=== PATIENT | female | born 1965 | race Caucasian/White ===

== ENCOUNTER → 2016-05-13 | Day surgery (SDC) | payer OTHER ==
[2016-04-29 09:52] VITALS: Ht 177.8 cm; Wt 113.6 kg
[~2016-05-13] VITALS: Ht 177.8 cm; Wt 113.6 kg
[~2016-05-13] MED LIST: ALBU1AER9 PO; ASCA500 PO; ATROPINE SULFATE 0.1 MG/ML 5ML SYR IV PRN; AZEL0.15 NAE; BUPIVACAINE/EPINEPHRINE 0.5% MPF 1:200,000 30 ML VIAL ONE; CALCTAB7 PO; CHOL100027 PO; CLINDAMYCIN PHOS 150 MG/ML 2 ML VIAL IV SCH; CMD5 PO; CYAN500T PO; DEXAMETHASONE SOD INJ 4 MG/ML VIAL ONE; DOXE10CA PO; ELET40TA PO; ENOX30IN4 SQ; EpHEDrine SULFATE INJ 50 MG/ML AMP IV PRN; FENTANYL CITRATE INJ 50 MCG/1 ML 2 ML VIAL IV PRN; FENTANYL CITRATE INJ 50 MCG/1 ML 2 ML VIAL ONE; FERR28TA2 PO; FURO-85 PO; GLC/500 PO; LACTATED RINGER'S 1000ML 1,000 ML IV SCH; LIDOCAINE HCL 1% 20 ML VIAL ONE; LIDOCAINE HCL 2% 2 ML VIAL (20MG/ML) ONE; MELA1TAB22 PO; METOCLOPRAMIDE HCL INJ 5 MG/ML 2 ML VIAL IV PRN; MIDAZOLAM HCL 1 MG/ML 2ML VIAL ONE; MULT-506 PO; MoRPHine SULFATE 4 MG/ML 1 ML CARP\\VIAL IV PRN; ONDANSETRON INJ 2 MG/ML 2 ML VIAL IV PRN; ONDANSETRON INJ 2 MG/ML 2 ML VIAL ONE; OXYCODONE/ACETAMINOPHEN 5-325 TAB PO PRN; POTASSIUM PO; PREG100C PO; PREG200C PO; PROP10TA7 PO; PROPOFOL IV EMULSION 10 MG/ML 20 ML VIAL IV ONE; SNG10 PO; SODIUM CHLORIDE 0.9% 1000ML 1,000 ML IV SCH; WARF-246 PO
--- NOTE | 2016-05-13 09:49 | History & Physical Bridge - SC ---
H&P Re-Evaluation Bridge Note: I have examined the patient, reviewed the History & Physical and in the interval since the performance of the History & Physical I have noted the following changes of clinical significance: No changes noted
--- NOTE | 2016-05-13 11:36 | Discharge Instructions-SurgCtr ---
Discharge Instructions Date of Service May 13, 2016. Visit Reason for Visit: Right Femur Osteochondroma Discharge Discharge Diagnosis / Problem: excision right femur osteochondroma Discharge Goals Goal(s): Decrease discomfort, Improve function, Increase independence Medications Stopped Medications Name(s): Coumadin stopped and lovenox started. Ref meds. Glucophage stopped for 3 days Restart Stopped Medication(s): Restart your Coumadin this evening 05/03/12 (take 15mg) Will most likely need to resume Lovenox , or until your INR is therapeutic. Recheck your PT/INR on Friday05/17/16 Activity Recommendations Activity Limitations: as noted below Lifting Limitations: gradually increase as tolerated Exercise/Sports Limitations: gradually increase as tolerated May Resume Sexual Activity: when tolerated Shower/Bathe: keep incision dry Weightbearing Status: Right weightbearing (as tolerated) Anesthesia . Post Anesthesia Instructions: If you have had General Anesthesia or IV Sedation: * Do not drive today. * Resume driving when surgeon permits. * Do not make important decisions or sign legal documents today. * Call surgeon for: 1. Temperature elevations greater than 101 degrees F. 2. Uncontrollable pain. 3. Excessive bleeding. 4. Persistent nausea and vomiting. 5. Medication intolerance (nausea, vomiting or rash). * For nausea and vomiting use only clear liquids such as: tea, soda, bouillon until nausea subsides, then gradually increase diet as tolerated. * If you have any concerns or questions, call your surgeon's office. If physician is unavailable and it is an emergency, call 911 or go to the nearest emergency room. . Instructions / Follow-Up Instructions / Follow-Up DIET: * Resume previous diet. MEDICATIONS: * Please take your prescriptions as instructed at your pre-op appointment and/ or see medication discharge instructions listed above. * If concerns develop, call your physician's office at . SPECIAL CARE INSTRUCTIONS: * Ice/Elevate as instructed. * Keep dressing clean, dry, intact. * Your surgical extremity may be discolored due to prepping agents used on the skin. A bluish-green tint is a normal variant and should not cause alarm. Call your doctor at [phone] if: * Temperature above 101 degrees * Pain not relieved by pain medicine ordered * There is increased drainage or redness from any incision * You have any unanswered questions, problems or concerns. FOLLOW UP VISIT: * If not already scheduled, please call the office at to schedule a follow-up appointment. Diet Recommendations Home Diet: resume previous diet Procedures Procedures Performed: Excision right femur osteochondroma Pending Studies Studies pending at discharge: yes List of pending studies: Bone biopsy right femur-osteochondroma Medical Emergencies . Who to Call and When: Medical Emergencies: If at any time you feel your situation is an emergency, please call 911 immediately. . Non-Emergent Contact Non-Emergency issues call your: Primary Care Provider . . "Provider Documentation" section prepared by Samir Gould. [place] Drug Monitoring Program Search Results: no issues identified
--- NOTE | 2016-05-13 11:39 | [facility] Post Operative Brief Note ---
Immediate Operative Summary Operative Date May 13, 2016. Pre-Operative Diagnosis Right Femur Osteochondroma Post-Operative Diagnosis Same Procedure(s) Performed Excision right femur osteochondroma Surgeon Dr. Lau Bisque Finisher Surgeon(s) Gurjit Gage MD Estimated Blood Loss 3 ml Findings same Specimens A.) Right Femur Osteochondroma Drains none Anesthesia general Complication(s) None Disposition Recovery Room / PACU
--- NOTE | 2016-05-13 11:42 | [facility] Operative Report ---
Operative Report Operative Date May 13, 2016. Pre-Operative Diagnosis Right Femur Osteochondroma Post-Operative Diagnosis Same Procedure(s) Performed Excision right femur osteochondroma Surgeon Dr. Lau Automotive Brake Technician Surgeon(s) Gurjit Gage MD Estimated Blood Loss 3 ml Findings Small Osteochondroma right distal femur. Fluids (cc crystalloids) 900 Specimens A.) Right Femur Osteochondroma Drains n/a Anesthesia LMA Complication(s) None Disposition Recovery Room / PACU (Stable) Implants n/a Indications The patient is a 50 year old female with a painful mass along the right distal lateral femur, that has not responded to conservative treatment. The patient understands the risks of surgery, which include but are not limited to: bleeding , infection, re-operation, damage to nerves and arteries, and continued pain. The patient understands all of these instructions and explanations, all of their questions have been satisfactorily addressed. The patient has elected to proceed with surgery and the informed consent was signed. Description of Procedure The patient was taken to the Operating Room and placed in the supine position on the operating table. After a multidisciplinary time-out was performed identifying my initials on the right lower leg as the correct and operative limb , the patient agreed. Prior to the incision being made, 600 mg of intravenous clindamycin was given. The right leg was prepped and draped in the usual Orthopaedic sterile fashion. After the local anesthetic had taken affect, and localizing the osteochondroma with fluoroscopy, a small 5 cm incision was made laterally, centered over the mass. This was carried down to the IT band and the mass was easily palpated. The IT band was split, 2 easily identified the osteochondroma along the distal lateral femur. The osteochondroma was removed with a small curved osteotome and rongeur. This was sent as specimen. The wound was copiously irrigated. Bone wax was placed over top of the small base of the excised osteochondroma. Again the wound was copiously irrigated. The IT band was closed with 0 Vicryl in a running locked fashion. The subcutaneous layer was closed with 3-0 Vicryl. The skin was closed with 3-0 Prolene in a running subcuticular fashion. Steri-Strips were placed over top. The incision was covered with Xeroform, 4x4's, sterile cast padding and an EDYTA. The sponge and needle counts were correct. Postoperative instructions: The patient will be weightbearing as tolerated. She will continue bridging with Lovenox and restarted her Coumadin tonight per the Coumadin clinic. She will follow-up with physical therapy in 2-3 days. She will follow-up with Dr. Lau in 10-15 days for suture removal. I attest to the content of the Intraoperative Record and any orders documented therein. Any exceptions are noted below.
--- NOTE | 2016-05-13 12:17 | Anesthesia Progress Nt - [facility] ---
Anesthesia Post Op Note Date & Time May 13, 2016 at 12:17 Vital Signs Pain Intensity: 0 Vital Signs Past 12 Hours Date Time Temp Pulse Resp B/P Pulse Ox O2 Delivery O2 Flow Rate FiO2 05/13/16 12:02 36.4 75 16 114/75 99 Mask 6 05/13/16 09:28 36.8 62 18 135/90 100 Room Air Notes Mental Status: alert / awake / arousable, participated in evaluation Pt Amnestic to Procedure: Yes Nausea / Vomiting: adequately controlled Pain: adequately controlled Airway Patency, RR, SpO2: stable & adequate BP & HR: stable & adequate Hydration State: stable & adequate Anesthetic Complications: no major complications apparent
[2016-05-13 12:50] VITALS: BP 148/93; PULSE 76; TEMP 36.7; O2SAT 97
== END | disposition home or self-care (01) ==
LOC: X.SURG 08:46
PROVIDERS: ATTEND Orthopaedic Surgery Sports Medicine
DX: D16.9 Benign neoplasm of bone and articular cartilage, unspecified (principal); Z86.718 Personal history of other venous thrombosis and embolism; J45.909 Unspecified asthma, uncomplicated; F41.9 Anxiety disorder, unspecified; E11.9 Type 2 diabetes mellitus without complications; E66.9 Obesity, unspecified; Z68.35 Body mass index [BMI] 35.0-35.9, adult; Z98.890 Other specified postprocedural states; Z79.01 Long term (current) use of anticoagulants

== ENCOUNTER → 2016-10-17 | Outpatient (CLI) | payer OTHER ==
[~2016-10-17] MED LIST changes: -ATROPINE SULFATE 0.1 MG/ML 5ML SYR IV PRN; -BUPIVACAINE/EPINEPHRINE 0.5% MPF 1:200,000 30 ML VIAL ONE; -CLINDAMYCIN PHOS 150 MG/ML 2 ML VIAL IV SCH; -DEXAMETHASONE SOD INJ 4 MG/ML VIAL ONE; -EpHEDrine SULFATE INJ 50 MG/ML AMP IV PRN; -FENTANYL CITRATE INJ 50 MCG/1 ML 2 ML VIAL IV PRN; -FENTANYL CITRATE INJ 50 MCG/1 ML 2 ML VIAL ONE; -LACTATED RINGER'S 1000ML 1,000 ML IV SCH; -LIDOCAINE HCL 1% 20 ML VIAL ONE; -LIDOCAINE HCL 2% 2 ML VIAL (20MG/ML) ONE; -METOCLOPRAMIDE HCL INJ 5 MG/ML 2 ML VIAL IV PRN; -MIDAZOLAM HCL 1 MG/ML 2ML VIAL ONE; -MoRPHine SULFATE 4 MG/ML 1 ML CARP\\VIAL IV PRN; -ONDANSETRON INJ 2 MG/ML 2 ML VIAL IV PRN; -ONDANSETRON INJ 2 MG/ML 2 ML VIAL ONE; -OXYCODONE/ACETAMINOPHEN 5-325 TAB PO PRN; -PROPOFOL IV EMULSION 10 MG/ML 20 ML VIAL IV ONE; -SODIUM CHLORIDE 0.9% 1000ML 1,000 ML IV SCH
--- NOTE | 2016-10-17 14:06 | MAMMOGRAPHY REPORT ---
BILATERAL DIGITAL SCREENING MAMMOGRAM TOMOSYNTHESIS WITH CAD: 10/17/2016 CLINICAL HISTORY: Routine screening. TECHNIQUE: Breast tomosynthesis in addition to standard 2D mammography was performed. Current study was also evaluated with a Computer Aided Detection (CAD) system. COMPARISON: Comparison is made to exams dated: 10/16/2015 mammogram, 10/12/2014 mammogram, 10/11/2013 m ammogram, 10/09/2012 mammogram, 10/02/2011 mammogram, and 09/11/2010 mammogram - [facility]. BREAST COMPOSITION: There are scattered areas of fibroglandular density in both breasts. FINDINGS: No suspicious masses, calcifications, or areas of architectural distortion are noted in ei ther breast. There has been no significant interval change compared to prior exams. IMPRESSION: ACR BI-RADS CATEGORY 1: NEGATIVE There is no mammographic evidence of malignancy. A 1 year screening mammogram is recommended. The pa tient will receive written notification of the results. Approximately 10% of breast cancers are not detected with mammography. A negative mammographic report should not delay biopsy if a clinically suggestive mass is present. Michelle Crespo M.D. /:10/17/2016 12:46:51 Forklift Driver: Natalie CARR(Mg)(M), [facility] letter sent: Normal 1/2 BI-RADS Code: ACR BI-RADS Category 1: Negative
== END | disposition home or self-care (01) ==
LOC: C.MAMM 10:56
PROVIDERS: ATTEND Family Medicine
DX: Z12.31 Encounter for screening mammogram for malignant neoplasm of breast (principal)

== ENCOUNTER 2017-05-25 20:00 | Emergency (ER) | payer OTHER ==
[~2017-05-25] VITALS: Ht 177.8 cm; Wt 123.2 kg
[2017-05-25 20:05] VITALS: TEMP 36.6; Ht 177.8 cm; Wt 123.2 kg
[2017-05-25] MEDS ORDERED: WARF10TA4 PO (20:29)
[2017-05-25] MEDS ORDERED: POTA20TA16 PO (20:33)
[2017-05-25] MEDS ORDERED: MAGN1TAB16 PO (20:36)
[2017-05-25] MEDS ORDERED: RIBO1TAB PO (20:36)
[2017-05-25 20:48] VITALS: BP 143/90; PULSE 74; O2SAT 96
--- NOTE | 2017-05-25 21:02 | EMERGENCY ROOM VISIT NOTE ---
History First contact with patient: 20:10 Chief Complaint: EYE ASSESSMENT Stated Complaint: RIGHT ARM AND LEFT EYE IS PUFFY AND HARD TO SEE History of Present Illness The patient is a 52 year old female who presents to the Emergency Room with complaints of swelling around her eyes, right worse than left. Patient reports that she started to notice swelling on Friday, and the swelling has mildly worsened. She also reports mild itching. The patient denies any other recent upper respiratory symptoms such as runny nose, congestion, sore throat or cough. The patient reports that she drank a new wine on Friday, but does not feel that that caused her symptoms. She also ate some new Maltese food from a restaurant that she usually eats. She denies any other seasonal or contact allergies. The patient then remembered that she developed an itchy scalp and crusting of her scalp after having her hair cleaned and dyed the day before. She denies any pain, headache or fevers. She also denies any blurred vision. 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 Social History Smoking Status: Former Smoker Drug Use: none Marital Status: single Housing Status: lives alone Occupation Status: unemployed Current/Historical Medications Scheduled Ascorbic Acid (Vitamin C), 500 MG PO QAM Azelastine Hcl (Astepro), 2 [place] BID Calcium Carbonate-Vitamin D W/ (Caltrate 600 Plus), 1 TAB PO QAM Cholecalciferol (Vitamin D 1000 Unit), 2,000 INTER.UNIT PO QAM Cyanocobalamin (Vitamin B-12), 500 MCG PO QAM Doxepin (Sinequan), 10 MG PO HS Ferrous Sulfate (Iron), 1 TAB PO BID Furosemide (Lasix), 20 MG PO BID Magnesium (Chelated Magnesium), 1 TAB PO DAILY Melatonin-Pyridoxine (Melatonin), 1 TAB PO HS Metformin Hcl (Glucophage), 500 MG PO BID Montelukast (Singulair *), 10 MG PO HS Multivitamin (Multivitamin), 1 TAB PO QAM Potassium Ext Rel (Klor-Con), 20 MEQ PO DAILY Pregabalin (Lyrica), 200 MG PO BID Propranolol (Inderal), 10 MG PO QID Riboflavin (B-2), 400 MG PO DAILY Warfarin Sod (Jantoven), 10 MG PO DAILY Warfarin Sodium (Warfarin Sodium), 5 TAB PO WK Scheduled PRN Albuterol (Proair Hfa), 2 PUFFS PO Q4H PRN for SOB/Wheezing Eletriptan (Relpax), 40 MG PO UD PRN for Migraine Physical Exam Vital Signs Date Time Temp Pulse Resp B/P (MAP) Pulse Ox O2 Delivery O2 Flow Rate FiO2 05/25/17 20:48 74 18 143/90 96 05/25/17 20:05 36.6 74 18 143/90 96 Room Air Right Eye Acuity: 20/70 Left Eye Acuity: 20/40 Physical Exam CONSTITUTIONAL: Healthy and well nourished. Alert and oriented X 3 with positive affect. Patient does not appear in any acute distress. HEENT: Examination shows periorbital edema, right worse than left. The tissue is normal color and fluctuant. It is not warm to palpation. EOMs intact. Pupils equal round and reactive. Further examination shows erythema and scaling of the scalp, consistent with chemical dermatitis. She has no other erythema on the face. Ears and nares are clear. OROPHARYNX: No tonsillar hypertrophy, evidence of angioedema or exudates. NECK: Full active range of motion without discomfort. No JVD or carotid bruits. RESPIRATORY: Clear to auscultation bilaterally with no wheezing, crackles, rhonchi or stridor. CARDIOVASCULAR: Regular rate and rhythm with no murmurs, rubs or gallops. MUSCULOSKELETAL: Full range of motion of all joints without discomfort. INTEGUMENTARY: No rash or other significant dermatologic conditions noted. NEUROLOGIC: No focal neurologic deficits noted. Medical Decision & Procedures ED Course Patient history and physical exam were performed. Nurse's notes were reviewed. Vital signs were reviewed, showing a mildly elevated blood pressure 143/90. Clinical exam and history are most consistent with an allergic contact dermatitis. The patient reports that she has been taking Benadryl. The patient reports that she has also been applying heat to the face. The patient was encouraged to apply cool compresses or ice instead for the swelling. She may also take additional antihistamine such as Claritin for additional relief. She was encouraged to follow-up with her PCP as needed for further management. Return to the emergency department for any significantly worsening swelling or developing swelling of the lips/tongue/throat, difficulty breathing, palpitations or other concerns. The patient was happy with plan of care, and voiced understanding of all discharge instructions. Medical Decision Blood Pressure Screening Patient's blood pressure: Elevated blood pressure Blood pressure disposition: Did not require urgent referral Impression Primary Impression: Allergic reaction to chemical substance Additional Impression: Elevated blood pressure reading Departure Information Dispostion Home / Self-Care Forms HOME CARE DOCUMENTATION FORM, IMPORTANT VISIT INFORMATION Patient Instructions Scary Mommy Additional Instructions Intermittently apply ice to the eyes for swelling and itching. Continue with Benadryl 25-50 mg every 6-8 hours. You may also take Claritin for additional relief. Follow-up with your family doctor as needed for further management. Suggest going to your hairstylist and write down the name of the new products that they used which caused this reaction. Problem Qualifiers Primary Impression: Allergic reaction to chemical substance Encounter type: initial encounter Injury intent: accidental or unintentional Qualified Codes: T65.91XA - Toxic effect of unspecified substance, accidental (unintentional), initial encounter
== END 2017-05-25 20:49 | disposition home or self-care (01) ==
LOC: C.EDB 20:01 → C.EDD 20:49
DX: T65.91XA Toxic effect of unspecified substance, accidental (unintentional), initial encounter (principal); R03.0 Elevated blood-pressure reading, without diagnosis of hypertension; E11.9 Type 2 diabetes mellitus without complications; Z86.718 Personal history of other venous thrombosis and embolism; Z87.891 Personal history of nicotine dependence; Z79.01 Long term (current) use of anticoagulants; Z79.84 Long term (current) use of oral hypoglycemic drugs

== ENCOUNTER → 2017-10-20 | Outpatient (CLI) | payer OTHER ==
[~2017-10-20] MED LIST changes: -CMD5 PO; -ENOX30IN4 SQ; +MAGN1TAB16 PO; +POTA-639 PO; -POTASSIUM PO; -PREG100C PO; +RIBO1TAB PO; +WARF10TA4 PO
--- NOTE | 2017-10-21 07:00 | MAMMOGRAPHY REPORT ---
BILATERAL DIGITAL SCREENING MAMMOGRAM TOMOSYNTHESIS WITH CAD: 10/20/2017 CLINICAL HISTORY: Routine screening. TECHNIQUE: The study was acquired using full field digital technology and interpreted from soft copy. Breast tomosynthesis in addition to standard 2D mammography was performed. Current study was also ev aluated with a Computer Aided Detection (CAD) system. COMPARISON: Comparison is made to exams dated: 10/17/2016 mammogram, 10/16/2015 mammogram, 10/12/2014 m ammogram, 10/11/2013 mammogram, 10/09/2012 mammogram, and 10/02/2011 mammogram - [facility] ter. BREAST COMPOSITION: There are scattered areas of fibroglandular density in both breasts. FINDINGS: There is an 8 mm focal asymmetry in the 12:00 versus central middle one third of the right breast, and a 6 mm focal asymmetry in the 3:00 anterior right breast, for which additional spot compr ession tomosynthesis views and possible ultrasound are recommended. There is stable nodularity in the lateral left breast. No other suspicious mass, architectural distor tion or cluster of microcalcifications is seen. IMPRESSION: ACR BI-RADS CATEGORY 0: INCOMPLETE EVALUATION: NEED ADDITIONAL IMAGING EVALUATION The 8 mm focal asymmetry in the 12:00 versus central right breast, and 6 mm focal asymmetry in the 3: 00 anterior right breast needs additional evaluation. The patient will be called to schedule an appointment. Some breast cancers are not detected with mammography. A negative mammographic report should not gian y biopsy if a clinically suggestive mass is present. Belkis Palmer M.D. ay/:10/20/2017 15:30:35 Web Site Developer: RT Ana(Mg)(M), [facility] letter sent: Addl Imaging 0 BI-RADS Code: ACR BI-RADS Category 0: Incomplete Evaluation: Need Additional Imaging Evaluation
== END | disposition home or self-care (01) ==
LOC: C.MAMM 12:04
PROVIDERS: ATTEND Student in an Organized Health Care Education/Training Program
DX: Z12.31 Encounter for screening mammogram for malignant neoplasm of breast (principal); N64.89 Other specified disorders of breast

== ENCOUNTER 2021-04-24 13:02 | Inpatient (IN) ==
--- NOTE | 2021-04-24 14:13 | Emergency Department Note ---
Impression & Plan Left leg cellulitis, Current use of prison anticoagulation, Surgical wound, non healing, Stage IV pressure ulcer, Supratherapeutic INR ED Provider Note NAME: GABRIELLA VELASQUEZ AGE: 55 SEX: F : 1965 ARRIVES VIA: Walk-In INFORMANT: Patient, ED PROVIDER(S): Godfrey Vale MD Chief Complaint: Foot and ankle wounds, outpatient referral HPI: Patient did present at the behest of the wound memory care program director Cindy Nguyen as well as her primary orthopedist Dr. Mabel Wilkins at [facility] due to concern for worsening left lower extremity wounds and redness. Patient denies any fevers or chills. The patient has had some increasing fatigability. Patient denies any nausea vomiting or issues with defecation or urination. The patient has had chronic wound issues for approximate 3 years surfaced since she had a surgery to her left ankle for arthritic changes. Patient has been seen at the wound cancer center in the past but noticed a new wound over her left second digit and has worsening wound over the medial aspect of the left ankle. Patient has noticed some increasing redness which been ongoing approximate 3 to 4 days. Patient denies any back pain or shortness of breath. Patient is vaccinated for COVID and denies any alcohol tobacco or drug use. Patient was seen today by Cindy Nguyen. They are concerned about surgical wounds that are nonhealing. Patient did have debridement of wounds with minimal bleeding. There is concern for developing cellulitis. Patient does have a new stage IV pressure ulcer to the left second toe which occurred from wearing a toe spacer. Wound was debrided. I had called Dr. Mabel Wilkins's office at [facility] who recommended arterial duplex studies as well as CT scan of the foot. ROS: See HPI for pertinent positives and negatives. A total of 10 systems were reviewed and otherwise negative. Past medical history: See below Surgical history: See below Social history: See below Physical Exam: GENERAL: NAD, wearing glasses, wearing a mask, non-toxic. EYE EXAM: Normal conjunctiva. PERRL, no anisocoria and EOM's grossly intact w/o pain. NECK: Supple, no nuchal rigidity, no adenopathy, non-tender. No signs of meningismus. LUNGS: Clear to auscultation. Normal chest wall mechanics. HEART: NSR, no MRG. ABDOMEN: Abdomen soft, non-tender, normo-active bowel sounds, no masses, no rebound or guarding. BACK: No CVA TTP. SKIN: No rashes and no bruising. UPPER EXTREMITIES: Upper extremities are grossly normal. LOWER EXTREMITIES: Left lower extremity blanching redness with soft compartments and without any blistering, 2 separate stage II ulcerations 1 over the lateral aspect of the dorsum of the foot as well as the medial aspect of the left ankle, stage II-III ulceration over the medial aspect of the left foot as well as a stage IV ulceration to the plantar aspect of the left second digit. NEURO EXAM: A&O x3, cranial nerves II-XII grossly intact, normal speech, moves all 4 extremities on command w/o issue. Good finger to nose, no drift, no sensory deficits. Differential diagnoses: Course: Patient was seen and evaluated the bedside. Full history physical exam was performed. EKG interpreted by me Normal sinus rhythm, rate of 75, normal intervals, normal axis, no ST changes or T WI. Imaging Studies: See Below Cardiac monitoring: An order was placed for continuous cardiac monitoring. The monitor shows a rate of 72 with sinus rhythm. MDM: Patient was seen due to concern for worsening wounds of the left lower extremity that have not healed well postsurgically. The patient was seen in wound care today and referred here for further evaluation and treatment after discussion with her primary orthopedist. Blood work was obtained. I did speak with the pharmacist in order to treat appropriately for cellulitis with possible osteomyelitis. Patient is a normal white count hemoglobin of 10.8. The patient platelet count is unremarkable. The patient's INR is supratherapeutic at 3.8. Kidney function is unremarkable. Urinalysis negative. Covid negative. Patient's chest x-ray is cleared. Orthopedics was recommending arterial Doppler as well as MRI of the foot. Patient's arterial Doppler is unremarkable. MRI of the foot does show that her exam is compromised by motion artifact and metallic hardware. No obvious signs of osteomyelitis. The patient does have soft tissue edema in the forefoot. No obvious abscess. It has been to the on-call hospitalist Tanika Varner PA-C and the patient was admitted by Dr. Ponce. 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 Anxiety Asthma controlled Chronic back pain Deep vein thrombosis LLE (several years ago - control pills)- on warfarin Degenerative disc disease Depression Dysfunctional uterine bleeding GERD (gastroesophageal reflux disease) controlled Insulin resistance metformin BID Migraine on monthly Ajovy injection Morbid obesity Morbid obesity with BMI of 40.0-44.9, adult Osteoarthritis Post traumatic stress disorder Sleep apnea CPAP Symptomatic anemia Surgical History H/O arthroscopy of left knee H/O arthroscopy of right knee x3 Right knee arthroscopy, chondroplasty (03/17/2020): LMA #4 at [facility] [place] History of arthroscopic knee surgery History of back surgery History of colonoscopy History of dilatation and curettage History of foot surgery S/P epidural steroid injection S/P foot surgery, left S/P lumbar fusion Family History Other Asthma Heart disease Hypertension No family history of adverse response to anesthesia Social History Smoking Status: Former smoker Smoking End Date: 2006; Second Hand Exposure: Yes (as a child); Hx Alcohol Use: Yes Hx Substance Use: No Preferred Language: Cuban Communication Ability: Effective Self Pay Specialist Required: No Beliefs That Will Affect Care: None Current Living Situation: Family Current Living Situation Comment: son Feels Safe at Home: Yes Assistive Devices: Contacts, CPAP, Crutches, Denture - Upper, Denture - Lower, Glasses, Hearing Aid - Bilateral and Walker Allergies Allergies Allergy/AdvReac Type Severity Reaction Status Date / Time enoxaparin Allergy Severe Hives Verified 04/24/21 09:23 hydrocortisone Allergy Mild Rash Verified 04/24/21 09:23 Penicillins Allergy Unknown Unknown Verified 04/24/21 09:23 childhood reaction vicryl nylon stitches AdvReac Severe Non-healing Uncoded 04/13/21 10:03 wound Home Meds Home Medications Medication Instructions Recorded Confirmed albuterol sulfate 90 mcg/actuation 1 inh INHALATION Q6H PRN 02/10/20 04/24/21 breath activated powder inhaler,sensor ascorbic acid (vitamin C) 100 mg 300 mg PO QAM 02/10/20 04/24/21 chewable tablet azelastine 137 mcg (0.1 %) nasal 1 spray INTRANASAL BID 02/10/20 04/24/21 spray aerosol cetirizine 10 mg tablet (Zyrtec) 10 mg PO BID 02/10/20 04/24/21 cholecalciferol (vitamin D3) 50 2,000 unit PO QAM 02/10/20 04/24/21 mcg (2,000 unit) tablet (Vitamin D3) cyanocobalamin (vitamin B-12) 50 100 mcg PO QAM 02/10/20 04/24/21 mcg tablet (Vitamin B-12) fremanezumab-vfrm 225 mg/1.5 mL 225 mg SUBCUT MONTHLY 02/10/20 04/24/21 subcutaneous auto-injector (Ajovy) magnesium oxide 400 mg PO QAM 02/10/20 04/24/21 metformin 500 mg tablet 500 mg PO BID 02/10/20 04/24/21 montelukast 10 mg tablet 10 mg PO HS 02/10/20 04/24/21 (Singulair) multivit,Ca,min-iron gluconat 1 3 tab PO QAM 02/10/20 04/24/21 mg-FA 66.7 mcg-biotin 1,000 mcg tablet (Hair,Skin and Nails) omeprazole 20 mg tablet,delayed 20 mg PO QAM 02/10/20 04/24/21 release pregabalin 200 mg capsule (Lyrica) 200 mg PO BID 02/10/20 04/24/21 warfarin 5 mg tablet 5 - 10 mg PO DIRECTED 02/10/20 04/24/21 multivitamin with minerals-folic 2 tab PO DAILY 09/01/20 04/24/21 acid 200 mcg chewable tablet (Adult Multivitamin Gummies) fluoxetine 40 mg capsule 80 mg PO DAILY 04/24/21 04/24/21 furosemide 20 mg tablet (Lasix) 20 mg PO BID 04/24/21 04/24/21 mirtazapine 15 mg tablet (Remeron) 15 mg PO HS 04/24/21 04/24/21 nitroglycerin 0.2 mg/hr 1 patch TOPICAL DAILY 04/24/21 04/24/21 transdermal 24 hour patch potassium chloride 10 mEq 10 meq PO DAILY 04/24/21 04/24/21 tablet,extended release(part/cryst) trazodone 100 mg tablet 100 mg PO HS 04/24/21 04/24/21 Previous Rx's Medication Instructions Recorded Saccharomyces boulardii 250 mg 250 mg PO BID #20 cap 09/01/20 capsule (Florastor) docusate sodium 100 mg capsule 100 mg PO BID #60 cap 09/22/20 (Colace) sennosides 8.6 mg tablet (Senokot) 8.6 mg PO HS #30 tab 09/22/20 Results & Data (ED) Vital Signs Vital Signs - 24 hr 04/24/21 13:09 04/24/21 15:38 Temperature 36.6 C Temperature Source Temporal Artery Scan Pulse Rate 83 Respiratory Rate 20 Respiratory Effort / Characteristics Non-Labored Spontaneous Non-Labored Respiratory Depth Normal Respiratory Pattern Regular Blood Pressure 134/76 Blood Pressure Mean 95 Blood Pressure Position Lying Pulse Oximetry 100 95 Oxygen Delivery Method Room Air Room Air Sepsis Recent Fever Within 48 Hours No Sepsis New/Unexplained Change in Mental Status N/A Sepsis Action Taken by Nursing No Action Required Home Medications Current Medication List: was personally reviewed by me Laboratory Data Attestation: I reviewed the patient's lab results. Result diagrams: 04/24/21 15:21 04/24/21 15:21 Lab Results 04/24/21 04/24/21 04/24/21 Range/Units 15:21 15:21 15:21 WBC 5.79 (4.8-10.8) K/uL RBC 3.72 L (4.2-5.4) M/uL Hgb 10.5 L (12.0-16.0) g/dL Hct 33.7 L (37-47) % MCV 90.6 (80-100) fL MCH 28.2 (25-34) pg MCHC 31.2 L (32-36) g/dL RDW Std Deviation 53.4 H (36.4-46.3) fL RDW Coeff of Bonnie 16.0 H (11.5-14.5) % Plt Count 292 (130-400) K/uL MPV 10.2 (7.4-10.4) fL Immature Gran % (Auto) 0.0 % Neut % (Auto) 65.0 % Lymph % (Auto) 21.2 % Fannin % (Auto) 7.1 % Eos % (Auto) 6.2 % Baso % (Auto) 0.5 % Neut # (Auto) 3.76 (1.4-6.5) K/uL Lymph # (Auto) 1.23 (1.2-3.4) K/uL Fannin # (Auto) 0.41 (0.11-0.59) K/uL Eos # (Auto) 0.36 (0-0.5) K/uL Baso # (Auto) 0.03 (0-0.2) K/uL Immature Gran # (Auto) 0.00 (0.00-0.02) K/uL ESR (0-30) mm/hr PT 34.8 H (9.0-12.0) Seconds INR 3.8 H (0.9-1.1) APTT 54.7 H* (21.0-31.0) Seconds PTT Ratio 2.1 Sodium 142 (136-145) mmol/L Potassium 3.8 (3.5-5.1) mmol/L Chloride 106 (98-107) mmol/L Carbon Dioxide 28 (21-32) mmol/L Anion Gap 8 (3-11) BUN 9 (6-23) mg/dl Creatinine 0.72 (0.6-1.2) mg/dl Est Cr Clr Drug Dosing 123.9 ml/min Est GFR ( Amer) 107.7 ml/min Est GFR (Non-Af Amer) 93.0 ml/min BUN/Creatinine Ratio 12.5 (10-20) Glucose 94 (70-99(Fasting)) mg/dl Lactate (0.4-2.0) mmol/L Calcium 9.2 (8.5-10.1) mg/dl Magnesium 1.7 (1.7-2.4) mg/dl Total Bilirubin 0.3 (0.2-1.0) mg/dl AST 18 (13-39) U/L ALT 18 (7-52) U/L Alkaline Phosphatase 98 (34-104) U/L C-Reactive Protein 6.14 H (0-0.5) mg/dl Total Protein 7.1 (6.0-8.3) gm/dl Albumin 3.8 (3.4-5.0) gm/dl Globulin 3.3 (2.5-4.0) gm/dl Albumin/Globulin Ratio 1.2 (0.9-2) 04/24/21 04/24/21 Range/Units 15:21 15:21 WBC (4.8-10.8) K/uL RBC (4.2-5.4) M/uL Hgb (12.0-16.0) g/dL Hct (37-47) % MCV (80-100) fL MCH (25-34) pg MCHC (32-36) g/dL RDW Std Deviation (36.4-46.3) fL RDW Coeff of Bonnie (11.5-14.5) % Plt Count (130-400) K/uL MPV (7.4-10.4) fL Immature Gran % (Auto) % Neut % (Auto) % Lymph % (Auto) % Fannin % (Auto) % Eos % (Auto) % Baso % (Auto) % Neut # (Auto) (1.4-6.5) K/uL Lymph # (Auto) (1.2-3.4) K/uL Fannin # (Auto) (0.11-0.59) K/uL Eos # (Auto) (0-0.5) K/uL Baso # (Auto) (0-0.2) K/uL Immature Gran # (Auto) (0.00-0.02) K/uL ESR 99 H (0-30) mm/hr PT (9.0-12.0) Seconds INR (0.9-1.1) APTT (21.0-31.0) Seconds PTT Ratio Sodium (136-145) mmol/L Potassium (3.5-5.1) mmol/L Chloride (98-107) mmol/L Carbon Dioxide (21-32) mmol/L Anion Gap (3-11) BUN (6-23) mg/dl Creatinine (0.6-1.2) mg/dl Est Cr Clr Drug Dosing ml/min Est GFR ( Amer) ml/min Est GFR (Non-Af Amer) ml/min BUN/Creatinine Ratio (10-20) Glucose (70-99(Fasting)) mg/dl Lactate 0.7 (0.4-2.0) mmol/L Calcium (8.5-10.1) mg/dl Magnesium (1.7-2.4) mg/dl Total Bilirubin (0.2-1.0) mg/dl AST (13-39) U/L ALT (7-52) U/L Alkaline Phosphatase (34-104) U/L C-Reactive Protein (0-0.5) mg/dl Total Protein (6.0-8.3) gm/dl Albumin (3.4-5.0) gm/dl Globulin (2.5-4.0) gm/dl Albumin/Globulin Ratio (0.9-2) Administered Medications Furosemide (Furosemide 20 Mg Tab) 20 mg PO [id number] LUAN Stop: 05/24/21 20:59 Last Admin: 04/24/21 21:29 Dose: Not Given Documented by: [id number] Cefepime HCl 2,000 mg/ Syringe 20 mls @ 5 mls/min IV Q12H LUAN Stop: 05/01/21 20:59 Last Admin: 04/24/21 20:56 Dose: 5 mls/min Documented by: [id number] Discontinued Medications Piperacillin Sod/Tazobactam Sod (Zosyn) 4.5 gm in 120 mls @ 240 mls/hr IV NOW ONE Stop: 04/24/21 15:29 Last Infusion: 04/24/21 17:07 Dose: 0 mls/hr Documented by: [id number] Admin: 04/24/21 15:48 Dose: 240 mls/hr Documented by: [id number] Daptomycin 550 mg/ Syringe 11 mls @ 5.5 mls/min IV NOW ONE; Protocol Stop: 04/24/21 15:01 Last Admin: 04/24/21 19:15 Dose: 5.5 mls/min Documented by: [id number] Miscellaneous Information (Consult Pharmacy) 1 ea N/A NOW STA Stop: 04/24/21 17:42 Last Admin: 04/24/21 19:15 Dose: 1 ea Documented by: [id number] Imaging Data Radiologist's Impression: Chest X-Ray 04/24/21 14:38 SINGLE VIEW CHEST CLINICAL HISTORY: Sepsis. FINDINGS: An AP, portable, upright chest radiograph is compared to study dated 03/12/2007. The heart is top normal for projection noting atherosclerotic calcification of the thoracic aorta. There is mild bibasilar atelectasis and chronic elevation of the right hemidiaphragm. The lungs and pleural spaces are otherwise clear. No pneumothorax is seen. The skeletal structures are osteo penic. The bony thorax is grossly intact. IMPRESSION: No active disease in the chest. ACT 112: Negative or not required by law. Electronically signed by: Romeo Nelson M.D. 04/24/2021 4:01 PM Duplex Scan Lower Extremity Artery 04/24/21 14:38 ULTRASOUND LEFT LOWER EXTREMITY ARTERIAL CLINICAL HISTORY: Left lower extremity cellulitis and wounds. COMPARISON STUDY: No priors. TECHNIQUE: Real-time grayscale and color Doppler sonography of the left lower extremity arteries is performed from the inguinal crease to the foot. Ankle- brachial indices were not obtained. FINDINGS: Atherosclerotic plaque and irregularity is seen throughout the arteries of the left lower extremity. There are triphasic waveforms in the common femoral artery with velocities measuring up to 175 cm/s. The profunda femoris artery is patent with velocities measuring up to 135 cm/s. There are triphasic waveforms throughout the superficial femoral artery with velocities measuring up to 163 cm/s. The popliteal artery is patent with velocities measuring up to 137 cm/s. There is three-vessel runoff to the foot. Velocities w ithin the calf arteries measure up to 133 cm/s. The dorsalis pedis artery is patent with velocities measuring up to 55 cm/s. Soft tissue edema is noted in the calf. IMPRESSION: There is no sonographic evidence of high-grade stenosis or focal vessel occlusion throughout the arteries of the left lower extremity. Dictated: 04/24/2021 6:45 PM Transcribed: 04/24/2021 7:04 PM Cassie [id number] [facility] Electronically signed by: Romeo Nelson M.D. 04/24/2021 7:07 PM Foot MRI 04/24/21 14:55 MRI OF THE LEFT FOREFOOT WITHOUT IV CONTRAST CLINICAL HISTORY: Foot infection. Clinical concern for osteomyelitis. COMPARISON STUDY: Radiographs of the left foot dated 04/05/2021. MRI of the left foot dated 04/02/2021. TECHNIQUE: MRI of the left forefoot is performed utilizing various T1 and T2- weighted sequences in the axial, sagittal, and coronal planes. IV contrast was not administered for this examination. The examination is severely degraded by motion artifact, as well as by susceptibility artifact from metallic hardware in the medial midfoot. FINDINGS: Marrow signal intensity is heterogeneous. Postoperative change is seen in the midfoot involving the medial cuneiform and navicular. Susceptibility artifact from the orthopedic hardware degrades assessment of these bones. There is no marrow edema identified typical for osteomyelitis. There is no MRI evidence of acute fracture. Degenerative change is seen throughout the midfoot. Soft tissue edema is suggested throughout the forefoot. No organized fluid collection is seen to indicate abscess. The imaged flexor and extensor tendons appear intact. IMPRESSION: 1. The examination is significantly compromised by motion artifact and susceptibility artifact from metallic hardware. 2. There is no marrow change identified typical for osteomyelitis. 3. Diffuse soft tissue edema in the forefoot suggests cellulitis. Clinical correlation will be required. 4. No organized fluid collection is seen to indicate abscess. Dictated: 04/24/2021 5:53 PM Transcribed: 04/24/2021 6:13 PM Cassie [id number] [facility] Electronically signed by: Romeo Nelson M.D. 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
[2021-04-24] MEDS ORDERED: DAPTOmycin 550 MG in SYRINGE 0 ML IV ONE (15:00)
[2021-04-24] MEDS ORDERED: PIPERACILLIN/TAZOBACTAM 4.5 GM/120 ML BAG IV ONE (15:00)
[2021-04-24 15:35] LABS: Basophils # (auto) 0.03 K/uL (0-0.2); Basophils % (auto) 0.5 %; Eosinophils # (auto) 0.36 K/uL (0-0.5); Eosinophils % (auto) 6.2 %; Hematocrit (blood only) 33.7 % (37-47); Hemoglobin 10.5 g/dL (12.0-16.0); Lymphocytes # (auto) 1.23 K/uL (1.2-3.4); Lymphocytes % (auto) 21.2 %; Mean Corpuscular Hemoglobin 28.2 pg (25-34); Mean Corpuscular Hgb Conc 31.2 g/dL (32-36); Mean Corpuscular Volume 90.6 fL (80-100); Mean Platelet Volume 10.2 fL (7.4-10.4); Monocytes # (auto) 0.41 K/uL (0.11-0.59); Monocytes % (auto) 7.1 %; Neutrophils # (auto) 3.76 K/uL (1.4-6.5); Platelet Count 292 K/uL (130-400); RDW Standard Deviation 53.4 fL (36.4-46.3); Red Blood Count 3.72 M/uL (4.2-5.4); White Blood Count 5.79 K/uL (4.8-10.8)
[2021-04-24 16:01] LABS: Albumin Globulin Ratio 1.2 (0.9-2); Albumin Level 3.8 gm/dl (3.4-5.0); BUN Creatinine Ratio 12.5 (10-20); Bilirubin,Total 0.3 mg/dl (0.2-1.0); C Reactive Protein 6.14 mg/dl (0-0.5); Calcium 9.2 mg/dl (8.5-10.1); Creatinine Clr Calc Pharmacy 123.9 ml/min; Est GFR (African American) 107.7 ml/min; Globulin 3.3 gm/dl (2.5-4.0); Magnesium 1.7 mg/dl (1.7-2.4); Potassium 3.8 mmol/L (3.5-5.1); Total Protein 7.1 gm/dl (6.0-8.3)
[2021-04-24 16:02] LABS: INR 3.8 (0.9-1.1); Partial Thromboplastin Ratio 2.1; Prothrombin Time 34.8 Seconds (9.0-12.0)
--- NOTE | 2021-04-24 16:03 | XRay Report ---
SINGLE VIEW CHEST CLINICAL HISTORY: Sepsis. FINDINGS: An AP, portable, upright chest radiograph is compared to study dated 03/12/2007. The heart i s top normal for projection noting atherosclerotic calcification of the thoracic aorta. There is mild bibasilar atelectasis and chronic elevation of the right hemidiaphragm. The lungs and pleural spaces are otherwise clear. No pneumothorax is seen. The skeletal structures are osteopenic. The bony thora x is grossly intact. IMPRESSION: No active disease in the chest. ACT 112: Negative or not required by law. Electronically signed by: Romeo Nelson M.D. 04/24/2021 4:01 PM
--- NOTE | 2021-04-24 16:28 | History & Physical Report ---
Date of Service April 24, 2021 Assessment & Plan (1) Surgical wound, non healing: (2) Stage IV pressure ulcer: (3) Left leg cellulitis: Plan: This is a 55yo F with a PMH of chronic left lower extremity and foot wounds, migraine, depression, anxiety, history of DVT, asthma, RAYMOND on CPAP who presents from wound care with worsening left lower extremity wounds and cellulitis. History of non-healing surgical ankle and foot wounds from previous orthopedic surgery LLE wounds were debrided today at wound clinic but due to concern for cellulitis and new stage IV pressure ulcer on L second toe, sent to ED for further evaluation Follows with foot surgeon Dr. Dueñas of [facility] for this chronic wound as well as wound care Afebrile, no leukocytosis, ESR 99, CRP 6 Foot MRI significantly compromised by motion artifact and susceptibility artifact from metallic hardware. No marrow change identified typical for osteomyelitis. Diffuse soft tissue edema in the forefoot suggests cellulitis Continue empiric abx coverage with vanc and cefepime Follow wound and blood cultures Arterial duplex studies pending Routine orthopedic consult (4) Supratherapeutic INR: (5) DVT (deep venous thrombosis): Plan: On coumadin for h/o DVT. INR 3.8 today - hold this evening and recheck INR in AM (6) Anxiety: (7) Depression: Plan: Continue fluoxetine, recently started on Mirtazapine, trazodone Follows with Dr. Espinal, psychiatry (8) Sleep apnea: Plan: CPAP HS DVT Ppx: Holding coumadin with supratherapeutic INR. Recheck tomorrow Code status: FULL PCP: Derek Dispo: Admit to med/surg Patient seen in collaboration with Dr. Garner. Please see addendum. History of Present Illness Chief Complaint: LLE wounds Primary Care Provider: Rama Reed MD This is a 55yo F with a PMH of chronic left lower extremity and foot wounds, migraine, depression, anxiety, history of LLE DVT, asthma, RAYMOND on CPAP who presents from wound care with worsening left lower extremity wounds. Has history of non-healing surgical ankle and foot wounds from previous orthopedic surgery. LLE wounds were debrided today but due to concern for cellulitis and new stage IV pressure ulcer on L second toe, sent to ED for further evaluation. Has been offloading and wearing cam boot. Following with Dr. Dueñas of [facility] for this chronic wound and was due for CT scan and arterial duplex studies in [place] tomorrow. Of note, wound culture from previous visit was negative. Endorsing increased pain and drainage of L foot wounds as well as nausea. Has felt more fatigued over past 2 days. Changes own wound drainage. Denies fever, chills, lightheadedness, CP, SOB, vomiting, abdominal pain, dysuria, diarrhea or constipation. Allergies Allergy/AdvReac Type Severity Reaction Status Date / Time enoxaparin Allergy Severe Hives Verified 04/24/21 09:23 hydrocortisone Allergy Mild Rash Verified 04/24/21 09:23 Penicillins Allergy Unknown Unknown Verified 04/24/21 09:23 childhood reaction vicryl nylon stitches AdvReac Severe Non-healing Uncoded 04/13/21 10:03 wound Home Medications Medication Instructions Recorded Confirmed Type albuterol sulfate 90 mcg/actuation 1 inh INHALATION Q6H PRN 02/10/20 04/24/21 History breath activated powder inhaler,sensor ascorbic acid (vitamin C) 100 mg 300 mg PO QAM 02/10/20 04/24/21 History chewable tablet azelastine 137 mcg (0.1 %) nasal 1 spray INTRANASAL BID 02/10/20 04/24/21 History spray aerosol cetirizine 10 mg tablet (Zyrtec) 10 mg PO BID 02/10/20 04/24/21 History cholecalciferol (vitamin D3) 50 2,000 unit PO QAM 02/10/20 04/24/21 History mcg (2,000 unit) tablet (Vitamin D3) cyanocobalamin (vitamin B-12) 50 100 mcg PO QAM 02/10/20 04/24/21 History mcg tablet (Vitamin B-12) fremanezumab-vfrm 225 mg/1.5 mL 225 mg SUBCUT MONTHLY 02/10/20 04/24/21 History subcutaneous auto-injector (Ajovy) magnesium oxide 400 mg PO QAM 02/10/20 04/24/21 History metformin 500 mg tablet 500 mg PO BID 02/10/20 04/24/21 History montelukast 10 mg tablet 10 mg PO HS 02/10/20 04/24/21 History (Singulair) multivit,Ca,min-iron gluconat 1 3 tab PO QAM 02/10/20 04/24/21 History mg-FA 66.7 mcg-biotin 1,000 mcg tablet (Hair,Skin and Nails) omeprazole 20 mg tablet,delayed 20 mg PO QAM 02/10/20 04/24/21 History release pregabalin 200 mg capsule (Lyrica) 200 mg PO BID 02/10/20 04/24/21 History warfarin 5 mg tablet 5 - 10 mg PO DIRECTED 02/10/20 04/24/21 History Saccharomyces boulardii 250 mg 250 mg PO BID #20 cap 09/01/20 04/24/21 Rx capsule (Florastor) multivitamin with minerals-folic 2 tab PO DAILY 09/01/20 04/24/21 History acid 200 mcg chewable tablet (Adult Multivitamin Gummies) docusate sodium 100 mg capsule 100 mg PO BID #60 cap 09/22/20 04/24/21 Rx (Colace) sennosides 8.6 mg tablet (Senokot) 8.6 mg PO HS #30 tab 09/22/20 04/24/21 Rx fluoxetine 40 mg capsule 80 mg PO DAILY 04/24/21 04/24/21 History furosemide 20 mg tablet (Lasix) 20 mg PO BID 04/24/21 04/24/21 History mirtazapine 15 mg tablet (Remeron) 15 mg PO HS 04/24/21 04/24/21 History nitroglycerin 0.2 mg/hr 1 patch TOPICAL DAILY 04/24/21 04/24/21 History transdermal 24 hour patch potassium chloride 10 mEq 10 meq PO DAILY 04/24/21 04/24/21 History tablet,extended release(part/cryst) trazodone 100 mg tablet 100 mg PO HS 04/24/21 04/24/21 History Past Med/Surg History Medical History (Updated 04/24/21 @ 19:06 by Tanika Varner PA-C) Allergic reaction to chemical substance Anxiety Asthma controlled Chronic back pain Deep vein thrombosis LLE (several years ago - control pills)- on warfarin Degenerative disc disease Depression Dysfunctional uterine bleeding GERD (gastroesophageal reflux disease) controlled Insulin resistance metformin BID Migraine on monthly Ajovy injection Morbid obesity Morbid obesity with BMI of 40.0-44.9, adult Osteoarthritis Post traumatic stress disorder Sleep apnea CPAP Symptomatic anemia Surgical History (Updated 04/24/21 @ 19:06 by Tanika Varner PA-C) H/O arthroscopy of left knee H/O arthroscopy of right knee x3 Right knee arthroscopy, chondroplasty (03/17/2020): LMA #4 at [facility] [place] History of arthroscopic knee surgery History of back surgery History of colonoscopy History of dilatation and curettage History of foot surgery S/P epidural steroid injection S/P foot surgery, left S/P lumbar fusion Family History Other Asthma Heart disease Hypertension No family history of adverse response to anesthesia Social History Smoking Status: Former smoker Smoking End Date: 2006; Second Hand Exposure: Yes (as a child); Hx Alcohol Use: Yes Hx Substance Use: No Preferred Language: Indonesian Communication Ability: Effective Mechanical Integrity Specialist Required: No Beliefs That Will Affect Care: None Current Living Situation: Family Current Living Situation Comment: son Feels Safe at Home: Yes Assistive Devices: Contacts, CPAP, Crutches, Denture - Upper, Denture - Lower, Glasses, Hearing Aid - Bilateral and Walker Review of Systems Review of Systems: At least ten systems reviewed and negative except as noted in the HPI. Physical Exam Physical Exam: Please see Dr. Garner's addendum for physical exam. Results & Data Results & Data ([facility]) Vital Signs (Past 12 Hours) Vital Signs Temp Pulse Resp BP Pulse Ox 04/24/21 13:09 36.6 C 83 20 134/76 100 Laboratory Results Short CBC 04/24/21 Range/Units 15:21 WBC 5.79 (4.8-10.8) K/uL Hgb 10.5 L (12.0-16.0) g/dL Hct 33.7 L (37-47) % Plt Count 292 (130-400) K/uL BMP 04/24/21 15:21 Sodium 142 Potassium 3.8 Chloride 106 Carbon Dioxide 28 BUN 9 Creatinine 0.72 Glucose 94 Calcium 9.2 Liver Function 04/24/21 Range/Units 15:21 Total Bilirubin 0.3 (0.2-1.0) mg/dl AST 18 (13-39) U/L ALT 18 (7-52) U/L Alkaline Phosphatase 98 (34-104) U/L Albumin 3.8 (3.4-5.0) gm/dl Diagnostic Findings Chest X-Ray 04/24/21 14:38 SINGLE VIEW CHEST CLINICAL HISTORY: Sepsis. FINDINGS: An AP, portable, upright chest radiograph is compared to study dated 03/12/2007. The heart is top normal for projection noting atherosclerotic calcification of the thoracic aorta. There is mild bibasilar atelectasis and chronic elevation of the right hemidiaphragm. The lungs and pleural spaces are otherwise clear. No pneumothorax is seen. The skeletal structures are osteopenic. The bony thorax is grossly intact. IMPRESSION: No active disease in the chest. ACT 112: Negative or not required by law. Electronically signed by: Romeo Nelson M.D. 04/24/2021 4:01 PM Supervising Physician Co-Signing Physician Notes Pt is a 55 y/o F with hx of RAYMOND, Migraine, hx of DVT on Coumadin, Asthma, GERD, chronic L ankle and foot wound with multiple debridement admitted for worsening foot and toe ulcers with Cellulitis PE: NAD, well developed Lungs: CTA. No wheezing or crackles Cardiac: Normal S1/S2, no murmur Abd: obese abd, soft and NT MSK: b/l LE moderate pitting edema. --L LE: skin erythema with warmth to touch up to the knee, stage 3 ulcer near the medial foot with granulation tissue, 2nd toe plantar surface stage 4 ulcer with granulation tissue and tendon is visible. Psych: AAOx3, normal affect A/P: L Leg and foot cellulitis with stage 3 foot ulcer and stage 4 toe ulcer: -MRI foot did not show osteomyelitis - will change the abx to vanc and cefepime -ortho consult -wound care consult -LE artery duplex pending - wound Cx and BCx collected: will change the abx depending on the result Supratherapeutic INR: -will hold Coumadin tonight Agree with A/P by Tanika Varner PA-C
[2021-04-24 16:36] LABS: Partial Thromboplastin Time 54.7 Seconds (21.0-31.0)
[2021-04-24] MEDS ORDERED: CONSULT PHARMACY STA (17:41)
--- NOTE | 2021-04-24 18:47 | Magnetic Resonance Report ---
MRI OF THE LEFT FOREFOOT WITHOUT IV CONTRAST CLINICAL HISTORY: Foot infection. Clinical concern for osteomyelitis. COMPARISON STUDY: Radiographs of the left foot dated 04/05/2021. MRI of the left foot dated 04/02/2021. TECHNIQUE: MRI of the left forefoot is performed utilizing various T1 and T2-weighted sequences in th e axial, sagittal, and coronal planes. IV contrast was not administered for this examination. The exa mination is severely degraded by motion artifact, as well as by susceptibility artifact from metallic hardware in the medial midfoot. FINDINGS: Marrow signal intensity is heterogeneous. Postoperative change is seen in the midfoot invol ving the medial cuneiform and navicular. Susceptibility artifact from the orthopedic hardware degrade s assessment of these bones. There is no marrow edema identified typical for osteomyelitis. There is no MRI evidence of acute fracture. Degenerative change is seen throughout the midfoot. Soft tissue ed glenis is suggested throughout the forefoot. No organized fluid collection is seen to indicate abscess. The imaged flexor and extensor tendons appear intact. IMPRESSION: 1. The examination is significantly compromised by motion artifact and susceptibility artifact from m etallic hardware. 2. There is no marrow change identified typical for osteomyelitis. 3. Diffuse soft tissue edema in the forefoot suggests cellulitis. Clinical correlation will be requir ed. 4. No organized fluid collection is seen to indicate abscess. Dictated: 04/24/2021 5:53 PM Transcribed: 04/24/2021 6:13 PM Cassie [id number] [facility] Electronically signed by: Romeo Nelson M.D. 04/24/2021 6:45 PM
--- NOTE | 2021-04-24 19:08 | Ultrasound Report ---
ULTRASOUND LEFT LOWER EXTREMITY ARTERIAL CLINICAL HISTORY: Left lower extremity cellulitis and wounds. COMPARISON STUDY: No priors. TECHNIQUE: Real-time grayscale and color Doppler sonography of the left lower extremity arteries is p erformed from the inguinal crease to the foot. Ankle-brachial indices were not obtained. FINDINGS: Atherosclerotic plaque and irregularity is seen throughout the arteries of the left lower e xtremity. There are triphasic waveforms in the common femoral artery with velocities measuring up to 175 cm/s. The profunda femoris artery is patent with velocities measuring up to 135 cm/s. There are t riphasic waveforms throughout the superficial femoral artery with velocities measuring up to 163 cm/s . The popliteal artery is patent with velocities measuring up to 137 cm/s. There is three-vessel runo ff to the foot. Velocities within the calf arteries measure up to 133 cm/s. The dorsalis pedis artery is patent with velocities measuring up to 55 cm/s. Soft tissue edema is noted in the calf. IMPRESSION: There is no sonographic evidence of high-grade stenosis or focal vessel occlusion through out the arteries of the left lower extremity. Dictated: 04/24/2021 6:45 PM Transcribed: 04/24/2021 7:04 PM Cassie [id number] [facility] Electronically signed by: Romeo Nelson M.D. 04/24/2021 7:07 PM
[2021-04-24] MEDS ORDERED: VANCOMYCIN CONSULT ACTIVE PRN (19:56)
[2021-04-24 20:34] LABS: Appearance Urine Clear (Clear); Bilirubin Urine Negative (Negative); Blood Urine Negative (Negative); Color Urine Yellow; Glucose Urine UA Negative (Negative); Ketones Urine Negative (Negative); Leukocyte Esterase Urine Negative (Negative); Nitrite Urine Negative (Negative); Protein Urine Negative (Negative); Specific Gravity Urine 1.016 (1.000-1.030); Urobilinogen Urine Negative (Negative); pH Urine >= 9.0 (4.5-7.5)
[2021-04-24] MEDS ORDERED: ALBUTEROL HFA 8 GM INHALER INH PRN (20:37)
[2021-04-24] MEDS ORDERED: SENNA 8.6 MG TAB PO PRN (20:37)
[2021-04-24] MEDS ORDERED: ONDANSETRON INJ 2 MG/ML 2 ML VIAL IV PRN (20:37)
[2021-04-24] MEDS ORDERED: ACETAMINOPHEN 325 MG TAB PO PRN (20:37)
[2021-04-24] MEDS ORDERED: POLYETHYLENE (MIRALAX) 17 GM PACK PO PRN (20:37)
[2021-04-24] MEDS: CEFEPIME 2,000 MG in SYRINGE 0 ML IV SCH (20:56)
[2021-04-24] MEDS: FUROSEMIDE 20 MG TAB PO SCH (21:29)
[2021-04-24] MEDS ORDERED: oxyCODONE HCL IR 5 MG TAB (IMMEDIATE RELEASE) PO PRN (22:23)
[2021-04-24] MEDS: DOCUSATE SODIUM 100 MG CAP PO SCH (23:37)
[2021-04-24] MEDS: CETIRIZINE HCL 10 MG TABLET PO SCH (23:37)
[2021-04-24] MEDS: MONTELUKAST SODIUM 10 MG TABLET PO SCH (23:38)
[2021-04-24] MEDS: MIRTAZAPINE TAB 15 MG TAB PO SCH (23:38)
[2021-04-24] MEDS: SACCHAROMYCES BOULARDII 250 MG CAP PO SCH (23:39)
[2021-04-24] MEDS: traZODone HCL 100 MG TAB PO SCH (23:40)
[2021-04-24] MEDS: PREGABALIN 100 MG CAP PO SCH (23:41)
[2021-04-25 06:10] LABS: Hematocrit (blood only) 31.1 % (37-47); Hemoglobin 9.6 g/dL (12.0-16.0); Mean Corpuscular Hemoglobin 27.6 pg (25-34); Mean Corpuscular Hgb Conc 30.9 g/dL (32-36); Mean Corpuscular Volume 89.4 fL (80-100); Platelet Count 251 K/uL (130-400); RDW Coefficient of Variation 15.9 % (11.5-14.5); RDW Standard Deviation 51.8 fL (36.4-46.3); Red Blood Count 3.48 M/uL (4.2-5.4); White Blood Count 4.54 K/uL (4.8-10.8)
[2021-04-25 06:19] LABS: INR 2.9 (0.9-1.1)
[2021-04-25 06:31] LABS: BUN Creatinine Ratio 17.6 (10-20); Calcium 8.9 mg/dl (8.5-10.1); Creatinine Clr Calc Pharmacy 131.8 ml/min; Est GFR (African American) 112.5 ml/min; Est GFR (Non-African American) 97.1 ml/min; Potassium 3.9 mmol/L (3.5-5.1)
[2021-04-25 07:32] LABS: Estimated Average Glucose 108 mg/dl; Hemoglobin A1C 5.4 % (4.5-5.6)
[2021-04-25] MEDS ORDERED: [UNRECOGNIZED DRUG - OTHER] PO SCH (09:00)
[2021-04-25] MEDS ORDERED: IRON PO SCH (09:00)
[2021-04-25] MEDS: SACCHAROMYCES BOULARDII 250 MG CAP PO SCH ×2 (09:06→21:24)
[2021-04-25] MEDS: CETIRIZINE HCL 10 MG TABLET PO SCH ×2 (09:06→21:24)
[2021-04-25] MEDS: DOCUSATE SODIUM 100 MG CAP PO SCH ×2 (09:06→21:24)
[2021-04-25] MEDS: FUROSEMIDE 20 MG TAB PO SCH ×2 (09:06→16:53)
[2021-04-25] MEDS: POTASSIUM CHLORIDE 10 MEQ TABCR PO SCH (09:07)
[2021-04-25] MEDS: MAGNESIUM OXIDE 400 MG TAB PO SCH (09:07)
[2021-04-25] MEDS: ASCORBIC ACID 500 MG TAB PO SCH (09:07)
[2021-04-25] MEDS: MULTIVITAMIN CHEWABLE TAB PO SCH (09:07)
[2021-04-25] MEDS: PANTOprazole 40 MG TAB PO SCH (09:08)
[2021-04-25] MEDS: CHOLECALCIFEROL 1,000 UNITS 25 MCG TAB PO SCH (09:08)
[2021-04-25] MEDS: FLUoxetine HCL 20 MG CAP PO SCH (09:08)
[2021-04-25] MEDS: CYANOCOBALAMIN (B-12) 100 MCG TABLET PO SCH (09:10)
[2021-04-25] MEDS: PREGABALIN 100 MG CAP PO SCH ×2 (09:14→21:24)
[2021-04-25] MEDS: CEFEPIME 2,000 MG in SYRINGE 0 ML IV SCH ×2 (09:15→21:24)
--- NOTE | 2021-04-25 11:49 | Electrocardiogram Report ---
Test Reason : Blood Pressure : / mmHG Vent. Rate : 075 BPM Atrial Rate : 075 BPM P-R Int : 178 ms QRS Dur : 088 ms QT Int : 408 ms P-R-T Axes : 036 001 024 degrees QTc Int : 455 ms Normal sinus rhythm Poor R wave progression, consider anterior OK vs. lead placement vs. LVH Abnormal ECG Confirmed by Mario Knight ([id number]) on 04/25/2021 11:49:47 AM Referred By: REFERRED SELF Confirmed By:Que Knight
--- NOTE | 2021-04-25 14:25 | Orthopedic Consultation ---
Date of Consultation April 25, 2021 Assessment & Plan (1) Left leg cellulitis: COntinue Antibiotics. Defer to ID. Present on Admission?: Yes (2) Stage IV pressure ulcer: Continue with wound care per wound clinic. No need for surgical debridement in OR at this time. Present on Admission?: Yes (3) Surgical wound, non healing: Present on Admission?: Yes Recommend consulting vascular and obtaining vascular studies including HAZEL ESR and CBC elevated MRI shows no osteomyelitis at this time or deep tissue abscess Dressing change per wound care team Wound culture growing gram negative bacilli Recommend infectious disease consult and antibiotic recommendations Pain control: per primary DVT prophylaxis: per primary, currently holding coumadin Pt may benefit from debridement and wash out. Will discuss with attending Supervising Physician Co-Signing Physician Notes I, Dr. Lau, spent 30 minutes seeing, examined the patient, reviewing the chart & images, and discussed the management with my PA. I reviewed my PAs note and agree with the documented findings and the plan of care I developed. In addition I would continue with wound care per wound clinic. No need for surgical debridement in OR at this time. Will continue to follow. My PA spent 45 minutes on chart review, evaluating the patient and discussing with the primary team. History of Present Illness Reason for Consultation: LT foot wound Requesting Physician: Dr. Nicolas, Dr. Osvaldo Lau covering History of Present Illness Jewell is a 55 y/o F with hx of RAYMOND, Migraine, hx of DVT on Coumadin, Asthma, GERD, chronic L ankle and foot wound with multiple debridement admitted for worsening foot and toe ulcers with Cellulitis. She was seen and examined today bedside. She is a patient of Dr. Alves's, with [facility]. She had a navicular-medial cuneiform fusion done about a year ago and developed ulcers overlaying her incision shortly afterwards. She has been treated by Dr. Jimmy Hernandez with antibiotics, wound care and debridement with little improvement. Dr. Alves referred her to Vascular at [facility]. She was seen by Dr. Dueñas and his partner Dr. Carroll Israel on 04/17/21. Per their note, they were concerned that the wounds were vascular in nature and recommended US duplex of LLE with plans to obtain HAZEL with PVR and PPG. They also were going to obtain at CT scan of the foot to further evaluate the arthrodesis site for concerns of pseudoarthrosis. They also recommended lab work including CBC, ESR, CRP, HgbA1c and Vitamin D. For her current wounds, it was recommended that she continue with antibiotics and wound care. The patient reports that she started to feel bad on Friday afternoon, 04/20. She says that she was given 3 days worth of Bactrim that she started Friday, 04/21. She was then seen in her wound clinic by the wound nurse on 04/24/21, who noted that she looked sick and her wounds had increased odor, purulent drainage, erythema and warmth. Dr. Dueñas's office was contact and he recommended that she come to the ER. The patient was admitted last night. Wound cultures were taken and she was started of IV Cefepime. MRI of her left foot was done that was obscured due to motion artifact but radiology report read no concern for osteomyelitis or deep abscess. She says that her pain has improved since yesterday and she does feel slightly better. She says that occasionally she will get "pins and needles" in her foot. She says that she has been dealing with this for about a year now and she would like to be able to walk normally again and not be in pain. She does have a cam boot that she wears to assist her with walking. She denies any fevers or chills currently. Allergies Allergy/AdvReac Type Severity Reaction Status Date / Time enoxaparin Allergy Severe Hives Verified 04/24/21 09:23 hydrocortisone Allergy Mild Rash Verified 04/24/21 09:23 Penicillins Allergy Unknown Unknown Verified 04/24/21 09:23 childhood reaction suture AdvReac Intermediate vicryl Verified 04/25/21 15:49 nylon-non healing would Home Medications Medication Instructions Recorded Confirmed Type albuterol sulfate 90 mcg/actuation 1 inh INHALATION Q6H PRN 02/10/20 04/24/21 History breath activated powder inhaler,sensor ascorbic acid (vitamin C) 100 mg 300 mg PO QAM 02/10/20 04/24/21 History chewable tablet azelastine 137 mcg (0.1 %) nasal 1 spray INTRANASAL BID 02/10/20 04/24/21 History spray aerosol cetirizine 10 mg tablet (Zyrtec) 10 mg PO BID 02/10/20 04/24/21 History cholecalciferol (vitamin D3) 50 2,000 unit PO QAM 02/10/20 04/24/21 History mcg (2,000 unit) tablet (Vitamin D3) cyanocobalamin (vitamin B-12) 50 100 mcg PO QAM 02/10/20 04/24/21 History mcg tablet (Vitamin B-12) fremanezumab-vfrm 225 mg/1.5 mL 225 mg SUBCUT MONTHLY 02/10/20 04/24/21 History subcutaneous auto-injector (Ajovy) magnesium oxide 400 mg PO QAM 02/10/20 04/24/21 History metformin 500 mg tablet 500 mg PO BID 02/10/20 04/24/21 History montelukast 10 mg tablet 10 mg PO HS 02/10/20 04/24/21 History (Singulair) multivit,Ca,min-iron gluconat 1 3 tab PO QAM 02/10/20 04/24/21 History mg-FA 66.7 mcg-biotin 1,000 mcg tablet (Hair,Skin and Nails) omeprazole 20 mg tablet,delayed 20 mg PO QAM 02/10/20 04/24/21 History release pregabalin 200 mg capsule (Lyrica) 200 mg PO BID 02/10/20 04/24/21 History warfarin 5 mg tablet 5 - 10 mg PO DIRECTED 02/10/20 04/24/21 History Saccharomyces boulardii 250 mg 250 mg PO BID #20 cap 09/01/20 04/24/21 Rx capsule (Florastor) multivitamin with minerals-folic 2 tab PO DAILY 09/01/20 04/24/21 History acid 200 mcg chewable tablet (Adult Multivitamin Gummies) docusate sodium 100 mg capsule 100 mg PO BID #60 cap 09/22/20 04/24/21 Rx (Colace) sennosides 8.6 mg tablet (Senokot) 8.6 mg PO HS #30 tab 09/22/20 04/24/21 Rx fluoxetine 40 mg capsule 80 mg PO DAILY 04/24/21 04/24/21 History furosemide 20 mg tablet (Lasix) 20 mg PO BID 04/24/21 04/24/21 History mirtazapine 15 mg tablet (Remeron) 15 mg PO HS 04/24/21 04/24/21 History nitroglycerin 0.2 mg/hr 1 patch TOPICAL DAILY 04/24/21 04/24/21 History transdermal 24 hour patch potassium chloride 10 mEq 10 meq PO DAILY 04/24/21 04/24/21 History tablet,extended release(part/cryst) trazodone 100 mg tablet 100 mg PO HS 04/24/21 04/24/21 History Patient History Medical History Allergic reaction to chemical substance Anxiety Asthma controlled Chronic back pain Deep vein thrombosis LLE (several years ago - control pills)- on warfarin Degenerative disc disease Depression Dysfunctional uterine bleeding GERD (gastroesophageal reflux disease) controlled Insulin resistance metformin BID Migraine on monthly Ajovy injection Morbid obesity Morbid obesity with BMI of 40.0-44.9, adult Osteoarthritis Post traumatic stress disorder Sleep apnea CPAP Symptomatic anemia Surgical History H/O arthroscopy of left knee H/O arthroscopy of right knee x3 Right knee arthroscopy, chondroplasty (03/17/2020): [place] [facility] [place] of arthroscopic knee surgery History of back surgery History of colonoscopy History of dilatation and curettage History of foot surgery S/P epidural steroid injection S/P foot surgery, left S/P lumbar fusion Family History Other Asthma Heart disease Hypertension No family history of adverse response to anesthesia Social History Smoking Status: Former smoker Cigarettes Per Day: 1/2 pack a day.; Smoking End Date: 2006; Second Hand Exposure: No; Do You Dip or Chew Tobacco: No; Tobacco Cessation Education Requested by Patient: No Hx Alcohol Use: No Hx Substance Use: No Preferred Language: Estonian Communication Ability: Effective Seismic Prospecting Observer Required: No Beliefs That Will Affect Care: None Current Living Situation: Family and Other Current Living Situation Comment: Lives with Son. Other Information That Helps Us Care for You: No Feels Safe at Home: Yes Safety Concerns: Feels Safe At This Time Assistive Devices: Cane, Glasses and Special Shoe Assistive Devices Comment: Upper partial. Review of Systems Review of Systems: Per HPI Physical Exam Physical Exam: General: Pt is laying in bed. NAD. AA&O. Calm and cooperative Left Lower Extremity: Upon examination of her left foot there is erythema noted tracking upwards to calf. Lines are marked previously around the border. There does note to be some improvement. She has stage 3 ulcer near the medial foot with granulation tissue. Stage 4 ulcer noted on plantar surface of 2nd toe with granulation tissue and tendon visible She has sensation to light touch about all 5 digits. She has limited ROM of ankle and digits due to swelling and pain. Edema noted. Results & Data ([facility]) Vital Signs (Past 12 Hours) Vital Signs Temp Pulse Pulse Resp BP Pulse Ox 04/25/21 07:55 36.5 C 92 H 18 123/81 95 04/25/21 04:00 80 13 96 Diagnostic Findings 04/25/21 04/25/21 04/25/21 Range/Units 12:00 08:06 05:53 WBC (4.8-10.8) K/uL RBC (4.2-5.4) M/uL Hgb (12.0-16.0) g/dL Hct (37-47) % MCV (80-100) fL MCH (25-34) pg MCHC (32-36) g/dL RDW Std Deviation (36.4-46.3) fL RDW Coeff of Bonnie (11.5-14.5) % Plt Count (130-400) K/uL MPV (7.4-10.4) fL Immature Gran % (Auto) % Neut % (Auto) % Lymph % (Auto) % [place] % (Auto) % Eos % (Auto) % Baso % (Auto) % Neut # (Auto) (1.4-6.5) K/uL Lymph # (Auto) (1.2-3.4) K/uL [place] # (Auto) (0.11-0.59) K/uL Eos # (Auto) (0-0.5) K/uL Baso # (Auto) (0-0.2) K/uL Immature Gran # (Auto) (0.00-0.02) K/uL ESR (0-30) mm/hr PT (9.0-12.0) Seconds INR (0.9-1.1) APTT (21.0-31.0) Seconds PTT Ratio Sodium (136-145) mmol/L Potassium (3.5-5.1) mmol/L Chloride (98-107) mmol/L Carbon Dioxide (21-32) mmol/L Anion Gap (3-11) BUN (6-23) mg/dl Creatinine (0.6-1.2) mg/dl Est Cr Clr Drug Dosing ml/min Est GFR ( Amer) ml/min Est GFR (Non-Af Amer) ml/min BUN/Creatinine Ratio (10-20) Glucose (70-99(Fasting)) mg/dl POC Glucose 95 89 (70-99) mg/dl Estimat Average Glucose 108 mg/dl Hemoglobin A1c 5.4 (4.5-5.6) % Lactate (0.4-2.0) mmol/L Calcium (8.5-10.1) mg/dl Magnesium (1.7-2.4) mg/dl Total Bilirubin (0.2-1.0) mg/dl AST (13-39) U/L ALT (7-52) U/L Alkaline Phosphatase (34-104) U/L C-Reactive Protein (0-0.5) mg/dl Total Protein (6.0-8.3) gm/dl Albumin (3.4-5.0) gm/dl Globulin (2.5-4.0) gm/dl Albumin/Globulin Ratio (0.9-2) Urine Color Urine Appearance (Clear) Urine pH (4.5-7.5) Ur Specific [place] (1.000-1.030) Urine Protein (Negative) Urine Glucose (UA) (Negative) Urine Ketones (Negative) Urine Blood (Negative) Urine Nitrite (Negative) Urine Bilirubin (Negative) Urine Urobilinogen (Negative) Ur Leukocyte Esterase (Negative) SARS-CoV-2, RNA, NAAT (NEGATIVE) 04/25/21 04/25/21 04/25/21 Range/Units 05:53 05:53 05:53 WBC 4.54 L (4.8-10.8) K/uL RBC 3.48 L (4.2-5.4) M/uL Hgb 9.6 L (12.0-16.0) g/dL Hct 31.1 L (37-47) % MCV 89.4 (80-100) fL MCH 27.6 (25-34) pg MCHC 30.9 L (32-36) g/dL RDW Std Deviation 51.8 H (36.4-46.3) fL RDW Coeff of Bonnie 15.9 H (11.5-14.5) % Plt Count 251 (130-400) K/uL MPV 10.0 (7.4-10.4) fL Immature Gran % (Auto) % Neut % (Auto) % Lymph % (Auto) % [place] % (Auto) % Eos % (Auto) % Baso % (Auto) % Neut # (Auto) (1.4-6.5) K/uL Lymph # (Auto) (1.2-3.4) K/uL [place] # (Auto) (0.11-0.59) K/uL Eos # (Auto) (0-0.5) K/uL Baso # (Auto) (0-0.2) K/uL Immature Gran # (Auto) (0.00-0.02) K/uL ESR (0-30) mm/hr PT 27.0 H (9.0-12.0) Seconds INR 2.9 H (0.9-1.1) APTT (21.0-31.0) Seconds PTT Ratio Sodium 143 (136-145) mmol/L Potassium 3.9 (3.5-5.1) mmol/L Chloride 109 H (98-107) mmol/L Carbon Dioxide 28 (21-32) mmol/L Anion Gap 6 (3-11) BUN 12 (6-23) mg/dl Creatinine 0.68 (0.6-1.2) mg/dl Est Cr Clr Drug Dosing 131.8 ml/min Est GFR ( Amer) 112.5 ml/min Est GFR (Non-Af Amer) 97.1 ml/min BUN/Creatinine Ratio 17.6 (10-20) Glucose 86 (70-99(Fasting)) mg/dl POC Glucose (70-99) mg/dl Estimat Average Glucose mg/dl Hemoglobin A1c (4.5-5.6) % Lactate (0.4-2.0) mmol/L Calcium 8.9 (8.5-10.1) mg/dl Magnesium (1.7-2.4) mg/dl Total Bilirubin (0.2-1.0) mg/dl AST (13-39) U/L ALT (7-52) U/L Alkaline Phosphatase (34-104) U/L C-Reactive Protein (0-0.5) mg/dl Total Protein (6.0-8.3) gm/dl Albumin (3.4-5.0) gm/dl Globulin (2.5-4.0) gm/dl Albumin/Globulin Ratio (0.9-2) Urine Color Urine Appearance (Clear) Urine pH (4.5-7.5) Ur Specific [place] (1.000-1.030) Urine Protein (Negative) Urine Glucose (UA) (Negative) Urine Ketones (Negative) Urine Blood (Negative) Urine Nitrite (Negative) Urine Bilirubin (Negative) Urine Urobilinogen (Negative) Ur Leukocyte Esterase (Negative) SARS-CoV-2, RNA, NAAT (NEGATIVE) 04/24/21 04/24/21 04/24/21 Range/Units Unknown 20:23 15:21 WBC (4.8-10.8) K/uL RBC (4.2-5.4) M/uL Hgb (12.0-16.0) g/dL Hct (37-47) % MCV (80-100) fL MCH (25-34) pg MCHC (32-36) g/dL RDW Std Deviation (36.4-46.3) fL RDW Coeff of Bonnie (11.5-14.5) % Plt Count (130-400) K/uL MPV (7.4-10.4) fL Immature Gran % (Auto) % Neut % (Auto) % Lymph % (Auto) % [place] % (Auto) % Eos % (Auto) % Baso % (Auto) % Neut # (Auto) (1.4-6.5) K/uL Lymph # (Auto) (1.2-3.4) K/uL [place] # (Auto) (0.11-0.59) K/uL Eos # (Auto) (0-0.5) K/uL Baso # (Auto) (0-0.2) K/uL Immature Gran # (Auto) (0.00-0.02) K/uL ESR 99 H (0-30) mm/hr PT (9.0-12.0) Seconds INR (0.9-1.1) APTT (21.0-31.0) Seconds PTT Ratio Sodium (136-145) mmol/L Potassium (3.5-5.1) mmol/L Chloride (98-107) mmol/L Carbon Dioxide (21-32) mmol/L Anion Gap (3-11) BUN (6-23) mg/dl Creatinine (0.6-1.2) mg/dl Est Cr Clr Drug Dosing ml/min Est GFR ( Amer) ml/min Est GFR (Non-Af Amer) ml/min BUN/Creatinine Ratio (10-20) Glucose (70-99(Fasting)) mg/dl POC Glucose (70-99) mg/dl Estimat Average Glucose mg/dl Hemoglobin A1c (4.5-5.6) % Lactate (0.4-2.0) mmol/L Calcium (8.5-10.1) mg/dl Magnesium (1.7-2.4) mg/dl Total Bilirubin (0.2-1.0) mg/dl AST (13-39) U/L ALT (7-52) U/L Alkaline Phosphatase (34-104) U/L C-Reactive Protein (0-0.5) mg/dl Total Protein (6.0-8.3) gm/dl Albumin (3.4-5.0) gm/dl Globulin (2.5-4.0) gm/dl Albumin/Globulin Ratio (0.9-2) Urine Color Yellow Urine Appearance Clear (Clear) Urine pH >= 9.0 H (4.5-7.5) Ur Specific [place] 1.016 (1.000-1.030) Urine Protein Negative (Negative) Urine Glucose (UA) Negative (Negative) Urine Ketones Negative (Negative) Urine Blood Negative (Negative) Urine Nitrite Negative (Negative) Urine Bilirubin Negative (Negative) Urine Urobilinogen Negative (Negative) Ur Leukocyte Esterase Negative (Negative) SARS-CoV-2, RNA, NAAT NEGATIVE (NEGATIVE) 04/24/21 04/24/21 04/24/21 Range/Units 15:21 15:21 15:21 WBC (4.8-10.8) K/uL RBC (4.2-5.4) M/uL Hgb (12.0-16.0) g/dL Hct (37-47) % MCV (80-100) fL MCH (25-34) pg MCHC (32-36) g/dL RDW Std Deviation (36.4-46.3) fL RDW Coeff of Bonnie (11.5-14.5) % Plt Count (130-400) K/uL MPV (7.4-10.4) fL Immature Gran % (Auto) % Neut % (Auto) % Lymph % (Auto) % [place] % (Auto) % Eos % (Auto) % Baso % (Auto) % Neut # (Auto) (1.4-6.5) K/uL Lymph # (Auto) (1.2-3.4) K/uL [place] # (Auto) (0.11-0.59) K/uL Eos # (Auto) (0-0.5) K/uL Baso # (Auto) (0-0.2) K/uL Immature Gran # (Auto) (0.00-0.02) K/uL ESR (0-30) mm/hr PT 34.8 H (9.0-12.0) Seconds INR 3.8 H (0.9-1.1) APTT 54.7 H* (21.0-31.0) Seconds PTT Ratio 2.1 Sodium 142 (136-145) mmol/L Potassium 3.8 (3.5-5.1) mmol/L Chloride 106 (98-107) mmol/L Carbon Dioxide 28 (21-32) mmol/L Anion Gap 8 (3-11) BUN 9 (6-23) mg/dl Creatinine 0.72 (0.6-1.2) mg/dl Est Cr Clr Drug Dosing 123.9 ml/min Est GFR ( Amer) 107.7 ml/min Est GFR (Non-Af Amer) 93.0 ml/min BUN/Creatinine Ratio 12.5 (10-20) Glucose 94 (70-99(Fasting)) mg/dl POC Glucose (70-99) mg/dl Estimat Average Glucose mg/dl Hemoglobin A1c (4.5-5.6) % Lactate 0.7 (0.4-2.0) mmol/L Calcium 9.2 (8.5-10.1) mg/dl Magnesium 1.7 (1.7-2.4) mg/dl Total Bilirubin 0.3 (0.2-1.0) mg/dl AST 18 (13-39) U/L ALT 18 (7-52) U/L Alkaline Phosphatase 98 (34-104) U/L C-Reactive Protein 6.14 H (0-0.5) mg/dl Total Protein 7.1 (6.0-8.3) gm/dl Albumin 3.8 (3.4-5.0) gm/dl Globulin 3.3 (2.5-4.0) gm/dl Albumin/Globulin Ratio 1.2 (0.9-2) Urine Color Urine Appearance (Clear) Urine pH (4.5-7.5) Ur Specific [place] (1.000-1.030) Urine Protein (Negative) Urine Glucose (UA) (Negative) Urine Ketones (Negative) Urine Blood (Negative) Urine Nitrite (Negative) Urine Bilirubin (Negative) Urine Urobilinogen (Negative) Ur Leukocyte Esterase (Negative) SARS-CoV-2, RNA, NAAT (NEGATIVE) 04/24/21 Range/Units 15:21 WBC 5.79 (4.8-10.8) K/uL RBC 3.72 L (4.2-5.4) M/uL Hgb 10.5 L (12.0-16.0) g/dL Hct 33.7 L (37-47) % MCV 90.6 (80-100) fL MCH 28.2 (25-34) pg MCHC 31.2 L (32-36) g/dL RDW Std Deviation 53.4 H (36.4-46.3) fL RDW Coeff of Bonnie 16.0 H (11.5-14.5) % Plt Count 292 (130-400) K/uL MPV 10.2 (7.4-10.4) fL Immature Gran % (Auto) 0.0 % Neut % (Auto) 65.0 % Lymph % (Auto) 21.2 % [place] % (Auto) 7.1 % Eos % (Auto) 6.2 % Baso % (Auto) 0.5 % Neut # (Auto) 3.76 (1.4-6.5) K/uL Lymph # (Auto) 1.23 (1.2-3.4) K/uL [place] # (Auto) 0.41 (0.11-0.59) K/uL Eos # (Auto) 0.36 (0-0.5) K/uL Baso # (Auto) 0.03 (0-0.2) K/uL Immature Gran # (Auto) 0.00 (0.00-0.02) K/uL ESR (0-30) mm/hr PT (9.0-12.0) Seconds INR (0.9-1.1) APTT (21.0-31.0) Seconds PTT Ratio Sodium (136-145) mmol/L Potassium (3.5-5.1) mmol/L Chloride (98-107) mmol/L Carbon Dioxide (21-32) mmol/L Anion Gap (3-11) BUN (6-23) mg/dl Creatinine (0.6-1.2) mg/dl Est Cr Clr Drug Dosing ml/min Est GFR ( Amer) ml/min Est GFR (Non-Af Amer) ml/min BUN/Creatinine Ratio (10-20) Glucose (70-99(Fasting)) mg/dl POC Glucose (70-99) mg/dl Estimat Average Glucose mg/dl Hemoglobin A1c (4.5-5.6) % Lactate (0.4-2.0) mmol/L Calcium (8.5-10.1) mg/dl Magnesium (1.7-2.4) mg/dl Total Bilirubin (0.2-1.0) mg/dl AST (13-39) U/L ALT (7-52) U/L Alkaline Phosphatase (34-104) U/L C-Reactive Protein (0-0.5) mg/dl Total Protein (6.0-8.3) gm/dl Albumin (3.4-5.0) gm/dl Globulin (2.5-4.0) gm/dl Albumin/Globulin Ratio (0.9-2) Urine Color Urine Appearance (Clear) Urine pH (4.5-7.5) Ur Specific [place] (1.000-1.030) Urine Protein (Negative) Urine Glucose (UA) (Negative) Urine Ketones (Negative) Urine Blood (Negative) Urine Nitrite (Negative) Urine Bilirubin (Negative) Urine Urobilinogen (Negative) Ur Leukocyte Esterase (Negative) SARS-CoV-2, RNA, NAAT (NEGATIVE) Microbiology 04/24/21 19:04 Gram Stain - Final Foot Wound Culture - Preliminary Gram negative bacilli (1) Stage IV pressure ulcer Laterality: left Pressure injury location: toe Qualified Code(s): L89.894 - Pressure ulcer of other site, stage 4 (2) Surgical wound, non healing Encounter type: subsequent encounter Qualified Code(s): T81.89XD - Other complications of procedures, not elsewhere classified, subsequent encounter
--- NOTE | 2021-04-25 14:41 | Hospitalist Progress Note ---
Date of Service April 25, 2021 Assessment & Plan (1) Surgical wound, non healing: (2) Stage IV pressure ulcer: (3) Left leg cellulitis: Plan: This is a 55yo F with a PMH of chronic left lower extremity and foot wounds, migraine, depression, anxiety, history of DVT, asthma, RAYMOND on CPAP who presents from wound care with worsening left lower extremity wounds and cellulitis. LLE wounds were debrided at the wound clinic but due to concern for cellulitis and new stage IV pressure ulcer on L second toe, sent to ED for further evaluation. History of non-healing surgical ankle and foot wounds from previous orthopedic surgery ~ 3 years ago Following with Dr. Alves (podiatry) with [facility] locally and recently established with foot surgeon Dr. Dueñas of [facility] at [place] for this chronic wound On admission - ESR 99, CRP 6 Foot MRI significantly compromised by motion artifact and susceptibility artifact from metallic hardware. No marrow change identified typical for osteomyelitis. Diffuse soft tissue edema in the forefoot suggests cellulitis Initially placed on IV Vanco and cefepime. Preliminary wound cultures growing gram-negative bacilli. Will discontinue IV Vanco today. Continue IV cefepime (day 2). Blood cultures pending Arterial duplex negative for high-grade arterial stenosis Case discussed with Fiorella BREEN with Dr. Dueñas - she recommends obtaining CT scan of the left foot to evaluate for malunion and pseudoarthrosis and ABIs. Given that there was no signs of osteomyelitis on MRI, Dr. Dueñas likely would not be performing any surgical management of the wounds. Recommends that patient continue to follow with local wound care center. Fiorella asked for an update with CT scan results tomorrow. Office number [phone]. Will consult ID for antibiotic recommendations. Consult [facility] ortho, case discussed with Dixie Slater PA-C. Patient may benefit from bedside debridement, awaiting input from attending. (4) Supratherapeutic INR: (5) DVT (deep venous thrombosis): Plan: History of DVT several years ago in the setting of OCPs INR 2.9, resume Coumadin (6) Anxiety: (7) Depression: Plan: Continue fluoxetine, recently started on Mirtazapine, trazodone Follows with Dr. Espinal, psychiatry (8) Sleep apnea: Plan: CPAP HS DVT Ppx: On Coumadin, INR 2.9 Dispo: pending Admission and Anticipated Discharge Date Admission Date: April 24, 2021 Subjective Patient seen and examined. Follow-up for nonhealing left lower extremity wounds. Patient offers no complaints. Reports pain is well controlled. Remains afebrile. No chest pain or shortness of breath. Denies abdominal pain or nausea. Review of Systems Review of Systems: ROS per HPI, all other systems reviewed and negative Physical Exam Constitutional: WD/WN, vitals as above no acute distress Resting in bed Respiratory: normal respiratory effort, lungs clear to auscultation Cardiovascular: Rate/Rhythm: regular rate and regular rhythm Vessels: normal peripheral pulses Extremities: no edema Gastrointestinal (Abdomen): Percussion/Palpation: abdomen soft; abdomen nontender Musculoskeletal: Dressing in place to LLE with boot Skin: no rashes, warm and dry Neurologic: no focal motor deficits Psychiatric: A+Ox3, euthymic affect Results & Data Results & Data ([facility]) Vital Signs (Past 12 Hours) Vital Signs Temp Pulse Pulse Resp BP Pulse Ox 04/25/21 07:55 36.5 C 92 H 18 123/81 95 04/25/21 04:00 80 13 96 Laboratory Results Short CBC 04/24/21 04/25/21 Range/Units 15:21 05:53 WBC 5.79 4.54 L (4.8-10.8) K/uL Hgb 10.5 L 9.6 L (12.0-16.0) g/dL Hct 33.7 L 31.1 L (37-47) % Plt Count 292 251 (130-400) K/uL BMP 04/24/21 04/25/21 15:21 05:53 Sodium 142 143 Potassium 3.8 3.9 Chloride 106 109 H Carbon Dioxide 28 28 BUN 9 12 Creatinine 0.72 0.68 Glucose 94 86 Calcium 9.2 8.9 Liver Function 04/24/21 Range/Units 15:21 Total Bilirubin 0.3 (0.2-1.0) mg/dl AST 18 (13-39) U/L ALT 18 (7-52) U/L Alkaline Phosphatase 98 (34-104) U/L Albumin 3.8 (3.4-5.0) gm/dl Urine 04/24/21 Range/Units 20:23 Urine Color Yellow Urine Appearance Clear (Clear) Urine pH >= 9.0 H (4.5-7.5) Ur Specific [place] 1.016 (1.000-1.030) Urine Protein Negative (Negative) Urine Glucose (UA) Negative (Negative) Diagnostic Findings Chest X-Ray 04/24/21 14:38 SINGLE VIEW CHEST CLINICAL HISTORY: Sepsis. FINDINGS: An AP, portable, upright chest radiograph is compared to study dated 03/12/2007. The heart is top normal for projection noting atherosclerotic calcification of the thoracic aorta. There is mild bibasilar atelectasis and chronic elevation of the right hemidiaphragm. The lungs and pleural spaces are otherwise clear. No pneumothorax is seen. The skeletal structures are osteopenic. The bony thorax is grossly intact. IMPRESSION: No active disease in the chest. ACT 112: Negative or not required by law. Electronically signed by: Romeo Nelson M.D. 04/24/2021 4:01 PM Duplex Scan Lower Extremity Artery 04/24/21 14:38 ULTRASOUND LEFT LOWER EXTREMITY ARTERIAL CLINICAL HISTORY: Left lower extremity cellulitis and wounds. COMPARISON STUDY: No priors. TECHNIQUE: Real-time grayscale and color Doppler sonography of the left lower extremity arteries is performed from the inguinal crease to the foot. Ankle- brachial indices were not obtained. FINDINGS: Atherosclerotic plaque and irregularity is seen throughout the arteries of the left lower extremity. There are triphasic waveforms in the common femoral artery with velocities measuring up to 175 cm/s. The profunda femoris artery is patent with velocities measuring up to 135 cm/s. There are triphasic waveforms throughout the superficial femoral artery with velocities measuring up to 163 cm/s. The popliteal artery is patent with velocities measuring up to 137 cm/s. There is three-vessel runoff to the foot. Velocities within the calf arteries measure up to 133 cm/s. The dorsalis pedis artery is patent with velocities measuring up to 55 cm/s. Soft tissue edema is noted in the calf. IMPRESSION: There is no sonographic evidence of high-grade stenosis or focal vessel occlusion throughout the arteries of the left lower extremity. Dictated: 04/24/2021 6:45 PM Transcribed: 04/24/2021 7:04 PM Cassie [phone] [facility] Electronically signed by: Romeo Nelson M.D. 04/24/2021 7:07 PM Foot MRI 04/24/21 14:55 MRI OF THE LEFT FOREFOOT WITHOUT IV CONTRAST CLINICAL HISTORY: Foot infection. Clinical concern for osteomyelitis. COMPARISON STUDY: Radiographs of the left foot dated 04/05/2021. MRI of the left foot dated 04/02/2021. TECHNIQUE: MRI of the left forefoot is performed utilizing various T1 and T2- weighted sequences in the axial, sagittal, and coronal planes. IV contrast was not administered for this examination. The examination is severely degraded by motion artifact, as well as by susceptibility artifact from metallic hardware in the medial midfoot. FINDINGS: Marrow signal intensity is heterogeneous. Postoperative change is seen in the midfoot involving the medial cuneiform and navicular. Susceptibility artifact from the orthopedic hardware degrades assessment of these bones. There is no marrow edema identified typical for osteomyelitis. There is no MRI evidence of acute fracture. Degenerative change is seen throughout the midfoot. Soft tissue edema is suggested throughout the forefoot. No organized fluid collection is seen to indicate abscess. The imaged flexor and extensor tendons appear intact. IMPRESSION: 1. The examination is significantly compromised by motion artifact and susceptibility artifact from metallic hardware. 2. There is no marrow change identified typical for osteomyelitis. 3. Diffuse soft tissue edema in the forefoot suggests cellulitis. Clinical correlation will be required. 4. No organized fluid collection is seen to indicate abscess. Dictated: 04/24/2021 5:53 PM Transcribed: 04/24/2021 6:13 PM Cassie [id number] [facility] Electronically signed by: Romeo Nelson M.D. 04/24/2021 6:45 PM (1) Stage IV pressure ulcer Laterality: left Pressure injury location: toe Qualified Code(s): L89.894 - Pressure ulcer of other site, stage 4 (2) Surgical wound, non healing Encounter type: subsequent encounter Qualified Code(s): T81.89XD - Other complications of procedures, not elsewhere classified, subsequent encounter
[2021-04-25] MEDS ORDERED: VANCOMYCIN HCL 2,750 MG in SODIUM CHLORIDE 0.9% 500 ML IV SCH (16:00)
[2021-04-25] MEDS: WARFARIN SOD 10 MG TAB PO SCH (17:01)
--- NOTE | 2021-04-25 21:22 | CT Scan Report ---
CT ankle LT wo con, CT foot LT wo con HISTORY: 55 years-old Female eval for malunion chronic pain of the left foot and ankle. COMPARISON: MRI left foot 04/24/2021, left foot radiographs 04/05/2021, MRI left foot and ankle 2. TECHNIQUE: Multiple axial CT images of the left foot and ankle were obtained without the use of IV co ntrast. A dose lowering technique was used consistent with the principals of IGLESIA. FINDINGS: ANKLE: Moderate skin thickening with diffuse subcutaneous edema. Soft tissue wound of the medial midfoot and hindfoot junction and measures up to approximately 4.1 cm. No fluid collection. Tendons and ligament s are better evaluated by MRI. There is thickening of the tibialis anterior suggestive of tendinosis. Arterial calcifications. Demineralized appearance of the bones. There is mild osteoarthritis of the ankle and hindfoot with moderate joint space narrowing of the midfoot. Spurring of the calcaneus. No osteochondral defect. There are 2 cannulated screws within the midfoot traversing the navicular, first and second cuneiform articulations. Both of the screws appear intact. The screw within the first cuneiform and talus exte nds 8 mm distal to the volar cortex, image 165. There is no significant bony fusion. No acute osseous erosions identified. FOOT: Moderate skin thickening with diffuse subcutaneous edema. Soft tissue wound of the medial midfoot an d hindfoot junction. No fluid collection. Arterial calcifications. Demineralized appearance the bones . Ligaments and tendons are better assessed by MRI. No midfoot widening. Moderate joint space of the midfoot with mostly mild forefoot osteoarthritis. Postoperative changes as above. No acute fracture, dislocation or osseous erosion. Mild hallux valgus. IMPRESSION: 1. Large soft tissue wound of the medial hindfoot midfoot junction redemonstrated without abscess or CT evidence of acute osteomyelitis. 2. Cannulated screws are redemonstrated traversing the first and second cuneiform and navicular artic ulations. The hardware appears intact, however there is no significant bony fusion. 3. Moderate joint space narrowing of the midfoot. 4. Diffuse soft tissue edema redemonstrated which may represent cellulitis. No abscess. ACT 112: Negative or not required by law. The above report was generated using voice recognition software. It may contain grammatical, syntax o r spelling errors. Electronically signed by: Carroll Adame M.D. 04/25/2021 9:21 PM
[2021-04-25] MEDS: MIRTAZAPINE TAB 15 MG TAB PO SCH (21:24)
[2021-04-25] MEDS: MONTELUKAST SODIUM 10 MG TABLET PO SCH (21:24)
[2021-04-25] MEDS: traZODone HCL 100 MG TAB PO SCH (21:24)
[2021-04-26 06:10] LABS: Hematocrit (blood only) 31.6 % (37-47); Hemoglobin 9.8 g/dL (12.0-16.0); Mean Corpuscular Hemoglobin 27.7 pg (25-34); Mean Corpuscular Volume 89.3 fL (80-100); Mean Platelet Volume 10.4 fL (7.4-10.4); Platelet Count 255 K/uL (130-400); RDW Coefficient of Variation 15.5 % (11.5-14.5); RDW Standard Deviation 50.3 fL (36.4-46.3); Red Blood Count 3.54 M/uL (4.2-5.4); White Blood Count 3.55 K/uL (4.8-10.8)
[2021-04-26 06:35] LABS: BUN Creatinine Ratio 22.4 (10-20); Calcium 9.1 mg/dl (8.5-10.1); Creatinine Clr Calc Pharmacy 117.9 ml/min; Est GFR (African American) 100.9 ml/min; Est GFR (Non-African American) 87.1 ml/min; Potassium 3.8 mmol/L (3.5-5.1)
[2021-04-26 06:55] LABS: INR 1.6 (0.9-1.1); Prothrombin Time 15.4 Seconds (9.0-12.0)
[2021-04-26] MEDS: CYANOCOBALAMIN (B-12) 100 MCG TABLET PO SCH (08:24)
[2021-04-26] MEDS: ASCORBIC ACID 500 MG TAB PO SCH (08:24)
[2021-04-26] MEDS: CETIRIZINE HCL 10 MG TABLET PO SCH ×2 (08:25→21:26)
[2021-04-26] MEDS: FLUoxetine HCL 20 MG CAP PO SCH (08:25)
[2021-04-26] MEDS: CHOLECALCIFEROL 1,000 UNITS 25 MCG TAB PO SCH (08:25)
[2021-04-26] MEDS: FUROSEMIDE 20 MG TAB PO SCH ×2 (08:25→17:09)
[2021-04-26] MEDS: MAGNESIUM OXIDE 400 MG TAB PO SCH (08:25)
[2021-04-26] MEDS: PANTOprazole 40 MG TAB PO SCH (08:26)
[2021-04-26] MEDS: SACCHAROMYCES BOULARDII 250 MG CAP PO SCH ×2 (08:26→21:26)
[2021-04-26] MEDS: MULTIVITAMIN CHEWABLE TAB PO SCH (08:26)
[2021-04-26] MEDS: CEFEPIME 2,000 MG in SYRINGE 0 ML IV SCH ×2 (08:29→21:26)
[2021-04-26] MEDS: POTASSIUM CHLORIDE 10 MEQ TABCR PO SCH (08:29)
[2021-04-26] MEDS: PREGABALIN 100 MG CAP PO SCH ×2 (08:29→21:25)
[2021-04-26] MEDS: DOCUSATE SODIUM 100 MG CAP PO SCH ×2 (08:29→21:44)
--- NOTE | 2021-04-26 09:03 | Ultrasound Report ---
ULTRASOUND ANKLE-BRACHIAL INDICES CLINICAL HISTORY: Nonhealing wounds. COMPARISON STUDY: Left lower extremity arterial ultrasound dated 04/24/2021. FINDINGS: Ankle-brachial indices were assessed on ultrasound. Right brachial pressure measures 123 an d left brachial pressure measures 119. Pressures in the right dorsalis pedis measure 153 for an HAZEL o f 1.24, and pressures in the right posterior tibial artery measure 162 for an HAZEL of 1.32. Pressures in the left dorsalis pedis measure 140 for an HAEZL of 1.14, and pressures in the left posterior tibial artery measure 156 for an HAZEL of 1.27. IMPRESSION: Ankle-brachial indices as above. Dictated: 04/26/2021 7:18 AM Transcribed: 04/26/2021 8:44 AM [place] [id number] [facility] Electronically signed by: Romeo Nelson M.D. 04/26/2021 9:02 AM
[2021-04-26] MEDS: WARFARIN SOD 10 MG TAB PO SCH (16:05)
--- NOTE | 2021-04-26 16:54 | Hospitalist Progress Note ---
Date of Service April 26, 2021 Assessment & Plan (1) Surgical wound, non healing: (2) Stage IV pressure ulcer: (3) Left leg cellulitis: Plan: This is a 55yo F with a PMH of chronic left lower extremity and foot wounds, migraine, depression, anxiety, history of DVT, asthma, RAYMOND on CPAP who presents from wound care with worsening left lower extremity wounds and cellulitis. LLE wounds were debrided at the wound clinic but due to concern for cellulitis and new stage IV pressure ulcer on L second toe, sent to ED for further evaluation. History of non-healing surgical ankle and foot wounds from previous orthopedic surgery ~ 3 years ago Following with Dr. Alves (podiatry) with [facility] locally and recently established with foot surgeon Dr. Dueñas of [facility] at [facility] for this chronic wound On admission - ESR 99, CRP 6 Foot MRI significantly compromised by motion artifact and susceptibility artifact from metallic hardware. No marrow change identified typical for osteomyelitis. Diffuse soft tissue edema in the forefoot suggests cellulitis Initially placed on IV Vanco and cefepime. Wound cultures growing E coli. Vanco discontinued yesterday. Continue IV cefepime (day 3) Blood cultures without growth to date Arterial duplex negative for high-grade arterial stenosis Case discussed with [facility] GEGE Barros, who works with Dr. Dueñas - recommends obtaining CT scan of the left foot to evaluate for malunion and pse udoarthrosis and ABIs Given that there was no signs of osteomyelitis on MRI, Dr. Dueñas likely would not be performing any surgical management of the wounds. Recommends that patient continue to follow with local wound care center Attempted to update [facility] with CT scan results but unable to reach. Will try again in AM (office number [phone]) ID recommendations - Cefepime 7 days total. Could transition to PO regimen of Linezolid and Levaquin but not a good candidate due to Linezolid-associated serotonin syndrome * will discuss possible midline placement for continued Cefepime tomorrow (4) Supratherapeutic INR: (5) DVT (deep venous thrombosis): Plan: History of DVT several years ago in the setting of OCPs INR 1.6, continue Coumadin (6) Anxiety: (7) Depression: Plan: Continue fluoxetine, recently started on Mirtazapine, trazodone Follows with Dr. Espinal, psychiatry (8) Sleep apnea: Plan: CPAP HS DVT Ppx: Continue Dispo: pending Admission and Anticipated Discharge Date Admission Date: April 24, 2021 Subjective Patient seen and examined in 309 for follow-up for nonhealing left lower extremity wounds. Patient offers no complaints. Reports pain is well controlled. Remains afebrile. No CP, SOB, N/V, abdominal pain, dysuria, diarrhea or constipation. Review of Systems Review of Systems: At least ten systems reviewed and negative except as noted in the HPI. Physical Exam Physical Exam: Gen: WD/WN, NAD, sitting in bedside chair, obese, A&Ox3 HEENT: Normocephalic, atraumatic, conjunctivae moist, sclerae anicteric, mucous membranes moist Lung: Clear to Auscultation bilaterally, no wheezes/rales/rhonchi Heart: Regular rate, regular rhythm, no murmurs, rubs, or gallops Abdomen: Soft, NT, ND +BS x 4 Extremities: LLE with cam boot, trace edema Skin: Warm, no rash Results & Data Results & Data ([facility]) Vital Signs (Past 12 Hours) Vital Signs Temp Pulse Pulse Resp BP BP Pulse Ox 04/26/21 16:00 36.3 C L 68 18 119/83 96 04/26/21 08:09 36.4 C L 71 18 138/84 95 Laboratory Results Short CBC 04/26/21 Range/Units 05:34 WBC 3.55 L (4.8-10.8) K/uL Hgb 9.8 L (12.0-16.0) g/dL Hct 31.6 L (37-47) % Plt Count 255 (130-400) K/uL [facility] 04/26/21 05:34 Sodium 142 Potassium 3.8 Chloride 105 Carbon Dioxide 32 BUN 17 Creatinine 0.76 Glucose 92 Calcium 9.1 Diagnostic Findings Chest X-Ray 04/24/21 14:38 SINGLE VIEW CHEST CLINICAL HISTORY: Sepsis. FINDINGS: An AP, portable, upright chest radiograph is compared to study dated 03/12/2007. The heart is top normal for projection noting atherosclerotic calcification of the thoracic aorta. There is mild bibasilar atelectasis and chronic elevation of the right hemidiaphragm. The lungs and pleural spaces are otherwise clear. No pneumothorax is seen. The skeletal structures are osteopenic. The bony thorax is grossly intact. IMPRESSION: No active disease in the chest. ACT 112: Negative or not required by law. Electronically signed by: Romeo Nelson M.D. 04/24/2021 4:01 PM Duplex Scan Lower Extremity Artery 04/24/21 14:38 ULTRASOUND LEFT LOWER EXTREMITY ARTERIAL CLINICAL HISTORY: Left lower extremity cellulitis and wounds. COMPARISON STUDY: No priors. TECHNIQUE: Real-time grayscale and color Doppler sonography of the left lower extremity arteries is performed from the inguinal crease to the foot. Ankle- brachial indices were not obtained. FINDINGS: Atherosclerotic plaque and irregularity is seen throughout the arteries of the left lower extremity. There are triphasic waveforms in the common femoral artery with velocities measuring up to 175 cm/s. The profunda femoris artery is patent with velocities measuring up to 135 cm/s. There are triphasic waveforms throughout the superficial femoral artery with velocities measuring up to 163 cm/s. The popliteal artery is patent with velocities measuring up to 137 cm/s. There is three-vessel runoff to the foot. Velocities within the calf arteries measure up to 133 cm/s. The dorsalis pedis artery is patent with velocities measuring up to 55 cm/s. Soft tissue edema is noted in the calf. IMPRESSION: There is no sonographic evidence of high-grade stenosis or focal vessel occlusion throughout the arteries of the left lower extremity. Dictated: 04/24/2021 6:45 PM Transcribed: 04/24/2021 7:04 PM Cassie [id number] [facility]_ary Electronically signed by: Romeo Nelson M.D. 04/24/2021 7:07 PM Foot MRI 04/24/21 14:55 MRI OF THE LEFT FOREFOOT WITHOUT IV CONTRAST CLINICAL HISTORY: Foot infection. Clinical concern for osteomyelitis. COMPARISON STUDY: Radiographs of the left foot dated 04/05/2021. MRI of the left f oot dated 04/02/2021. TECHNIQUE: MRI of the left forefoot is performed utilizing various T1 and T2- weighted sequences in the axial, sagittal, and coronal planes. IV contrast was not administered for this examination. The examination is severely degraded by motion artifact, as well as by susceptibility artifact from metallic hardware in the medial midfoot. FINDINGS: Marrow signal intensity is heterogeneous. Postoperative change is seen in the midfoot involving the medial cuneiform and navicular. Susceptibility artifact from the orthopedic hardware degrades assessment of these bones. There is no marrow edema identified typical for osteomyelitis. There is no MRI evidence of acute fracture. Degenerative change is seen throughout the midfoot. Soft tissue edema is suggested throughout the forefoot. No organized fluid collection is seen to indicate abscess. The imaged flexor and extensor tendons appear intact. IMPRESSION: 1. The examination is significantly compromised by motion artifact and susceptibility artifact from metallic hardware. 2. There is no marrow change identified typical for osteomyelitis. 3. Diffuse soft tissue edema in the forefoot suggests cellulitis. Clinical correlation will be required. 4. No organized fluid collection is seen to indicate abscess. Dictated: 04/24/2021 5:53 PM Transcribed: 04/24/2021 6:13 PM Cassie [id number] [facility] Electronically signed by: Romeo Nelson M.D. 04/24/2021 6:45 PM Ankle Brachial Index 04/25/21 16:37 ULTRASOUND ANKLE-BRACHIAL INDICES CLINICAL HISTORY: Nonhealing wounds. COMPARISON STUDY: Left lower extremity arterial ultrasound dated 04/24/2021. FINDINGS: Ankle-brachial indices were assessed on ultrasound. Right brachial pressure measures 123 and left brachial pressure measures 119. Pressures in the right dorsalis pedis measure 153 for an HAZEL of 1.24, and pressures in the right posterior tibial artery measure 162 for an HAZEL of 1.32. Pressures in the left dorsalis pedis measure 140 for an HAZEL of 1.14, and pressures in the left posterior tibial artery measure 156 for an HAZEL of 1.27. IMPRESSION: Ankle-brachial indices as above. Dictated: 04/26/2021 7:18 AM Transcribed: 04/26/2021 8:44 AM [place] [id number] [facility] Electronically signed by: Romeo Nelson M.D. 04/26/2021 9:[address] 04/25/21 16:37 CT ankle LT wo con, CT foot LT wo con HISTORY: 55 years-old Female eval for malunion chronic pain of the left foot and ankle. COMPARISON: MRI left foot 04/24/2021, left foot radiographs 04/05/2021, MRI left fo ot and ankle 04/02/2021. TECHNIQUE: Multiple axial CT images of the left foot and ankle were obtained without the use of IV contrast. A dose lowering technique was used consistent with the principals of IGLESIA. FINDINGS: ANKLE: Moderate skin thickening with diffuse subcutaneous edema. Soft tissue wound of the medial midfoot and hindfoot junction and measures up to approximately 4.1 cm. No fluid collection. Tendons and ligaments are better evaluated by MRI. There is thickening of the tibialis anterior suggestive of tendinosis. Arterial calcifications. Demineralized appearance of the bones. There is mild osteoarthritis of the ankle and hindfoot with moderate joint space narrowing of the midfoot. Spurring of the calcaneus. No osteochondral defect. There are 2 cannulated screws within the midfoot traversing the navicular, first and second cuneiform articulations. Both of the screws appear intact. The screw within the first cuneiform and talus extends 8 mm distal to the volar cortex, image 165. There is no significant bony fusion. No acute osseous erosions identified. FOOT: Moderate skin thickening with diffuse subcutaneous edema. Soft tissue wound of the medial midfoot and hindfoot junction. No fluid collection. Arterial calcifications. Demineralized appearance the bones. Ligaments and tendons are better assessed by MRI. No midfoot widening. Moderate joint space of the midfoot with mostly mild forefoot osteoarthritis. Postoperative changes as above. No acute fracture, dislocation or osseous erosion. Mild hallux valgus. IMPRESSION: 1. Large soft tissue wound of the medial hindfoot midfoot junction redemonstrated without abscess or CT evidence of acute osteomyelitis. 2. Cannulated screws are redemonstrated traversing the first and second cuneiform and navicular articulations. The hardware appears intact, however there is no significant bony fusion. 3. Moderate joint space narrowing of the midfoot. 4. Diffuse soft tissue edema redemonstrated which may represent cellulitis. No abscess. ACT 112: Negative or not required by law. The above report was generated using voice recognition software. It may contain grammatical, syntax or spelling errors. Electronically signed by: Carroll Adame M.D. 04/25/2021 9:[address] 04/25/21 16:42 CT ankle LT wo con, CT foot LT wo con HISTORY: 55 years-old Female eval for malunion chronic pain of the left foot and ankle. COMPARISON: MRI left foot 04/24/2021, left foot radiographs 04/05/2021, MRI left foot and ankle 04/02/2021. TECHNIQUE: Multiple axial CT images of the left foot and ankle were obtained without the use of IV contrast. A dose lowering technique was used consistent with the principals of IGLESIA. FINDINGS: ANKLE: Moderate skin thickening with diffuse subcutaneous edema. Soft tissue wound of the medial midfoot and hindfoot junction and measures up to approximately 4.1 cm. No fluid collection. Tendons and ligaments are better evaluated by MRI. There is thickening of the tibialis anterior suggestive of tendinosis. Arterial calcifications. Demineralized appearance of the bones. There is mild osteoarthritis of the ankle and hindfoot with moderate joint space narrowing of the midfoot. Spurring of the calcaneus. No osteochondral defect. There are 2 cannulated screws within the midfoot traversing the navicular, first and second cuneiform articulations. Both of the screws appear intact. The screw within the first cuneiform and talus extends 8 mm distal to the volar cortex, image 165. There is no significant bony fusion. No acute osseous erosions identified. FOOT: Moderate skin thickening with diffuse subcutaneous edema. Soft tissue wound of the medial midfoot and hindfoot junction. No fluid collection. Arterial calc ifications. Demineralized appearance the bones. Ligaments and tendons are better assessed by MRI. No midfoot widening. Moderate joint space of the midfoot with mostly mild forefoot osteoarthritis. Postoperative changes as above. No acute fracture, dislocation or osseous erosion. Mild hallux valgus. IMPRESSION: 1. Large soft tissue wound of the medial hindfoot midfoot junction redemonstrated without abscess or CT evidence of acute osteomyelitis. 2. Cannulated screws are redemonstrated traversing the first and second cuneiform and navicular articulations. The hardware appears intact, however there is no significant bony fusion. 3. Moderate joint space narrowing of the midfoot. 4. Diffuse soft tissue edema redemonstrated which may represent cellulitis. No abscess. ACT 112: Negative or not required by law. The above report was generated using voice recognition software. It may contain grammatical, syntax or spelling errors. Electronically signed by: Carroll Adame M.D. 04/25/2021 9:21 PM (1) Stage IV pressure ulcer Laterality: left Pressure injury location: toe Qualified Code(s): L89.894 - Pressure ulcer of other site, stage 4 (2) Surgical wound, non healing Encounter type: subsequent encounter Qualified Code(s): T81.89XD - Other complications of procedures, not elsewhere classified, subsequent encounter
--- NOTE | 2021-04-26 17:46 | Orthopedic Progress Note ---
Date of Service April 26, 2021 Assessment & Plan (1) Left leg cellulitis: Plan: Patient was seen in her room. Findings were discussed with her. She is improving on the IV antibiotics. Pain, warmth, and redness are all improving. Findings will be relayed to Dr. Lau. She may continue ambulating with her cam boot. I did speak with hospitalist service regarding possible vascular consult. They will speak with her orthopedist at [facility] to discuss her future plan. Continue with the IV antibiotics, tailored by infectious disease. We will continue to follow while she is in-house. She does not require any surgical intervention at this point, though it may be necessary in the future. Present on Admission?: Yes Admission and Anticipated Discharge Date Admission Date: April 24, 2021 Supervising Physician Co-Signing Physician Notes I, Dr. Lau, saw and examined the patient, reviewing the chart & images, and discussed the management with my PA. I reviewed my PAs note and agree with the documented findings and the plan of care I developed. Continue with wound care per wound clinic. No need for surgical debridement in OR at this time. Will continue to follow. Subjective Patient was seen in her room this morning. She states she has no pain at this point. She has been using her cam boot when ambulating. She has been out of bed to go to the bathroom. She denies any fevers or chills. She thinks the antibiotics are working well. Review of Systems Review of Systems: All systems reviewed & are unremarkable except as noted in HPI & below Physical Exam Physical Exam: Patient has her cam boot in place. Upon removal, underlying dressings are dry. They were partially taken down for examination. She does have silver adherent dressings in place over the ulcerations. Lower leg is st ill erythemic, but has receded from the previous line of demarcation. Her leg remains slightly warm, but is improved since yesterday. Mild edema at this point. Neurologic: She has intact sensation across the lower leg by soft touch. Skin is not tender to palpation across the cellulitic area. Results & Data ([facility]) Vital Signs (Past 12 Hours) Vital Signs Temp Pulse Pulse Resp BP BP Pulse Ox 04/26/21 16:00 36.3 C L 68 18 119/83 96 04/26/21 08:09 36.4 C L 71 18 138/84 95 Laboratory Results CBC obtained this morning shows a white count of 3.55. H&H of 9.8 and 31.6. INR is 1.6. PT 15.4. PRP is unremarkable. Spec: [id number] Collected: 04/24/21 Received: 04/24/[address]: Tanika Varner PA-C Copy To: Mario Garner MD Source: Foot OV Order: Ordered: Surf Wnd Cul/Sm Procedure Result Verified Site Gram Stain Final 04/24/21 Gram Stain Result Few WBCs Seen No Organisms Seen Surface Wound Culture Final 04/26/21 Organism 1 Escherichia coli Quantity Moderate Sens Sensitivities to Follow E coli RX M.I.C. --- --------- Amox/Clav S <=8/4 Ampicillin R >16 Amp/Sul I 16/8 Cefazolin S <=2 Cefepime S <=2 Ceftriaxone S <=1 Ciprofloxacin I 0.5 Ertapenem S <=0.5 Gentamicin S <=4 Levofloxacin S <=0.5 Meropenem S <=1 Tobramycin S <=4 Trimeth/Sulfa R >2/38 Pip/Tazo S <=16 S = SENSITIVE I = INTERMEDIATE R = RESISTANT Procedure/Result Aerobic Blood Culture - Preliminary No growth in Aerobic bottle after 48 hours. Anaerobic Blood Culture - Preliminary No growth in Anaerobic bottle after [address] ankle LT wo con, CT foot LT wo con HISTORY: 55 years-old Female eval for malunion chronic pain of the left foot and ankle. COMPARISON: MRI left foot 04/24/2021, left foot radiographs 04/05/2021, MRI left foot and ankle 04/02/2021. TECHNIQUE: Multiple axial CT images of the left foot and ankle were obtained without the use of IV contrast. A dose lowering technique was used consistent with the principals of ALARA. FINDINGS: ANKLE: Moderate skin thickening with diffuse subcutaneous edema. Soft tissue wound of the medial midfoot and hindfoot junction and measures up to approximately 4.1 cm. No fluid collection. Tendons and ligaments are better evaluated by MRI. There is thickening of the tibialis anterior suggestive of tendinosis. Arterial calcifications. Demineralized appearance of the bones. There is mild osteoarthritis of the ankle and hindfoot with moderate joint space narrowing of the midfoot. Spurring of the calcaneus. No osteochondral defect. There are 2 cannulated screws within the midfoot traversing the navicular, first and second cuneiform articulations. Both of the screws appear intact. The screw within the first cuneiform and talus extends 8 mm distal to the volar cortex, image 165. There is no significant bony fusion. No acute osseous erosions identified. FOOT: Moderate skin thickening with diffuse subcutaneous edema. Soft tissue wound of the medial midfoot and hindfoot junction. No fluid collection. Arterial calcifications. Demineralized appearance the bones. Ligaments and tendons are better assessed by MRI. No midfoot widening. Moderate joint space of the midfoot with mostly mild forefoot osteoarthritis. Postoperative changes as above. No acute fracture, dislocation or osseous erosion. Mild hallux valgus. IMPRESSION: 1. Large soft tissue wound of the medial hindfoot midfoot junction re- demonstrated without abscess or CT evidence of acute osteomyelitis. 2. Cannulated screws are re-demonstrated traversing the first and second cuneiform and navicular articulations. The hardware appears intact, however there is no significant bony fusion. 3. Moderate joint space narrowing of the midfoot. 4. Diffuse soft tissue edema redemonstrated which may represent cellulitis. No abscess.
[2021-04-26] MEDS: traZODone HCL 100 MG TAB PO SCH (21:26)
[2021-04-26] MEDS: MONTELUKAST SODIUM 10 MG TABLET PO SCH (21:26)
[2021-04-26] MEDS: MIRTAZAPINE TAB 15 MG TAB PO SCH (21:26)
[2021-04-27] MEDS: SACCHAROMYCES BOULARDII 250 MG CAP PO SCH (08:40)
[2021-04-27] MEDS: POTASSIUM CHLORIDE 10 MEQ TABCR PO SCH (08:40)
[2021-04-27] MEDS: DOCUSATE SODIUM 100 MG CAP PO SCH (08:40)
[2021-04-27] MEDS: CETIRIZINE HCL 10 MG TABLET PO SCH (08:40)
[2021-04-27] MEDS: PREGABALIN 100 MG CAP PO SCH (08:40)
[2021-04-27] MEDS: MULTIVITAMIN CHEWABLE TAB PO SCH (08:41)
[2021-04-27] MEDS: MAGNESIUM OXIDE 400 MG TAB PO SCH (08:41)
[2021-04-27] MEDS: CYANOCOBALAMIN (B-12) 100 MCG TABLET PO SCH (08:41)
[2021-04-27] MEDS: CHOLECALCIFEROL 1,000 UNITS 25 MCG TAB PO SCH (08:41)
[2021-04-27] MEDS: PANTOprazole 40 MG TAB PO SCH (08:41)
[2021-04-27] MEDS: ASCORBIC ACID 500 MG TAB PO SCH (08:41)
[2021-04-27] MEDS: FLUoxetine HCL 20 MG CAP PO SCH (08:42)
[2021-04-27] MEDS: FUROSEMIDE 20 MG TAB PO SCH (08:42)
[2021-04-27] MEDS ORDERED: CEFDINIR 300 MG CAP PO SCH (09:00)
[2021-04-27] MEDS ORDERED: levoFLOXacin 500 MG TAB PO SCH (11:00)
--- NOTE | 2021-04-27 14:31 | Discharge Summary ---
Date of Service April 27, 2021 Admission HPI Per Admitting Provider This is a 55yo F with a PMH of chronic left lower extremity and foot wounds, migraine, depression, anxiety, history of LLE DVT, asthma, RAYMOND on CPAP who presents from wound care with worsening left lower extremity wounds. Has history of non-healing surgical ankle and foot wounds from previous orthopedic surgery. LLE wounds were debrided today but due to concern for cellulitis and new stage IV pressure ulcer on L second toe, sent to ED for further evaluation. Has been offloading and wearing cam boot. Following with Dr. Dueñas of [facility] for this chronic wound and was due for CT scan and arterial duplex studies in [place] tomorrow. Of note, wound culture from previous visit was negative. Endorsing increased pain and drainage of L foot wounds as well as nausea. Has felt more fatigued over past 2 days. Changes own wound drainage. Denies fever, chills, lightheadedness, CP, SOB, vomiting, abdominal pain, dysuria, diarrhea or constipation. Admission Exam Per Admitting Provider NAD, well developed Lungs: CTA. No wheezing or crackles Cardiac: Normal S1/S2, no murmur Abd: obese abd, soft and NT MSK: b/l LE moderate pitting edema. LLE: skin erythema with warmth to touch up to the knee, stage 3 ulcer near the medial foot with granulation tissue, 2ndtoe plantar surface stage 4 ulcer with granulation tissue and tendon is visible. Psych: AAOx3, normal affect Principal Diagnosis LLE WOUNDS, CELLULITIS Discharge Exam Gen: WD/WN, NAD, sitting in bedside chair, obese, A&Ox3 HEENT: Normocephalic, atraumatic, conjunctivae moist, sclerae anicteric, mucous membranes moist Lung: Clear to Auscultation bilaterally, no wheezes/rales/rhonchi Heart: Regular rate, regular rhythm, no murmurs, rubs, or gallops Abdomen: Soft, NT, ND +BS x 4 Extremities: LLE with cam boot, trace edema Skin: Warm, no rash Discharge Data Allergies Allergy/AdvReac Type Severity Reaction Status Date / Time enoxaparin Allergy Severe Hives Verified 04/24/21 09:23 hydrocortisone Allergy Mild Rash Verified 04/24/21 09:23 Penicillins Allergy Unknown Unknown Verified 04/24/21 09:23 childhood reaction suture AdvReac Intermediate vicryl Verified 04/25/21 15:49 nylon-non healing would Consultations 04/24/21 16:32 ED Decision to Admit Stat 04/24/21 17:41 Consult Orthopedic Surgery Routine 04/25/21 16:49 Consult Infectious Diseases Routine Ordered Studies 04/24/21 14:38 US arterial duplex LE LT Stat 04/24/21 14:55 MR foot LT w/o con Stat 04/25/21 16:37 CT foot LT wo con Routine US ankle/brachial index ltd Routine 04/25/21 16:42 CT ankle LT wo con Routine Hospital Course (1) Surgical wound, non healing: (2) Stage IV pressure ulcer: (3) Left leg cellulitis: (4) Supratherapeutic INR: (5) DVT (deep venous thrombosis): (6) Anxiety: (7) Depression: (8) Sleep apnea: This is a 55yo F with a PMH of chronic left lower extremity and foot wounds, migraine, depression, anxiety, history of DVT, asthma, RAYMOND on CPAP who presents from wound care with worsening left lower extremity wounds and cellulitis. LLE wounds were debrided at the wound clinic but due to concern for cellulitis and new stage IV pressure ulcer on L second toe, sent to ED for further evaluation. History of non-healing surgical ankle and foot wounds from previous orthopedic surgery approximately 3 years ago[address] Following with Dr. Alves (podiatry) with [facility] locally and recently established with foot surgeon Dr. Dueñas of [facility] at [place] for this chronic wound. Foot MRI significantly compromised by motion artifact and susceptibility artifact from metallic hardware. No marrow change identified typical for osteomyelitis. Diffuse soft tissue edema in the forefoot suggests cellulitis. Initially placed on IV Vanco and cefepime. Wound cultures growing E coli. Continue IV cefepime until transitioned to PO Cefdinir and Levaquin for remainder of 7 day course for soft tissue infection per ID. Blood cultures without growth to date. Arterial duplex negative for high-grade arterial stenosis. Discussed case and CT lower extremity findings with Dr. Dueñas's team. Will push images to them. Follow up with wound care next week and Dr. Dueñas in [place] in June. Patient without pain and hemodynamically stable at time of discharge. Total Time Total Time Spent Total Time Spent (In Minutes): 45 Discharge Plan Discharge Items Patient Disposition: Home - Self-Care Reason For Visit: LLE WOUNDS, CELLULITIS Discharge Diagnosis: LLE WOUNDS, CELLULITIS Activity: Resume your previous activity Non-emergency contact: Primary Care Provider Call non-emergency contact if: you have any medication questions, your symptoms worsen and your pain is concerning for you Follow-up/Referrals: Rama Reed MD [Primary Care Provider] - (Date & Time 05/01/2021 11:20 AM Provider Amarjit Hughes MD [facility] ) Diet: Carb Consistent or DM2 Addtl Attending Provider Instructions: You were admitted for cellulitis and non-healing left lower extremity wounds. No evidence of osteomyelitis (bone infection) on MRI and lower extremity CT. Hardware appears intact Discussed imagining findings with Dr. Dueñas's team at [facility] - will forward CT results to their office Arterial duplex negative for high-grade arterial stenosis Wound cultures growing E. coli. Per infectious disease, will transition from IV Cefepime to Cefdinir and Levaquin for completion of 7 day course for soft tissue infection MEDICATION CHANGES: Continue Cefdinir and Levaquin (antibiotics) for completion of 7 day course RECOMMENDATIONS FOR FOLLOW-UP: Hospital follow up with Dr. Hughes 05/01/2021 at 11:20 AM Wound care appointment this coming 05/01/[address] Dueñas in [place] scheduled for June 12 at 2:30pm OTHER INSTRUCTIONS: Seek medical attention if you have: * temperature above 101 * chest pain or trouble breathing * abdominal pain, nausea, vomiting * diarrhea, dark stools or bloody stools * any unanswered questions or concerns Call 911 if symptoms are severe. Please take good care of yourself. Call if you have any questions or problems. You can reach a [facility] hospitalist on duty at [facility] [address] 24 hours a day by calling [phone]. Tanika Varner PA-C [facility] Hospitalist [facility] Provider Instructions: Follow up with Dr. Dueñas in [place] upon discharge Continue wound care and antibiotics per infectious disease Weight bearing as tolerated in Cam boot DVT prophylaxis per primary Pain control per primary Pending Studies at Discharge: No Stand-Alone Forms: My [facility], Smoking Cessation Medications and DC Order Prescriptions: New cefdinir 300 mg Capsule 300 mg PO BID Qty: 8 RF: 0 levofloxacin 500 mg Tablet 500 mg PO DAILY@1100 Qty: 4 RF: 0 docusate sodium 100 mg Capsule 100 mg PO BID Qty: 30 RF: 0 Continued metformin 500 mg Tablet 500 mg PO BID RF: 0 cetirizine [Zyrtec] 10 mg Tablet 10 mg PO BID RF: 0 Vitamin B-12 50 mcg Tablet 100 mcg PO QAM RF: 0 montelukast [Singulair] 10 mg Tablet 10 mg PO HS RF: 0 ascorbic acid (vitamin C) 100 mg Tablet,Chewable 300 mg PO QAM RF: 0 pregabalin [Lyrica] 200 mg Capsule 200 mg PO BID RF: 0 cholecalciferol (vitamin D3) [Vitamin D3] 50 mcg (2,000 unit) Tablet 2,000 unit PO QAM RF: 0 Hair,Skin and Nails 1 mg iron-66.7 mcg-1,000 mcg Tablet 3 tab PO QAM RF: 0 magnesium oxide 400 mg magnesium Tablet 400 mg PO QAM RF: 0 azelastine 137 mcg (0.1 %) Aerosol,[place] 1 spray INTRANASAL BID RF: 0 albuterol sulfate 90 mcg/actuation Aero Powdr Breath Act W/Sensor 1 inh INHALATION Q6H PRN (Reason: Shortness Of Breath) RF: 0 warfarin 5 mg Tablet 5 - 10 mg PO DIRECTED RF: 0 omeprazole 20 mg Tablet,Delayed Release (Dr/Ec) 20 mg PO QAM RF: 0 Ajovy Autoinjector 225 mg/1.5 mL Auto-Injector 225 mg SUBCUT MONTHLY RF: 0 fluoxetine 40 mg capsule 80 mg PO DAILY RF: 0 potassium chloride 10 mEq tablet,ER particles/crystals 10 meq PO DAILY RF: 0 furosemide [Lasix] 20 mg Tablet 20 mg PO BID RF: 0 trazodone 100 mg tablet 100 mg PO HS RF: 0 mirtazapine [Remeron] 15 mg tablet 15 mg PO HS RF: 0 nitroglycerin 0.2 mg/hr patch 24 hour 1 patch topical DAILY RF: 0 Adult Multivitamin Gummies 200 mcg Tablet,Chewable 2 tab PO DAILY RF: 0 Saccharomyces boulardii [Florastor] 250 mg capsule 250 mg PO BID Qty: 20 RF: 0 sennosides [Senokot] 8.6 mg tablet 8.6 mg PO HS Qty: 30 RF: 0 docusate sodium [Colace] 100 mg capsule 100 mg PO BID Qty: 60 RF: 0 Discharge Orders: Discharge Order (Routine); Ordered 04/27/21 Ordered By: Tanika Guo/Other Patient Handouts: Cellulitis Dc, ED Cellulitis Admission Data Admit Date/Time: 04/24/21 17:41 Attending Provider: Rio Chang Admit Provider: Mario Garner Primary Care Provider: Rama Reed Other Providers: Osvaldo Lau ; Neel Rodriguez ; Viet Landa ; Alban Varner I. ; Сергей Toure II ; Tabatha Clancy ; Amarjit Rod ; Peter Palencia ; Tanika Varner Other Interventions: Discharge Summary Assessment (RN) Last Done: 04/27/21 15:09
[2021-04-27] MEDS: WARFARIN SOD 10 MG TAB PO SCH (15:56)
--- NOTE | 2021-04-27 17:28 | Electrocardiogram Report ---
Test Reason : Blood Pressure : / mmHG Vent. Rate : 066 BPM Atrial Rate : 066 BPM P-R Int : 184 ms QRS Dur : 090 ms QT Int : 444 ms P-R-T Axes : 045 023 048 degrees QTc Int : 465 ms Normal sinus rhythm Normal ECG When compared with ECG of 24-APR-2021 16:08, No significant change was found Confirmed by Mario Knight ([id number]) on 04/27/2021 5:28:24 PM Referred By: REFERRED SELF Confirmed By:Que Knight
[2021-04-30] MEDS ORDERED: WARFARIN SOD 5 MG TAB PO SCH (16:00)
== END 2021-04-27 16:54 | disposition home or self-care (01) | DRG 919 ==
LOC: ED 13:02 → EDINP 17:41 → SUATTDRO 17:41 → 3E 22:00

== ENCOUNTER 2023-07-10 08:48 | Inpatient (IN) ==
[2023-07-10] MEDS: SODIUM CHLORIDE 0.9% 1,000 ML IV SCH ×2 (09:45→14:15)
[2023-07-10] MEDS: ceFAZolin 2000MG 2,000 MG/15 ML SYR IV STA (09:46)
[2023-07-10 09:47] LABS: Basophils # (auto) 0.04 K/uL (0.00-0.20); Basophils % (auto) 0.9 %; Eosinophils # (auto) 0.15 K/uL (0.00-0.50); Eosinophils % (auto) 3.3 %; Hematocrit (blood only) 37.4 % (37.0-47.0); Hemoglobin 11.9 g/dl (12.0-16.0); Immature Granulocytes # (auto) 0.02 K/uL (0.01-0.20); Immature Granulocytes % (auto) 0.4 %; Lymphocytes # (auto) 1.03 K/uL (1.20-3.40); Lymphocytes % (auto) 22.4 %; Mean Corpuscular Hemoglobin 28.1 pg (25.0-34.0); Mean Corpuscular Hgb Conc 31.8 g/dL (32.0-36.0); Mean Corpuscular Volume 88.4 fL (80.0-100.0); Mean Platelet Volume 11.5 fL (9.4-12.4); Monocytes # (auto) 0.39 K/uL (0.11-0.59); Monocytes % (auto) 8.5 %; Neutrophils # (auto) 2.96 K/uL (1.40-6.50); Neutrophils % (auto) 64.5 %; Platelet Count 230 K/uL (130-400); RDW Coefficient of Variation 14.3 % (11.5-14.5); RDW Standard Deviation 46.4 fL (36.4-46.3); Red Blood Count 4.23 M/uL (4.20-5.40); White Blood Count 4.59 K/ul (4.8-10.8)
[2023-07-10 09:51] LABS: Albumin Level 4.3 gm/dl (3.4-5.0); BUN Creatinine Ratio 14.9 (10-20); Bilirubin Direct 0.1 mg/dl (0-0.2); Bilirubin,Total 0.3 mg/dl (0.2-1.0); Calcium 9.3 mg/dl (8.6-10.3); Creatinine Clr Calc Pharmacy 90.1 ml/min; Est GFR (African American) 76.4 ml/min; Est GFR (Non-African American) 65.9 ml/min; Total Protein 7.3 gm/dl (6.0-8.3)
--- NOTE | 2023-07-10 09:51 | Emergency Department Note ---
Impression & Plan Left leg cellulitis, Diabetic ulcer of left foot ED Provider Note CHIEF COMPLAINT: Left lower extremity infection HISTORY OF PRESENT ILLNESS: This 58-year-old female with past medical history of obesity, peripheral neuropathy, diabetes, migraine headaches, DVT on anticoagulation with a chronic ulceration on the dorsum of the left foot. She is followed by the wound care clinic and currently taking Bactrim for the last several days for a superimposed cellulitis. Patient was there for a follow-up visit today and erythema with lymphangitic streaking was noticed up the hollins. Patient presents to the emergency department for further evaluation. Patient states she just noticed this lymphangitic streaking in the last 24 hours. She does not believe she has had a fever. REVIEW OF SYSTEMS: A review of systems was performed with positives and pertinent negatives listed in the history of present illness. 10 systems were reviewed and are otherwise negative. ALLERGIES: see below MEDICATIONS: see below PMH: see below SOCIAL HISTORY: see below DDx: Cellulitis, DVT, diabetic ulceration with infection, osteomyelitis among others. PHYSICAL EXAM: Vital signs reviewed. General: Well-appearing 58-year-old female, in no significant distress. HEENT: No scleral icterus, PERRLA, neck supple. Moist mucous membranes Cardiovascular: Regular rate and rhythm, no extra sounds. Pulmonary: Clear to auscultation bilaterally, normal work of breathing. Abdomen: Soft, nontender, nondistended, positive bowel sounds. Musculoskeletal: Atraumatic, no peripheral edema. Neurologic: Patient awake alert and oriented x 3, speech is clear Skin: Warm, dry, approximate 3 cm ulceration with clean margins noted to the left dorsum of the foot near the MTP joint approximately 3rd-4th toes. Lymphangitic streaking more proximally to the proximal third of the tibia. Significant erythema surrounding the wound on the foot. No obvious drainage. EMERGENCY DEPARTMENT COURSE/MDM: This patient was evaluated and appeared to be in no significant distress. IV access was obtained and laboratory work was drawn. The patient was placed on the program control analyst. Blood cultures were obtained and the patient was placed on IV cefazolin 2 g based on culture results. Patient's laboratory work is fairly reassuring, the patient's WBC is slightly low at 4. CRP is slightly elevated at 2.9. Patient will be evaluated by the hospitalist service for admission and further management. She is aware of the plan and agrees. MONITORING: An order for cardiac monitoring was placed and the patient is noted to be in a normal sinus rhythm at 67 beats per minute. DISPOSITION: Admission Past Med/Surg History Medical History (Updated 07/12/23 @ 11:36 by Joelle Vega MD) Diabetes Peripheral neuropathy OAB (overactive bladder) Pain in toe of left foot Paresthesia of left foot Insulin resistance metformin BID Morbid obesity with BMI of 40.0-44.9, adult Morbid obesity Osteoarthritis Degenerative disc disease Chronic back pain GERD (gastroesophageal reflux disease) controlled Deep vein thrombosis LLE (several years ago - control pills)- on warfarin Post traumatic stress disorder Depression Anxiety Migraine on monthly Ajovy injection Asthma controlled Sleep apnea CPAP Allergic reaction to chemical substance Dysfunctional uterine bleeding Symptomatic anemia Surgical History History of dilatation and curettage S/P epidural steroid injection S/P lumbar fusion S/P foot surgery, left H/O arthroscopy of right knee x3 Right knee arthroscopy, chondroplasty (03/17/2020): LMA #4 at [facility] [place] H/O arthroscopy of left knee History of colonoscopy History of arthroscopic knee surgery History of foot surgery History of back surgery Family History Other Asthma Heart disease Hypertension No family history of adverse response to anesthesia Social History Smoking Status: Former smoker Tobacco Type: Cigarettes Cigarettes Per Day: 1/2 pack a day.; Second Hand Exposure: Yes; Do You Dip or Chew Tobacco: No; Tobacco Cessation Education Requested by Patient: No Hx Alcohol Use: Yes Alcohol type: beer Hx Substance Use: No Preferred Language: Zambian Communication Ability: Effective Heel Cementer Required: No Beliefs That Will Affect Care: None Current Living Situation: Alone Current Living Situation Comment: lives with younger son Other Information That Helps Us Care for You: No Feels Safe at Home: Yes Safety Concerns: Feels Safe At This Time Assistive Devices: Cane, CPAP and Walker Allergies Allergies Allergy/AdvReac Type Severity Reaction Status Date / Time enoxaparin Allergy Severe Hives Verified 07/10/23 07:57 doxycycline Allergy Intermediate Hives Verified 07/10/23 07:57 hydrocortisone Allergy Mild Rash Verified 07/10/23 07:57 Penicillins Allergy Unknown Unknown Verified 07/10/23 07:57 childhood reaction cephalexin Allergy Verified 07/10/23 07:57 suture AdvReac Intermediate vicryl Verified 07/10/23 07:57 nylon-non healing would Home Meds Home Medications Medication Instructions Recorded Confirmed albuterol sulfate 90 mcg/actuation 1 inh inhalation Q6H PRN Shortness 02/10/20 07/10/23 breath activated powder Of Breath inhaler,sensor ascorbic acid (vitamin C) 100 mg 300 mg PO QAM 02/10/20 07/10/23 chewable tablet cetirizine 10 mg tablet (Zyrtec) 10 mg PO BID 02/10/20 07/10/23 cholecalciferol (vitamin D3) 50 2,000 unit PO QAM 02/10/20 07/10/23 mcg (2,000 unit) tablet (Vitamin D3) fremanezumab-vfrm 225 mg/1.5 mL 225 mg subcut MONTHLY 02/10/20 07/10/23 subcutaneous auto-injector (Ajovy) magnesium oxide 400 mg PO QAM 02/10/20 07/10/23 montelukast 10 mg tablet 10 mg PO HS 02/10/20 07/10/23 (Singulair) pregabalin 200 mg capsule (Lyrica) 200 mg PO BID 02/10/20 07/10/23 warfarin 5 mg tablet 5 - 10 mg PO DIRECTED 02/10/20 07/10/23 multivitamin with minerals-folic 2 tab PO DAILY 09/01/20 07/10/23 acid 200 mcg chewable tablet (Adult Multivitamin Gummies) furosemide 20 mg tablet (Lasix) 20 mg PO BID 04/24/21 07/10/23 potassium chloride 10 mEq 10 meq PO DAILY 04/24/21 07/10/23 tablet,extended release(part/cryst) trazodone 100 mg tablet 200 mg PO HS PRN Sleep 04/24/21 07/10/23 lorazepam 1 mg tablet (Ativan) 1 mg PO TID PRN Anxiety 11/11/22 07/10/23 solifenacin 10 mg tablet 10 mg PO DAILY 12/20/22 07/10/23 duloxetine 60 mg capsule,delayed 120 mg PO DAILY 01/09/23 07/10/23 release (Cymbalta) clotrimazole 1 % topical cream 1 applic topical BID 05/08/23 07/10/23 metformin 500 mg tablet 2,000 mg PO HS 06/17/23 07/10/23 carbamazepine 100 mg 100 mg PO BID 06/26/23 07/10/23 capsule,extended release [id number] (Carbatrol) Previous Rx's Medication Instructions Recorded sennosides 8.6 mg tablet (Senokot) 8.6 mg PO HS #30 tabs 09/22/20 pregabalin 100 mg capsule 100 mg PO BID #60 caps 05/21/23 tramadol 50 mg tablet 50 - 100 mg (1 - 2 x 50 mg) PO Q6H 06/23/23 PRN pain #60 tabs sulfamethoxazole 800 1 tab PO BID 14 days #28 tabs 07/07/23 mg-trimethoprim 160 mg tablet (Bactrim DS) Results & Data (ED) Vital Signs Vital Signs - 24 hr 07/10/23 08:52 Temperature 36.9 C Temperature Source Oral Pulse Rate 62 Respiratory Rate 18 Respiratory Effort / Characteristics Non-Labored Spontaneous Respiratory Depth Normal Blood Pressure 162/109 H Blood Pressure Mean 126 Blood Pressure Position Sitting Pulse Oximetry 96 Oxygen Delivery Method Room Air Sepsis Recent Fever Within 48 Hours No Sepsis New/Unexplained Change in Mental Status N/A Sepsis Action Taken by Nursing No Action Required Home Medications Current Medication List: was personally reviewed by me Laboratory Data Attestation: I reviewed the patient's lab results. 07/12/23 05:49 07/12/23 05:49 Lab Results 07/10/23 Range/Units 09:08 WBC 4.59 L (4.8-10.8) K/ul RBC 4.23 (4.20-5.40) M/uL Hgb 11.9 L (12.0-16.0) g/dl Hct 37.4 (37.0-47.0) % MCV 88.4 (80.0-100.0) fL MCH 28.1 (25.0-34.0) pg MCHC 31.8 L (32.0-36.0) g/dL RDW Std Deviation 46.4 H (36.4-46.3) fL RDW Coeff of Bonnie 14.3 (11.5-14.5) % Plt Count 230 (130-400) K/uL MPV 11.5 (9.4-12.4) fL Immature Gran % (Auto) 0.4 % Neut % (Auto) 64.5 % Lymph % (Auto) 22.4 % Tyrrell % (Auto) 8.5 % Eos % (Auto) 3.3 % Baso % (Auto) 0.9 % Neut # (Auto) 2.96 (1.40-6.50) K/uL Lymph # (Auto) 1.03 L (1.20-3.40) K/uL Tyrrell # (Auto) 0.39 (0.11-0.59) K/uL Eos # (Auto) 0.15 (0.00-0.50) K/uL Baso # (Auto) 0.04 (0.00-0.20) K/uL Immature Gran # (Auto) 0.02 (0.01-0.20) K/uL Sodium 139 (136-145) mmol/L Potassium 4.0 (3.5-5.1) mmol/L Chloride 103 (98-107) mmol/L Carbon Dioxide 29 (21-32) mmol/L Anion Gap 7 (3-11) BUN 14 (6-23) mg/dl Creatinine 0.94 (0.6-1.2) mg/dl Est Cr Clr Drug Dosing 90.1 ml/min Est GFR ( Amer) 76.4 ml/min Est GFR (Non-Af Amer) 65.9 ml/min BUN/Creatinine Ratio 14.9 (10-20) Glucose 82 (70-99(Fasting)) mg/dl Calcium 9.3 (8.6-10.3) mg/dl Total Bilirubin 0.3 (0.2-1.0) mg/dl Direct Bilirubin 0.1 (0-0.2) mg/dl AST 19 (13-39) U/L ALT 13 (7-52) U/L Alkaline Phosphatase 91 (34-104) U/L C-Reactive Protein 2.90 H (0-0.5) mg/dl Total Protein 7.3 (6.0-8.3) gm/dl Albumin 4.3 (3.4-5.0) gm/dl Administered Medications Carbamazepine (Carbamazepine Xr 100 Mg Tabcr) 100 mg PO BID LUAN Stop: 08/09/23 20:59 Last Admin: 05/11/24 08:22 Dose: 100 mg Documented By: Admin: 07/11/23 19:47 Dose: 100 mg Documented By: Admin: 07/11/23 08:45 Dose: 100 mg Documented By: Admin: 07/10/23 21:15 Dose: 100 mg Documented By: ACE Cetirizine HCl (Cetirizine Hcl 10 Mg Tablet) 10 mg PO BID LUAN Stop: 08/09/23 20:59 Last Admin: 07/12/23 08:21 Dose: 10 mg Documented By: Admin: 07/11/23 19:46 Dose: 10 mg Documented By: Admin: 07/11/23 08:45 Dose: 10 mg Documented By: Admin: 07/10/23 21:15 Dose: 10 mg Documented By: ACE Duloxetine HCl (Duloxetine Hcl 60 Mg Cap) 120 mg PO DAILY LUAN Stop: 08/10/23 08:59 Last Admin: 07/12/23 08:22 Dose: 120 mg Documented By: Admin: 07/11/23 08:46 Dose: 120 mg Documented By: ANTOLIN Furosemide (Furosemide 20 Mg Tab) 20 mg PO BID17 LUAN Stop: 08/09/23 16:59 Last Admin: 07/12/23 08:22 Dose: 20 mg Documented By: Admin: 07/11/23 16:56 Dose: 20 mg Documented By: Admin: 07/11/23 08:46 Dose: 20 mg Documented By: Admin: 07/10/23 17:28 Dose: 20 mg Documented By: OSIRIS Cefazolin Sodium (Ancef 2000mg) 2,000 mg in 15 mls @ 3.75 mls/min IV Q8H LUAN Stop: 07/17/23 16:59 Last Admin: 07/12/23 08:22 Dose: 3.75 mls/min Documented By: Admin: 07/12/23 01:27 Dose: 3.75 mls/min Documented By: Admin: 07/11/23 16:55 Dose: 3.75 mls/min Documented By: Admin: 07/11/23 08:45 Dose: 3.75 mls/min Documented By: Admin: 07/11/23 00:09 Dose: 3.75 mls/min Documented By: Marija Admin: 07/10/23 17:28 Dose: 3.75 mls/min Documented By: OSIRIS Insulin Aspart (Insulin Aspart Per Unit Charge) 0 units SC ACHS [facility] Stop: 08/09/23 20:59 Last Admin: 07/12/23 08:28 Dose: Not Given Documented By: OG Co-signed By: TIFFANIE Admin: 07/11/23 21:17 Dose: Not Given Documented By: Admin: 07/11/23 17:45 Dose: Not Given Documented By: Admin: 07/11/23 13:09 Dose: Not Given Documented By: Admin: 07/11/23 08:37 Dose: Not Given Documented By: Admin: 07/10/23 21:16 Dose: Not Given Documented By: ACE Co-signed By: [id number] Magnesium Oxide (Magnesium Oxide 400 Mg Tab) 400 mg PO QAM [facility] Stop: 08/10/23 08:59 Last Admin: 07/12/23 08:22 Dose: 400 mg Documented By: Admin: 07/11/23 08:46 Dose: 400 mg Documented By: ANTOLIN Miscellaneous (Carbohydrates For Hypoglycemia ) 15 - 30 gm PO UD PRN PRN Reason: Hypoglycemia Protocol Stop: 08/09/23 18:03 Last Admin: 07/10/23 17:43 Dose: 15 gm Documented By: OSIRIS Montelukast Sodium (Montelukast Sodium 10 Mg Tablet) 10 mg PO HS [facility] Stop: 08/09/23 20:59 Last Admin: 07/11/23 19:46 Dose: 10 mg Documented By: Admin: 07/10/23 21:15 Dose: 10 mg Documented By: ACE Oxybutynin Chloride (Oxybutynin Chloride Xl 5 Mg Tabcr) 10 mg PO DAILY LUAN Stop: 08/10/23 08:59 Last Admin: 07/12/23 08:22 Dose: 10 mg Documented By: Admin: 07/11/23 08:46 Dose: 10 mg Documented By: ANTOLIN Oxycodone HCl (Oxycodone Hcl Ir 5 Mg Tab (Immediate Release)) 5 mg PO Q6H PRN PRN Reason: Mod-Sev Pain (Scale 4-10) Stop: 07/24/23 21:15 Last Admin: 07/11/23 23:54 Dose: 5 mg Documented By: Admin: 07/10/23 21:29 Dose: 5 mg Documented By: ACE Potassium Chloride (Potassium Chloride 10 Meq Tabcr) 10 meq PO DAILY LUAN Stop: 08/10/23 08:59 Last Admin: 07/12/23 08:22 Dose: 10 meq Documented By: Admin: 07/11/23 08:46 Dose: 10 meq Documented By: ANTOLIN Pregabalin (Pregabalin 100 Mg Cap) 100 mg PO BID LUAN Stop: 08/09/23 20:59 Last Admin: 07/12/23 08:21 Dose: 100 mg Documented By: Admin: 07/11/23 19:45 Dose: 100 mg Documented By: Admin: 07/11/23 08:44 Dose: 100 mg Documented By: Admin: 07/10/23 21:14 Dose: 100 mg Documented By: ACE Pregabalin (Pregabalin 100 Mg Cap) 200 mg PO BID LUAN Stop: 08/09/23 20:59 Last Admin: 07/12/23 08:21 Dose: 200 mg Documented By: Admin: 07/11/23 19:45 Dose: 200 mg Documented By: Admin: 07/11/23 08:45 Dose: 200 mg Documented By: Admin: 07/10/23 21:14 Dose: 200 mg Documented By: ACE Sennosides (Senna 8.6 Mg Tab) 8.6 mg PO HS LUAN Stop: 08/09/23 20:59 Last Admin: 07/11/23 19:46 Dose: 8.6 mg Documented By: Admin: 07/10/23 21:15 Dose: 8.6 mg Documented By: ACE Trazodone HCl (Trazodone Hcl 100 Mg Tab) 200 mg PO HS PRN PRN Reason: Sleep Stop: 08/09/23 13:59 Last Admin: 07/11/23 23:54 Dose: 200 mg Documented By: Admin: 07/10/23 21:45 Dose: 200 mg Documented By: ACE Vitamin D (Cholecalciferol 25 Mcg (1000 Units) Tab) 50 mcg PO QAM LUAN Stop: 08/10/23 08:59 Last Admin: 07/12/23 08:22 Dose: 50 mcg Documented By: Admin: 07/11/23 08:45 Dose: 50 mcg Documented By: ANTOLIN Discontinued Medications Sodium Chloride (Nss) 1,000 mls @ 125 mls/hr IV .Q8H LUAN Stop: 07/10/23 17:14 Last Infusion: 07/10/23 15:29 Dose: Infused Documented By: Admin: 07/10/23 09:45 Dose: 125 mls/hr Documented By: GABRIELLE Cefazolin Sodium (Ancef 2000mg) 2,000 mg in 15 mls @ 3.75 mls/min IV NOW STA Stop: 07/10/23 09:27 Last Admin: 07/10/23 09:46 Dose: 3.75 mls/min Documented By: GABRIELLE Sodium Chloride (Nss) 1,000 mls @ 100 mls/hr IV .Q10H LUAN Stop: 07/11/23 09:44 Last Infusion: 07/11/23 10:39 Dose: Infused Documented By: Admin: 07/11/23 00:14 Dose: 100 mls/hr Documented By: [id number] Infusion: 07/11/23 00:14 Dose: Infused Documented By: [id number] Admin: 07/10/23 14:15 Dose: 100 mls/hr Documented By: ELSI Heparin Sodium/Dextrose (Heparin Sodium/Dextrose) 25,000 units in 500 mls @ 20 mls/hr IV .Q24H LUAN; Protocol Stop: 08/09/23 19:14 Last Admin: 07/10/23 22:50 Dose: Not Given Documented By: ACE Ioversol (Optiray 320 125ml) 119 ml IV ONCE ONE Stop: 07/10/23 14:39 Last Admin: 07/10/23 17:29 Dose: Not Given Documented By: OSIRIS Morphine Sulfate (Morphine Sulfate 4 Mg/Ml 1 Ml Carp\Vial) 4 mg IV NOW STA Stop: 07/10/23 10:14 Last Admin: 07/10/23 10:21 Dose: 4 mg Documented By: GABRIELLE Ondansetron HCl (Ondansetron Inj 2 Mg/Ml 2 Ml Vial) 4 mg IV NOW STA Stop: 07/10/23 10:14 Last Admin: 07/10/23 10:21 Dose: 4 mg Documented By: GABRIELLE Warfarin Sodium (Warfarin Sod 10 Mg Tab) 10 mg PO NOW ONE Stop: 07/11/23 14:56 Last Admin: 07/11/23 16:55 Dose: 10 mg Documented By: RLB Discharge Plan Visit Data Chief Complaint: Wound Stated Complaint: cellulitis ED Provider: Joelle Vega Discharge Problem: Left leg cellulitis, Diabetic ulcer of left foot Patient Disposition: Admitted As Inpatient Discharge Instructions Interventions: ED Discharge Assessment Last Done: 07/10/23 16:20 Discharge Problem: Diabetic ulcer of left foot Qualifiers: Diabetic foot ulcer location: midfoot Diabetes mellitus type: type 2 Non- pressure ulcer stage: with fat layer exposed Qualified Code(s): E11.621 - Type 2 diabetes mellitus with foot ulcer; L97.422 - Non-pressure chronic ulcer of left heel and midfoot with fat layer exposed
[2023-07-10] MEDS: ONDANSETRON INJ 2 MG/ML 2 ML VIAL IV STA (10:21)
[2023-07-10] MEDS: MoRPHine SULFATE 4 MG/ML 1 ML CARP\\VIAL IV STA (10:21)
--- OUTSIDE RECORDS SUMMARY | 2023-07-10 10:49 | External Medical Summary | Summary of Care ---
Author Name Unknown Organization [facility] Address [address] [place] [address] Phone [phone] Care Team Providers Care Speech Therapist Early Intervention Name Role Phone Rama Reed MD Primary Care Provid er Reason for Visit * Reason Onset Date Comments Allergy Serum 07/08/2023 Encounter Details Date Type Department Care Team (Late st Contact Info) Description 07/08/2023 7:40 AM EDT Nurse Only Allergy/Immunology Scenery [place] [address] [place] [address] Christine, Nurse Allergy Scenery [address] [place] [address] Allergy Serum Allergies Active Allergy Reactions Criticality Noted Date Comments Aspirin 06/11/2022 Buspirone 08/18/2020 Sexual side effects. Doxycycline Hives High 05/01/2023 Enoxaparin Rash 06/24/2016 Hydrocortisone Low 07/08/2022 Other reaction(s): Rash Hydrodiuril Rash 05/29/2009 Hydroquinone 01/15/2019 Nylon sutures Cephalexin 10/24/2020 Rash Naproxen 10/18/2019 Omeprazole 10/18/2019 Pantoprazole Diarrhea 09/16/2022 Penicillins 01/21/2001 rash Bupropion 08/18/2020 Hair loss documented as of this encounter (statuses as of 07/08/2023) Medications Medication Sig Dispensed Refills Start Date End Date Status VITAMIN C 500 MG PO TABS one daily 0 10/26/2013 Active Calcium 500 MG Tablet Take 1 Tablet by mouth in the morning. 0 Active Magnesium 100 MG Tablet Take 1 Tablet by mouth in the morning. 0 Active Cholecalciferol (VITAMIN D3) 2000 units Capsule Take 2 Capsules by mouth in the morning. 30 Cap 5 05/08/2018 Active Alive Womens 50+ Oral Tablet Chewable Take 2 tablets by mouth daily 0 10/10/2020 Active traZODone HCl 100 MG Oral Tablet (Desyrel) Take 2 Tablets by mouth at bedtime. 0 Active CPAP every night at bedtime. 0 Active Docusate Sodium 100 MG Oral Capsule (Colace) Take 1 Capsule by mouth in the morning and 1 Capsule before bedtime. 0 04/27/2021 Active ARIPiprazole 10 MG Oral Tablet (Abilify) Take 1 Tablet by mouth in the morning. 0 10/04/2021 Active LORazepam 0.5 MG Oral Tablet (Ativan) Take 1 Tablet by mouth every 8 hours as needed for Anxiety. 0 11/22/2021 Active Elderberry 500 MG Oral Capsule Take 1 Capsule by mouth in the morning. 0 Active hydrOXYzine Pamoate 25 MG Oral Capsule (Vistaril) 1 Capsule 3 times a day as needed. 0 01/31/2022 Active SuperTruperToxCloud Verio w/Device KitIndications:Predi abetes Check fasting blood sugar once a day. R73.03 1 Kit 0 03/15/2022 Active SuperTruperTouch UltraSoft LancetsIndications:P rediabetes Check fasting blood sugar once a day. R73.03 100 Each 3 04/02/2022 Active SuperTruperTouch Ultra Control In Vitro SolutionIndications: Prediabetes Dx:R73.03 Test sugars once daily 100 Each 3 06/07/2022 Active DULoxetine HCl 60 MG Oral Capsule Delayed Release Particles (Cymbalta) Take 1 Capsule by mouth in the morning. 0 11/11/2022 Active Euflexxa 20 MG/2ML Intra-articular Solution Prefilled Syringe (Sodium Hyaluronate (Viscosup)) Inject 20 mg intra-articularl y into right knee every 7 days for 3 weeks 6 mL 0 12/23/2022 Active Pantoprazole Sodium 20 MG Oral Tablet Delayed Release (Protonix) 1 Tablet. 0 08/23/2022 Active Triamcinolone Acetonide 0.1 % External Cream (Aristocort)Indicati ons:Intertrigo,Rash and nonspecific skin eruption Apply topically to affected area 2 times a day. To affected area. 80 g 5 01/17/2023 Active Terbinafine HCl 1 % External Cream (LamISIL AT)Indications:Inter quan Apply topically to affected area 2 times a day. To affected area. 42 g 1 01/17/2023 Active Fremanezumab-vfrm 225 MG/1.5ML Subcutaneous Solution Prefilled Syringe (Ajovy)Indications:M igraine variant Inject 1.5 mL under the skin Every Month. 4.5 mL 1 01/29/2023 Active Rizatriptan Benzoate 10 MG Oral Tablet (Maxalt) at onset of headache, may repeat in two hours. Up to two pills in 24 hours. 10 Tablet 3 03/10/2023 Active Furosemide 20 MG Oral Tablet (Lasix)Indications:E artemio of left lower extremity TAKE ONE TABLET BY MOUTH TWICE A DAY WITH POTASSIUM FOR FLUID RETENTION 180 Tablet 1 03/22/2023 Active Pregabalin 200 MG Oral Capsule (Lyrica)Indications: Bone pain,Chronic back pain, unspecified back location, unspecified back pain laterality,Polyneuro zenobia in other diseases classified elsewhere (HCC),Displacement of lumbar intervertebral disc without myelopathy,Spinal stenosis of lumbar region without neurogenic claudication,Back disorder Take 1 Capsule by mouth in the morning and 1 Capsule before bedtime. 180 Capsule 1 03/31/2023 Active Montelukast Sodium 10 MG Oral Tablet (Singulair) TAKE ONE TABLET BY MOUTH EVERY DAY IN THE EVENING 90 Tablet 03/31/2023 5 Active Potassium Chloride Darlin ER 10 MEQ Oral Tablet Extended ReleaseIndications:E artemio of left lower extremity TAKE ONE TABLET BY MOUTH EVERY MORNING 90 Tablet 1 03/31/2023 5 Active Warfarin Sodium 5 MG Oral Tablet (Coumadin)Indication s:History of venous thrombosis,Anticoagu lant long-term use Take 1-2 Tablets by mouth daily. OR DIRECTED BY [facility]MADIN CLINIC 200 Tablet 1 03/31/2023 Active Solifenacin Succinate 10 MG Oral Tablet (VESIcare) Take 1 Tablet by mouth in the morning. 90 Tablet 3 04/10/2023 Active hydrOXYzine HCl 25 MG Oral TabletIndications:Ti erica corporis Take 1 Tablet by mouth 3 times a day as needed for Itching. 40 Tablet 2 04/30/2023 Active traMADol HCl 50 MG Oral Tablet (Ultram) Take 1 Tablet by mouth every 6 hours as needed. 0 Active metFORMIN HCl ER 500 MG Oral Tablet Extended Release 24 Hour (Glucophage XR)Indications:Type 2 diabetes mellitus without complication, without long-term current use of insulin (HCC) Take 1 tablet by mouth at bedtime for 7 days, then take 2 tablets at bedtime for 7 days, then take 3 tablets at bedtime for 7 days then take 4 tablets at bedtime. 70 Tablet 0 05/27/2023 Active Clotrimazole 1 % External Cream (Lotrimin)Indication s:Tinea corporis APPLY TOPICALLY TO AFFECTED AREA 2 TIMES A DAY FOR 14 DAYS. APPLY TO LEFT ARM 120 g 1 06/05/2023 Active SuperTruperTouch Verio In Vitro Strip (Glucose Blood) CHECK FASTING BLOOD SUGAR ONCE DAILY 100 Strip 3 06/09/2023 Active SuperTruperTouch Delica Plus [id number] CHECK FASTING BLOOD SUGAR ONCE DAILY 100 Each 3 06/09/2023 Active Euflexxa 20 MG/2ML Intra-articular Solution Prefilled Syringe (Sodium Hyaluronate (Viscosup)) Inject 20 mg intra-articularl y into bilateral knee joints every week for 3 doses. 12 mL 0 06/24/2023 Active Sulfamethoxazole-Tri methoprim 800-160 MG Oral Tablet (Bactrim DS) 0 07/07/2023 Active Ozempic (0.25 or 0.5 MG/DOSE) 2 MG/3ML Solution Pen-injector (Semaglutide(0.25 or 0.5MG/DOS))Indicatio ns:Class 2 severe obesity due to excess calories with serious comorbidity and body mass index (BMI) of 39.0 to 39.9 in adult (HCC) Inject 0.25mg under the skin once weekly for 4 weeks then increase to 0.5mg under the skin once weekly thereafter 9 mL 1 07/08/2023 Active Hospital, Clinic, or Other Facility Administered Medication Ordered Dose Route Frequency Start Date End Date Status hEParin, bupivacaine (Sensorcaine) 30 mL, methylPREDNISolone sodium succ (SOLU-Medrol) 125 mg, gentamicin 80 mg, sodium bicarbonate 4 mEq bladder instillationIndications:Chron ic interstitial cystitis with hematuria IS QWEEK 01/16/2022 Active documented as of this encounter (statuses as of 07/08/2023) Active Problems Problem Noted Date Diagnosed Date Morbid (severe) obesity due to excess calories 0 04/30/2023 Type 2 diabetes mellitus without complication Major depressive disorder, recurrent, moderate 0 04/30/2023 Food insecurity 02/10/2023 Overview: Per [facility] Protocol 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 Recurrent major depressive disorder 09/05/2022 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 11/12/2021 Polyneuropathy in other diseases classified else where 11/12/2021 Lateral epicondylitis of right elbow 09/11/2021 Sacroiliitis 08/22/2021 Lower extremity ulceration 05/17/2021 Primary osteoarthritis of both first carpometaca rpal joints 12/13/2020 Iliotibial band syndrome 09/08/2020 Tear of meniscus of knee 09/08/2020 Congenital pes planus 09/08/2020 Non-pressure chronic ulcer o f other part of left foot limited to breakdown of skin 04/24/2020 Morbid obesity with body mass index of 40.0-44.9 in adult 03/28/2020 DJD (degenerative joint disease) of knee 021 Migraine variant 09/16/2019 RAYMOND on CPAP 09/15/2017 Dysfunction of left eustachian tube 03/28/2017 Allergic rhinitis 03/28/2017 Elevated factor VIII level 12/26/2016 Polyneuropathy 11/12/2016 History of DVT (deep vein thrombosis) 07/13/2015 Iron deficiency anemia due to chronic blood loss 07/13/2015 Migraine without aura and wi thout status migrainosus, not intractable 05/05/2015 Gastroesophageal reflux disease without esophagi tis 02/08/2015 Vitamin D deficiency 07/29/2013 Chronic back pain 10/09/2011 Insulin resistance 08/26/2011 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 0 to 44.9 in adult 02/14/2020 04/13/2020 Overview: Per Obesity protocol - bmi= 33.41 02/11/12 BMI 38.0-38.9,adult 05/26/2017 02/17/20 20 Overview: bmi= 33.41 02/11/12 Menometrorrhagia 07/13/2015 08/21/2016 Preop examination 07/13/2015 08/21/2016 Otalgia 07/13/2015 08/21/2016 Other allergic rhinitis 06/12/201508/02 Dry skin 05/05/2015 08/21/2016 INFORMATION 03/03/2015 08/21/2016 Overview: Risk of 1% Eustachian tube dysfunction 02/08/2015 08/21/2016 Abdominal bloating 12/07/2013 4 Obstipation 12/07/2013 08/21/2016 Knee pain, left 10/26/2013 01/06/2014 Severe obesity with body mas s index (BMI) of 35.0 to 39.9 with serious comorbidity 07/29/2013 Overview: bmi= 38.88 07/29/13 ICD-10 update of inactive diagnosis Menometrorrhagia 07/29/2013 01/06/2014 Iron deficiency anemia 07/29/201302/02 Screen for colon cancer 07/29/201308/02 Urgency of urination 11/05/2012 014 Dysuria 11/05/2012 01/06/2014 Vagina itching 11/05/2012 01/06/2014 Trigonitis 11/05/2012 01/06/2014 Bacterial vaginosis 10/23/2012 03/16/19 16 Urinary frequency 10/23/2012 01/06/2014 Chronic sinusitis 06/25/2012 01/06/2014 Amenorrhea 06/25/2012 03/16/2015 Cough 06/15/2012 01/06/2014 History of venous thrombosis 05/14/2012 04/02/2019 Overview: duplicate Viral infection 03/12/2012 01/06/2014 Ankle pain, right 03/12/2012 01/06/2014 Sprain of ankle 03/12/2012 01/06/2014 Viral infection 03/12/2012 01/06/2014 Dizziness 03/12/2012 01/06/2014 Other chest pain 03/12/2012 01/06/2014 Spasm of muscle 02/11/2012 03/16/2015 Common migraine 01/14/2012 04/02/2019 Overview: history Obesity, Class I, BMI 30.0-3 4.9 (see actual BMI) 07/22/2011 08/21/2016 Overview: BMI= 33.72 07/22/11 Depression 07/22/2011 08/21/2016 BMI 40.0-44.9, adult 06/06/2011 017 OBESITY, BMI= 34.58 06/12/10 06/12/2010 08/21/2016 HX OF VENOUS THROMBOSIS 06/12/201005/01 Vitamin D deficiency 06/12/2010 014 Major depressive disorder 06/12/2010 Overview: ICD-10 update of inactive term DEEP PHLEBITIS-Left LEG 02/13/201006/01 OBESITY, BMI= 36.37 02/09/10 02/09/2010 08/21/2016 OBESITY, BMI= 35.7 02/05/10 02/05/2010 1 03/08/2013 PATELLOFEMORAL PAIN SYNDROME, RIGHT 01/11/2010 03/16/2015 Pain in limb 01/11/2010 01/06/2014 Anticoagulation management encounter 11/30/2009 01/06/2014 Venous thrombosis 11/30/2009 06/12/2010 Need for influenza vaccination 11/28/2009 03/16/2015 Dermatitis 09/15/2009 01/06/2014 DIZZINESS 07/20/2009 01/06/2014 Spasm of muscle 07/20/2009 01/06/2014 Sprain, lumbosacral 07/20/2009 01/07/20 14 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 Venous thrombosis 09/02/2007 11/28/2009 Dyslipidemia, goal to be determined 06/26/2007 07/20/2009 COMMON MIGRAINE, NOT INTRACTABLE 06/26/2007 03/16/2015 General counseling for presc ription of oral contraceptives 06/26/2007 10/16/2007 TENOSYNOVITIS HAND-WRIST, R>L 06/12/2007 10/16/2007 Polyneuropathy in other dise ases classified elsewhere 06/12/2007 11/12/2016 TENOSYNOVITIS HAND-WRIST, L>R 06/12/2007 10/16/2007 Phlebitis and thrombophlebit is of superficial vessels of lower extremities 06/12/2007 10/16/2007 Dermatitis 06/12/2007 10/16/2007 Spondylolisthesis 08/05/2006 03/16/2015 ANXIETY STATE NOS 08/05/2006 03/16/2015 Elevated blood pressure, situational 08/05/2006 01/19/2007 LUMBAR DISC DISPLACEMENT 02/26/2005 SPINAL STENOSIS-LUMBAR 02/26/200503/16 ACUTE SINUSITIS NOS 02/26/2005 01/20/20 07 ACUTE URI NOS 02/26/2005 06/26/2007 DYSFUNCT EUSTACHIAN TUBE 02/13/2005 OTALGIA, LEFT 02/13/2005 01/19/2007 ASTHMA,UNSPEC,W/ ACUTE EXACERB 04/19/2004 04/19/2009 Acute nasopharyngitis 04/19/20042006 Cough 04/19/2004 01/19/2007 Malaise and fatigue 09/16/2003 01/20/20 07 Excessive menstruation 09/16/200310/15 Metrorrhagia 09/16/2003 10/16/2007 ACUTE STRESS 09/16/2003 03/16/2015 BACKACHE NOS 09/16/2003 01/19/2007 PRESCRIP-ORAL CONTRACEPT 01/10/2003 Tibialis tendinitis 12/29/2002 01/20/20 07 Cyst of bone 12/29/2002 01/19/2007 BONE & CARTILAGE DIS NOS 12/29/2002 Unspecified viral infection, in conditions classified elsewhere and of unspecified site 11/30/2002 01/19/2007 Other, multiple, and unspeci fied sites, insect bite, nonvenomous, without mention of infection(919.4) 11/14/2002 01/19/2007 Toxic effect of venom 11/14/20022007 Overview: ICD-10 update of inactive term OVERWEIGHT 09/01/2002 03/16/2015 Asthma with severity to be determined 05/26/2002 10/16/2007 Overview: ICD-10 update of inactive term Allergic rhinitis 12/09/2001 10/26/2013 Candidal vulvovaginitis 08/20/200103/03 Headache 06/15/2001 01/19/2007 Overview: ICD-10 update of inactive term Back disorder 01/06/2014 Dyslipidemia, goal LDL below 100 04/12/2013 Dyslipidemia, goal LDL below 130 08/21/2016 documented as of this encounter (statuses as of 07/08/2023) Immunizations Name Administration Dates Next Due COVID-19 mRNA, LNP-s, No Pre serve, 2-Dose Series (Pfizer) 12/26/2020,06/29/2020,06/08/2020 PPD 01/02/2006 Pneumococcal Polysaccharide PPV23 (Pneumovax) 12/09/2018,02/03/2009 Seasonal Influenza Virus Vac cine, Unspecified Formulation 11/26/2021,12/26/2020,11/30/2019,11/02,10/16/2016,12/02/2015,11/10/19 16,12/07/2013,11/24/2012,12/16/2011,0 11/13/2010,11/28/2009,02/03/2009,12/31,01/12/2007,01/02/2006, 5,12/13/2003,01/31/2003 Seasonal Influenza, PF, 6 M & above, IM , (FluLaval or Fluzone) 12/25/2022,11/26/2021,12/26/2020,11/02 Seasonal Influenza, Quadriva lent, No Preserve, IM 11/21/2017,12/02/2015,12/06/2014 Seasonal Influenza, Quadriva lent, No Preserve, Mdck 12/09/2018 Seasonal Influenza, Split, I IV3, With Preserve, Inj 10/16/2016,12/07/2013,11/24/2012,12/01,11/13/2010,11/28/2009,02/04/20 09,01/01/2008,01/12/2007,01/02/2006 11/13/2010 TDAP (age 10 and older)(Boostrix) 03/31/2018 TDAP (age 11 and older)(Adacel) 10/16/2007 Zoster Vaccine Recombinant (Shingrix) 03/23/2018 ,09/30/2017 documented as of this encounter Social History Tobacco Use Types Packs/Day Years Used Date Smoking Tobacco: Former Cigarettes 0.3 20 0 03/03/1986 - 03/03/2006 Smokeless Tobacco: Never Comments:was a sometime smok er for yrs Alcohol Use Standard Drinks/Week Comments Not Currently 0 (1 standard drink = 0.6 oz pur e alcohol) not since may 2022 PHQ-2 Answer Date Recorded PHQ Adult Total Score 2 10/07/2022 Hunger Vital Sign Answer Date Recorded Within the past 12 months, y ou worried that your food would run out before you got the money to buy more. Often true 12/26/19 23 Within the past 12 months, t he food you bought just didn't last and you didn't have money to get more. Often true 12/25/2022 Sex and Gender Information Value Date Recorded Sex Assigned at Female 08/17/2018 2:03 PM EDT Gender Identity Female 08/17/2018 2:03 PM EDT Sexual Orientation Straight 08/17/2018 2: 03 PM EDT Job Start Date Occupation Industry Not on file Not on file Not on file documented as of this encounter Progress Notes * Isabela Castro LPN - 07/08/2023 9:23 AM EDT The pt has been properly identified by confirmation of name and date of . AIT serum(s) prepared per Dr Bernard's prescription. Isabela Castro LPN 07/08/2023 documented in this encounter Plan of Treatment Upcoming Encounters Date Type Department Care Team (Late st Contact Info) Description 07/11/2023 8:00 AM EDT Nutrition Services Nutrition, [facility] [address] [place] [address] Jaida Newell RDN [address] [place] [id number] 08/04/2023 8:40 AM EDT Office Visit Neurology [facility] [place] [address] [facility] [place] [address] Cara Shell MD [address] [facility] [place] [address] 08/04/2023 9:45 AM EDT Immunization/Injecti on Allergy/Immunology [facility] [place] [address] [facility] [place] [address] Christine Nurse Allergy [facility] [address] [facility] [place] [address] 09/08/2023 9:20 AM EDT Office Visit [place] [address] [place] [id number] Rama Reed MD [address] [place] [address] 09/23/2023 10:00 AM EDT Nutrition Services Nutrition & Weight Management, [facility] [address] [facility] [place] [address] Rosalba Montes RDN [address] [facility] [place] [address] 10/13/2023 11:00 AM EDT Nurse Only Ancillary Department, [address] [address] [place], Nurse [facility] [address] [place] [address] 10/14/2023 9:00 AM EDT Office Visit Urology, [facility] [address] [facility] [place] [address] Eliud Goodwin MD [address] [place] [address] [place] [address] 01/28/2024 9:20 AM EST Office Visit Nutrition & Weight Management, [facility] [address] [facility] [place] [address] Gerri Kelly [facility]-C [address] [facility] [place] [address] 04/16/2024 10:30 AM EST Office Visit [facility] [address] [facility] [place] [phone] Little Lino CRNP [address] [facility] [place] [address] Scheduled Orders Name Type Priority Associated Diagnoses Orde r Schedule ANTIGEN THERAPY SERVICES Procedures Routine Allergic rhinitis due to animal hair and dander Ordered: 07/08/2023 Scheduled Procedures Name Priority Associated Diagnoses Date/Ti me COLONOSCOPY FLEXIBLE PROXIMAL DIAGNOSTIC Recall History of colon polyps Health Maintenance Due Date Last Done Comments Diabetic Foot Exam 05/23/1981 Cologuard 05/23/2008 Fecal Occult Blood Test 05/23/2008 Sigmoidoscopy 05/23/2008 Pneumococcal Vaccine: Pediatrics (0 to 5 Years) and At-Risk Patients (6 to 64 Years) (2 of 2 - PCV) 12/10/2019 12/09/2018, 02/03/2009 COVID-19 Vaccine (2022- season) 2022 12/08/2021, 03/29/2021, 12/26/2020, Additional history exists Diabetic Eye Exam 10/10/2023 10/09/2022, 08/20/2021 HbA1c 10/29/2023 04/30/2023, 08/2022, 03/19/2022, Additional history exists Mammogram 12/10/2023 12/09/2022, 08/2021, 12/06/2021, Additional history exists Albumin/Creatinine Ratio 04/30/2024 04/30/2023 GFR 06/08/2024 06/09/2023, 04/04, 09/05/2022, Additional history exists Pap Smear 01/27/2026 01/27/2023, 12/02, 10/15/2017, Additional history exists Colonoscopy 05/15/2027 05/14/2022, 05/01, 01/22/2017, Additional history exists Colorectal Cancer Screening 05/15/2027 Lipid Panel 09/06/2027 09/05/2022, 11/01, 05/26/2018, Additional history exists Cervical Cancer Screening 01/28/2028 HPV/Co-Test 01/28/2028 01/27/2023 DTaP,Tdap,and Td Vaccines (3 - Td or Tdap) 03/31/2028 03/31/2018, 10/16/2007 Zoster Vaccines Completed 03/23/2018, 09/30/2017 RETIRED - COLONOSCOPY-EVERY 5 YRS AGES 18-100 Discontinued 05/14/2022, 05/14/2022, 01/22/2017, Additional history exists Influenza Vaccine (FLU shot) Completed 12/25/2022, 11/26/2021, 11/26/2021, Additional history exists GARDASIL-HPV IMMUNIZATION SERIES Aged Out No longer eligible based on patient's age to complete this topic Hepatitis B Aged Out No longer eligi ble based on patient's age to complete this topic MENINGOCOCCAL (MENACTRA/MENVEO) Aged Out No longer eligible based on patient's age to complete this topic documented as of this encounter Medical Devices Not on filedocumented as of this encounter Visit Diagnoses Diagnosis Allergic rhinitis due to animal hair and dander- Primary Allergic rhinitis due to animal (cat) (dog) hair and dander documented in this encounter Care Teams Speech Therapist Early Intervention Relationship Specialty Start Date End Date Rama Reed MD [address] [place] [address] PCP - General Family Medicine 04/24/20 documented as of this encounter
--- OUTSIDE RECORDS SUMMARY | 2023-07-10 10:49 | External Medical Summary | Summary of Care ---
Author Name Unknown Organization [facility] Address [address] [facility] [place] [address] Phone [phone] Care Team Providers Care Neon Pumper Name Role Phone Rama Reed MD Primary Care Provid er Reason for Visit * Reason Comments Weight Management The pt stated she is here to follow up with weight managment Encounter Details Date Type Department Care Team (Late st Contact Info) Description 07/08/2023 9:00 AM EDT Office Visit Nutrition & Weight Management, [facility] [address] [place] [address] Gerri Kelly PA-C [address] [place] [address] Class 2 severe obesity due to excess calories with serious comorbidity and body mass index (BMI) of 39.0 to 39.9 in adult (HCC)* Allergies Active Allergy Reactions Criticality Noted Date [...] 500 MG PO TABS one daily 0 4 Active Calcium 500 MG Tablet Take 1 Tablet by mouth in the morning. 0 Active Magnesium 100 MG Tablet Take 1 Tablet by mouth in the morning. 0 Active Cholecalciferol (VITAMIN D3) 2000 units Capsule Take 2 Capsules by mouth in the morning. 30 Cap 5 9 Active Alive Womens 50+ Oral Tablet Chewable Take 2 tablets by mouth daily 0 1 Active traZODone HCl 100 MG Oral Tablet (Desyrel) Take 2 Tablets by mouth at bedtime. 0 Active CPAP every night at bedtime. 0 Active Docusate Sodium 100 MG Oral Capsule (Colace) Take 1 Capsule by mouth in the morning and 1 Capsule before bedtime. 0 2 Active ARIPiprazole 10 MG Oral Tablet (Abilify) Take 1 Tablet by mouth in the morning. 0 2 Active LORazepam 0.5 MG Oral Tablet (Ativan) Take 1 Tablet by mouth every 8 hours as needed for Anxiety. 0 2 Active Elderberry 500 MG Oral Capsule Take 1 Capsule by mouth in the morning. 0 Active hydrOXYzine Pamoate 25 MG Oral Capsule (Vistaril) 1 Capsule 3 times a day as needed. 0 2 Active [facility] w/Device KitIndications:Pred iabetes Check fasting blood sugar once a day. R73.03 1 Kit 0 3 Active OneTouch UltraSoft LancetsIndications: Prediabetes Check fasting blood sugar once a day. R73.03 100 Each 3 3 Active [facility] Ultra Control In Vitro SolutionIndications :Prediabetes Dx:R73.03 Test sugars once daily 100 Each 3 3 Active DULoxetine HCl 60 MG Oral Capsule Delayed Release Particles (Cymbalta) Take 1 Capsule by mouth in the morning. 0 3 Active Euflexxa 20 MG/2ML Intra-articular Solution Prefilled Syringe (Sodium Hyaluronate (Viscosup)) Inject 20 mg intra-articular ly into right knee every 7 days for 3 weeks 6 mL 0 3 Active Pantoprazole Sodium 20 MG Oral Tablet Delayed Release (Protonix) 1 Tablet. 0 3 Active Triamcinolone Acetonide 0.1 % External Cream (Aristocort)Indicat ions:Intertrigo,Kenrick h and nonspecific skin eruption Apply topically to affected area 2 times a day. To affected area. 80 g 5 3 Active Terbinafine HCl 1 % External Cream (LamISIL AT)Indications:Inte rtrigo Apply topically to affected area 2 times a day. To affected area. 42 g 1 3 Active Fremanezumab-vfrm 225 MG/1.5ML Subcutaneous Solution Prefilled Syringe (LifeWave)Indications: Migraine variant Inject 1.5 mL under the skin Every Month. 4.5 mL 1 3 Active Rizatriptan Benzoate 10 MG Oral Tablet (Maxalt) at onset of headache, may repeat in two hours. Up to two pills in 24 hours. 10 Tablet 3 4 Active Furosemide 20 MG Oral Tablet (Lasix)Indications: Edema of left lower extremity TAKE ONE TABLET BY MOUTH TWICE A DAY WITH POTASSIUM FOR FLUID RETENTION 180 Tablet 4 03/21/19 25 Active Pregabalin 200 MG Oral Capsule (Lyrica)Indications :Bone pain,Chronic back pain, unspecified back location, unspecified back pain laterality,Polyneur opathy in other diseases classified elsewhere (HCC),Displacement of lumbar intervertebral disc without myelopathy,Spinal stenosis of lumbar region without neurogenic claudication,Back disorder Take 1 Capsule by mouth in the morning and 1 Capsule before bedtime. 180 Capsule 4 Active Montelukast Sodium 10 MG Oral Tablet (Singulair) TAKE ONE TABLET BY MOUTH EVERY DAY IN THE EVENING 90 Tablet 4 03/30/19 25 Active Potassium Chloride Darlin ER 10 MEQ Oral Tablet Extended ReleaseIndications: Edema of left lower extremity TAKE ONE TABLET BY MOUTH EVERY MORNING 90 Tablet 4 03/30/19 25 Active Warfarin Sodium 5 MG Oral Tablet (Coumadin)Indicatio ns:History of venous thrombosis,Anticoag ulant long-term use Take 1-2 Tablets by mouth daily. OR DIRECTED BY COUMADIN CLINIC 200 Tablet 4 Active Solifenacin Succinate 10 MG Oral Tablet (VESIcare) Take 1 Tablet by mouth in the morning. 90 Tablet 3 4 Active hydrOXYzine HCl 25 MG Oral TabletIndications:T inea corporis Take 1 Tablet by mouth 3 times a day as needed for Itching. 40 Tablet 2 4 Active traMADol HCl 50 MG Oral Tablet (Ultram) Take 1 Tablet by mouth every 6 hours as needed. 0 Active metFORMIN HCl ER 500 MG Oral Tablet Extended Release 24 Hour (Glucophage XR)Indications:Type 2 diabetes mellitus without complication, without long-term current use of insulin ([facility]) Take 1 tablet by mouth at bedtime for 7 days, then take 2 tablets at bedtime for 7 days, then take 3 tablets at bedtime for 7 days then take 4 tablets at bedtime. 70 Tablet 0 4 Active Clotrimazole 1 % External Cream (Lotrimin)Indicatio ns:Tinea corporis APPLY TOPICALLY TO AFFECTED AREA 2 TIMES A DAY FOR 14 DAYS. APPLY TO LEFT ARM 120 g 1 4 Active OneTouch Verio In Vitro Strip (Glucose Blood) CHECK FASTING BLOOD SUGAR ONCE DAILY 100 Strip 3 4 Active OneTouch Delica Plus [id number] CHECK FASTING BLOOD SUGAR ONCE DAILY 100 Each 3 4 Active Euflexxa 20 MG/2ML Intra-articular Solution Prefilled Syringe (Sodium Hyaluronate (Viscosup)) Inject 20 mg intra-articular ly into bilateral knee joints every week for 3 doses. 12 mL 0 4 Active Sulfamethoxazole-Tr imethoprim 800-160 MG Oral Tablet (Bactrim DS) 0 4 Active Ozempic (0.25 or 0.5 MG/DOSE) 2 MG/3ML Solution Pen-injector (Semaglutide(0.25 or 0.5MG/DOS))Indicati ons:Class 2 severe obesity due to excess calories with serious comorbidity and body mass index (BMI) of 39.0 to 39.9 in adult (HCC) Inject 0.25mg under the skin once weekly for 4 weeks then increase to 0.5mg under the skin once weekly thereafter 9 mL 1 4 Active Trulicity 1.5 MG/0.5ML Subcutaneous Solution Pen-injector (Dulaglutide) Inject 1.5 mg under the skin once a week. 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 Often true 12/26/19 Within the past 12 months, t he [...] on file documented as of this encounter Last Filed Vital Signs Vital Sign Reading Time Taken Comments Blood Pressure 130/80 07/08/2023 8:57 AM EDT Pulse 62 07/08/2023 8:57 AM EDT Temperature 36.4 C (97.6 F) 07/08/2023 8 :57 AM EDT Respiratory Rate - - Oxygen Saturation 94% 07/08/2023 8:5 7 AM EDT Inhaled Oxygen Concentration - - Weight 122.7 kg (270 lb 9.6 oz) 07/08/2023 8:57 AM EDT The pt has a brace on her LLE Height - - Body Mass Index 39.96 04/30/2023 9:59 AM EST documented in this encounter Progress Notes * Gerri Kelly PA-C - 07/08/2023 9:06 AM EDT [facility] Note Nursing Notes: Samir Quintana LPN 07/08/23 0858 Signed Chief Complaint Patient presents with Weight Management The pt stated she is here to follow up with weight managment Jewell Mckinney presents in follow up to the comprehensive weight management clinic. The patient is a 58 year old female Wt Readings from Last 6 Encounters: 07/08/23 122.7 kg (270 lb 9.6 oz) 05/23/23 122.1 kg (269 lb 1.6 oz) 04/30/23 122.5 kg (270 lb) 04/16/23 122 kg (269 lb) 02/21/23 122.1 kg (269 lb 1.6 oz) 02/10/23 124.5 kg (274 lb 8 oz) Patient is receiving ongoing education regarding dietary and physical modifications for weight loss. - Initial clinic visit 09/19/22. Weight 276 lbs Height 69.5" Body mass index is 40.26 kg/m. - Today's weight: 270 lbs - Total weight loss of -6 since initial weight in clinic - Patient's last follow up with GI/Nutrition clinic was on 01/17/23. 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 -Unsure of how to define healthy diet/lifestyle Today's Visit 09/19/22 - Overall goal: be healthier - Wt hx: has always struggled - Highest wt as adult: 285lbs - August 2022 - Lowest wt as adult: 145lbs - Barriers: "I overeat when I'm depressed", lack of exercise Previous Weight Management Interventions: The patient has tried weight loss in the past without significant long-term success. -lost 20lbs last year with swapping out slim fast shakes for meals Patient Active Problem List Diagnosis Code Moderate episode of recurrent major depressive disorder (HCC) F33.1 Mild persistent asthma without complication J45.30 [facility] current use of anticoagulant therapy Z79.01 Insulin resistance E88.819 Chronic back pain M54.9, G89.29 Vitamin D deficiency E55.9 Gastroesophageal reflux disease without esophagitis K21.9 Migraine without aura and without status migrainosus, not intractable G43.009 History of DVT (deep vein thrombosis) Z86.718 Iron deficiency anemia due to chronic blood loss D50.0 Polyneuropathy G62.9 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 Dysfunction of left eustachian tube H69.92 Allergic rhinitis J30.9 RAYMOND on CPAP G47.33 Migraine variant G43.809 Morbid obesity with body mass index of 40.0-44.9 in adult (HCC) E66.01, Z68.41 Generalized anxiety disorder F41.1 Non-pressure chronic ulcer of other part of left foot limited to breakdown of skin ([facility]) L97.521 Iliotibial band syndrome M76.30 Tear of meniscus of knee S83.209A DJD (degenerative joint disease) of knee M17.9 Congenital pes planus Q66.50 Primary osteoarthritis of both first carpometacarpal joints M18.0 Lateral epicondylitis of right elbow M77.11 Lower extremity ulceration ([facility]) L97.909 Sacroiliitis ([facility]) M46.1 Chronic embolism and thrombosis of unspecified deep veins of left lower extremity ([facility]) I82.502 Polyneuropathy in other diseases classified elsewhere ([facility]) G63 Recurrent major depressive disorder ([facility]) F33.9 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 All other systems reviewed and are negative. Current Medications: Current Outpatient Medications Medication Sig Dispense Refill VITAMIN C 500 MG PO TABS one daily Calcium 500 MG Tablet Take 1 Tablet by mouth in the morning. Magnesium 100 MG Tablet Take 1 Tablet by mouth in the morning. Cholecalciferol (VITAMIN D3) 2000 units Capsule Take 2 Capsules by mouth in the morning. 30 Cap 5 Alive Womens 50+ Oral Tablet Chewable Take 2 tablets by mouth daily traZODone HCl 100 MG Oral Tablet (Desyrel) Take 2 Tablets by mouth at bedtime. CPAP every night at bedtime. Docusate Sodium 100 MG Oral Capsule (Colace) Take 1 Capsule by mouth in the morning and 1 Capsule before bedtime. ARIPiprazole 10 MG Oral Tablet (Abilify) Take 1 Tablet by mouth in the morning. LORazepam 0.5 MG Oral Tablet (Ativan) Take 1 Tablet by mouth every 8 hours as needed for Anxiety. Elderberry 500 MG Oral Capsule Take 1 Capsule by mouth in the morning. hydrOXYzine Pamoate 25 MG Oral Capsule (Vistaril) 1 Capsule 3 times a day as needed. OneTouch Verio w/Device Kit Check fasting blood sugar once a day. R73.03 1 Kit 0 OneTouch UltraSoft Lancets Check fasting blood sugar once a day. R73.03 100 Each 3 OneTouch Ultra Control In Vitro Solution Dx:R73.03 Test sugars once daily 100 Each 3 DULoxetine HCl 60 MG Oral Capsule Delayed Release Particles (Cymbalta) Take 1 Capsule by mouth in the morning. Euflexxa 20 MG/2ML Intra-articular Solution Prefilled Syringe (Sodium Hyaluronate (Viscosup)) Inject 20 mg intra-articularly into right knee every 7 days for 3 weeks 6 mL 0 Pantoprazole Sodium 20 MG Oral Tablet Delayed Release (Protonix) 1 Tablet. Triamcinolone Acetonide 0.1 % External Cream (Aristocort) Apply topically to affected area 2 times a day. To affected area. 80 g 5 Terbinafine HCl 1 % External Cream (LamISIL AT) Apply topically to affected area 2 times a day. To affected area. 42 g 1 Fremanezumab-vfrm 225 MG/1.5ML Subcutaneous Solution Prefilled Syringe (LifeWave) Inject 1.5 mL under the skin Every Month. 4.5 mL 1 Rizatriptan Benzoate 10 MG Oral Tablet (Maxalt) at onset of headache, may repeat in two hours. Up to two pills in 24 hours. 10 Tablet 3 Furosemide 20 MG Oral Tablet (Lasix) TAKE ONE TABLET BY MOUTH TWICE A DAY WITH POTASSIUM FOR FLUID RETENTION 180 Tablet 1 Pregabalin 200 MG Oral Capsule (Lyrica) Take 1 Capsule by mouth in the morning and 1 Capsule beforebedtime. 180 Capsule 1 Montelukast Sodium 10 MG Oral Tablet (Singulair) TAKE ONE TABLET BY MOUTH EVERY DAY IN THE EVENING 90 Tablet 1 Potassium Chloride Darlin ER 10 MEQ Oral Tablet Extended Release TAKE ONE TABLET BY MOUTH EVERY MORNING 90 Tablet 1 Warfarin Sodium 5 MG Oral Tablet (Coumadin) Take 1-2 Tablets by mouth daily. OR DIRECTED BY COUMADIN CLINIC 200 Tablet 1 Solifenacin Succinate 10 MG Oral Tablet (VESIcare) Take 1 Tablet by mouth in the morning. 90 Tablet3 hydrOXYzine HCl 25 MG Oral Tablet Take 1 Tablet by mouth 3 times a day as needed for Itching. 40 Tablet 2 traMADol HCl 50 MG Oral Tablet (Ultram) Take 1 Tablet by mouth every 6 hours as needed. metFORMIN HCl ER 500 MG Oral Tablet Extended Release 24 Hour (Glucophage XR) Take 1 tablet by mouthat bedtime for 7 days, then take 2 tablets at bedtime for 7 days, then take 3 tablets at bedtime for 7 days then take 4 tablets at bedtime. 70 Tablet 0 Clotrimazole 1 % External Cream (Lotrimin) APPLY TOPICALLY TO AFFECTED AREA 2 TIMES A DAY FOR 14 DAYS. APPLY TO LEFT ARM 120 g 1 OneTouch Verio In Vitro Strip (Glucose Blood) CHECK FASTING BLOOD SUGAR ONCE DAILY 100 Strip 3 OneTouch Delica Plus [id number] CHECK FASTING BLOOD SUGAR ONCE DAILY 100 Each 3 Euflexxa 20 MG/2ML Intra-articular Solution Prefilled Syringe (Sodium Hyaluronate (Viscosup)) Inject 20 mg intra-articularly into bilateral knee joints every week for 3 doses. 12 mL 0 Sulfamethoxazole-Trimethoprim 800-160 MG Oral Tablet (Bactrim DS) Trulicity 1.5 MG/0.5ML Subcutaneous Solution Pen-injector (Dulaglutide) Inject 1.5 mg under the skin once a week. (Patient not taking: Reported on 05/23/2023) 2 mL 3 Current Facility-Administered Medications Medication Dose Route Frequency Provider Last Rate Last Admin hEParin, bupivacaine (Sensorcaine) 30 mL, methylPREDNISolone sodium succ (SOLU- Medrol) 125 mg, gentamicin 80 mg, sodium bicarbonate 4 mEq bladder instillation Intravesical Q Week Enrique Trotter MD Given at 08/09/22 1054 Water intake: yes Prescribed diet: 5314-7685 Calorie Controlled Current diet: Breakfast-- 1c coffee, 2 c of raisin bran with coconut milk Snack-- skips OR granola bar Lunch-- homemade pizza - 2 slices chicken fingers, 1c green beans Snack-- skips Dinner-- homemade pizza - 2 slices chicken fingers, 2c green beans Snack-- skips Drinks-- water Meals Away from Home-- none Food logs: No Type of exercise: ADL and limited by foot wounds - in a boot; walking some down town Weight loss Pharmacotherapy: no BP 130/80 | Pulse 62 | Temp 36.4 C (97.6 F) | Wt 122.7 kg (270 lb 9.6 oz) Comment: The pt has abrace on her LLE | LMP 12/09/2019 (Approximate) | SpO2 94% | BMI 39.96 kg/m | BSA 2.44 m PHYSICAL EXAMINATION: General: Patient awake alert and oriented. Patient is well appearing and in no acute distress. Skin: No rashes. HEENT: Head is atraumatic, normocephalic. EOMs intact Abdomen: Obese Neuro: No focal deficits Psych: Appropriate mood and affect. Assessment and Plan: Abnormal weight gain / Body mass index is 39.96 kg/m. / Morbid obesity : - Would like to proceed with possible medication use - Barriers are consistency. - Motivators are feeling better overall, avoiding/reducing co-morbid conditions. - The patient was encouraged to to avoid all fruit juices and regular sodas, consume at least 64 ounces of water per day, keep food logs and get weighed on a weekly basis. They were encouraged to increase physical activity as prescribed. - Handouts regarding nutrition and physical activity were provided, as appropriate. 1. Keep a food log. If you bite it, write it! Apps like eEvent or Yoolink Calorie goal: 1500 2. Drink 48-64 ounces of non-caloric beverages per day. No fruit juices or regular soda Try crystal light, propel, zero calorie flavored water, plain water 3. Goal of 30 minutes of exercise 5 days per week (150 minutes per week--can be divided up however you would like) Aim for aerobic activity and muscle strengthening activities 4. Increase fruit and vegetable servings to 5-6 per day. 1/2 of your plate should be fruits and vegetables 5. Eat 100-200 calories within 1-2 hours of awakening, and every 4 - 6 hours while awake. (3 meals with snacks in between) Choose 100 calorie or less snacks, protein snacks 7. Weight yourself weekly and follow trend over time (day to day weight fluctuations can be discouraging) 8. Decrease starches like bread, pasta, cereal, potatoes and corn. Aim for of your plate Try substitutions like zoodles, lentil pasta, cauliflower mashed potatoes, whole grain foods, quinoa Limit junk/processed foods Chips, pretzels, cookies, cakes, sweets White bread/rolls/wraps/bagels, white rice 9. Increase protein to feel full longer (1/4 of your plate) Jewell was seen today for weight management. Diagnoses and all orders for this visit: Morbid obesity due to excess calories (HCC) -switch to Ozempic 0.25mg -diet overall is doing pretty well - eating consistently, adding vegetables, needs more protein -add exercise as tolerated - foot in boot currently -avoid wellbutrin - allergy (hairloss) -caution phentermine given mood Abnormal weight gain Insulin resistance -off metformin RAYMOND on CPAP -compliant Chronic embolism and thrombosis of unspecified deep veins of left lower extremity (HCC) -continue coumadin Gastroesophageal reflux disease without esophagitis -off PPI Recurrent major depressive disorder, in remission (HCC) -mood stable The patient agreed to try the plan as discussed and return in 3 months. They were encouraged to call or send a patient portal message in the meantime with any questions or concerns prior to their next clinic visit. I spent a total of 20 minutes on the date of service in preparation, delivery, and documentation ofthe care provided to Jewell Mckinney excluding any time spent in the performance of separatelybilled services. This included but was no limited to providing counseling about the benefits of weight loss, about their nutritional status, detailed explanations about calorie count, types of nutrients to choose, and composition of the meals. Motivational interview provided in order to prepare the patient to achieve future goals. Gerri Kelly PA-C documented in this encounter Nursing Notes * Samir Quintana LPN - 07/08/2023 8:56 AM EDT Chief Complaint Patient presents with Weight Management The pt stated she is here to follow up with weight managment documented in this encounter Plan of Treatment Upcoming Encounters Date Type Department Care Team (Late st Contact Info) Description 07/11/2023 8:00 AM EDT Nutrition Services Afshan, Arsalan Richardson [address] [address] Jaida Newell RDN [address] [place] [address] 08/04/2023 8:40 AM EDT Office Visit Neurology [facility] [place] [address] [place] [address] Cara Shell MD [address] [place] [address] 08/04/2023 9:45 AM EDT Immunization/Injecti on Allergy/Immunology [facility] [place] [address] [place], [place] [address] Christine, Nurse Allergy [facility] [address] [facility] [place] [address] 09/08/2023 9:20 AM EDT Office Visit Family Practice, [place] [address] [place] [phone] Rama Reed MD [address] [place] [address] 09/23/2023 10:00 AM EDT Nutrition Services Nutrition & Weight Management, [facility] [address] [facility] [address] Rosalba Montes RDN [address] [place] [address] 10/13/2023 11:00 AM EDT Nurse Only Ancillary Department, [place] [address] [place], [place] [phone] [place], Nurse [facility] [address] [place] [address] 10/14/2023 9:00 AM EDT Office Visit Urology, [facility] [address] [facility] [place] [address] Eliud Goodwin MD [address] [place] [address] 01/28/2024 9:20 AM EST Office Visit Nutrition & Weight Management, [facility] [address] [place] [address] Gerri Kelly PA-C [address] [place] [address] 04/16/2024 10:30 AM EST Office Visit [facility] [address] [place] [phone] Little Lino CRNP [address] [place] [address] Scheduled Procedures Name Priority Associated Diagnoses Date/Ti me COLONOSCOPY FLEXIBLE PROXIMAL DIAGNOSTIC Recall History of colon polyps Health Maintenance Due Date Last Done Comments Diabetic Foot Exam 05/23/1981 Cologuard 05/23/2008 Fecal Occult Blood Test 05/23/2008 Sigmoidoscopy 05/23/2008 Pneumococcal Vaccine: Pediatrics (0 to 5 Years) and At-Risk Patients (6 to 64 Years) (2 of 2 - PCV) 12/10/2019 12/09/2018, 02/03/2009 COVID-19 Vaccine ( season) 2022 12/08/2021, 03/29/2021, 12/26/2020, Additional history [...] as of this encounter Visit Diagnoses Diagnosis Class 2 severe obesity due to excess calories with serious comorbidity and body mass index (BMI) of 39.0 to 39.9 in adult (HCC)- Primary documented in this encounter Care Teams Neon Pumper Relationship Specialty Start Date End Date Rama Reed MD [address] [place] [address] PCP - General Family Medicine 04/24/20 documented as of this encounter
--- OUTSIDE RECORDS SUMMARY | 2023-07-10 10:49 | External Medical Summary | Summary of Care ---
Author Name Unknown Organization [facility] Address [address] [place] [address] Phone [phone] Care Team Providers Care Webbing Inspector Name Role Phone Rama Reed MD Primary Care Provid er Encounter Details Date Type Department Care Team (Late st Contact Info) Description 07/08/2023 Result Scan Unspecified Department <No scans attached> Allergies Active Allergy Reactions Criticality Noted Date [...] a day as needed. 0 01/31/2022 Active SalonBookrTouch Verio w/Device KitIndications:Predi abetes Check fasting blood sugar once a day. R73.03 1 Kit 0 03/15/2022 Active SalonBookrTouch UltraSoft LancetsIndications:P rediabetes Check fasting blood sugar once a day. 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 180 Capsule 1 03/31/2023 Active Montelukast Sodium 10 MG Oral Tablet (Singulair) TAKE ONE TABLET BY MOUTH EVERY DAY IN THE EVENING 90 Tablet 1 03/31/2023 5 Active Potassium Chloride Darlin ER [...] complication, without long-term current use of insulin ([facility]) Take 1 tablet by mouth at [...] LEFT ARM 120 g 1 06/05/2023 Active OneTouch Verio In Vitro Strip (Glucose Blood) CHECK FASTING BLOOD SUGAR ONCE DAILY 100 Strip 3 06/09/2023 Active SalonBookrTouch Delica Plus [id number] CHECK FASTING BLOOD SUGAR ONCE DAILY 100 [...] (BMI) of 39.0 to 39.9 in adult ([facility]) Inject 0.25mg under the skin once weekly [...] Chronic back pain 10/09/2011 Insulin resistance 08/26/2011 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 0 11/30/2009 [...] 07/20/2009 01/06/2014 Sprain, lumbosacral 07/20/2009 01/07/20 14 ocean transportation intermediary current use of ant icoagulant therapy 07/20/2009 11/30/2009 Overview: ICD-10 update of inactive term Postnasal drip 04/19/2009 11/30/2009 Backache 11/23/2007 01/06/2014 Abnormal mammogram 10/16/2007 11/06/201 4 Phlebitis and thrombophlebit is of other [...] mRNA, LNP-s, No Pre serve, 2-Dose Series (GlossyBox) 12/26/2020,06/29/2020,06/08/2020 PPD 01/02/2006 Pneumococcal Polysaccharide PPV23 (Pneumovax) [...] on file documented as of this encounter Plan of Treatment Upcoming Encounters Date Type Department Care Team (Latest Contact Info) Description 07/09/2023 6:30 AM EDT [facility] Call Center 58-60 [facility] [place] [address] [facility] 58 60 [facility] [place] [address] History of DVT (deep vein thrombosis)* 07/11/2023 8:00 AM EDT Nutrition Services Nutrition, [facility] [address] [facility] [place] [address] Jaida Newell, WILD 132 [facility] [place] [address] 07/15/2023 6:15 PM EDT Anticoagulation Pharmacy Call Center 58-60 [facility] [place] [address] [facility] 58 60 [facility] [place] [address] 08/04/2023 8:40 AM EDT Office Visit Neurology [facility] 200 [facility] [place] [address] Cara Shell MD 200 [facility] [place] [address] 08/04/2023 9:45 AM EDT Immunization/Injection Allergy/Immunolog y [facility] [place] [address] [place] [address] [place], Nurse Allergy [facility] 200 [facility] [place] [address] 09/08/2023 9:20 AM EDT Office Visit Family [facility] [address] [place] [phone] Rama Reed MD [address], [place] [phone] 09/23/2023 10:00 AM EDT Nutrition Services Nutrition & Weight Management, [facility] [address] [facility] [place] [address] Rosalba Montes RDN 132 [facility] [place] [address] 10/13/2023 11:00 AM EDT Nurse Only Ancillary Department, [place] [address] [place] [address] [place], Nurse [facility] [address] [place] [address] 10/14/2023 9:00 AM EDT Office Visit Urology, [facility] 132 [facility] [place] [address] Eliud Goodwin MD [address] [address] [place] [address] 01/28/2024 9:20 AM EST Office Visit Nutrition & Weight Management, [facility] [address] [facility] [place] [address] Gerri Kelly PA-C 132 [facility] [place] [address] 04/16/2024 10:30 AM EST Office Visit Sleep Disorders [facility] 132 [facility] [place] [phone] Little Lino CRNP 132 [facility] [place] [address] Scheduled Procedures Name Priority Associated Diagnoses Date/Ti [...] Not on filedocumented as of this encounter Procedures Procedure Name Priority Date/Time Associated Diagnosis Comments OUTSIDE LAB RESULTS 07/08/2023 documented in this encounter Results * OUTSIDE LAB RESULTS (07/08/2023) 07/08/2023 No Physician Data Unknown LABORATORY documented in this encounter Care Teams Webbing Inspector Relationship Specialty Start Date End Date Rama Reed MD [address] [place] [address] PCP - General Family Medicine 04/24/20 documented as of this encounter
--- OUTSIDE RECORDS SUMMARY | 2023-07-10 10:49 | External Medical Summary | Summary of Care ---
Author Name Unknown Organization [facility] Address [address] [facility] [address] Phone [phone] Care Team Providers Care Senior Consultant Name Role Phone Rama Reed MD Primary Care Provid er Reason for Visit * Reason Comments Dosage Adjustment Via Phone (anticoag Cl inic) Encounter Details Date Type Department Care Team (Latest Contact Info) Description 07/08/2023 6:30 AM EDT Anticoagulation Pharmacy Call Center 58-[address] [facility] [place] [address] [facility] [address] [facility] [address] History of DVT (deep vein thrombosis)* Allergies Active Allergy Reactions Criticality Noted Date [...] a day as needed. 0 01/31/2022 Active [employer] Verio w/Device KitIndications:Predi abetes Check fasting blood sugar once a day. R73.03 1 Kit 0 03/15/2022 Active [employer] SilicaTouch UltraSoft LancetsIndications:P rediabetes Check fasting blood sugar once a day. R73.03 100 Each 3 04/02/2022 Active [employer] SilicaTouch Ultra Control In Vitro SolutionIndications: Prediabetes Dx:R73.03 [...] LEFT ARM 120 g 1 06/05/2023 Active [employer] SilicaTouch Verio In Vitro Strip (Glucose Blood) CHECK FASTING BLOOD SUGAR ONCE DAILY 100 Strip 3 06/09/2023 Active [employer] 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 0 11/30/2009 [...] 07/20/2009 01/06/2014 Sprain, lumbosacral 07/20/2009 01/07/20 14 [facility] current use of ant icoagulant therapy 07/20/2009 [...] as of this encounter Progress Notes * Shell Orozco RPh - 07/08/2023 1:40 PM EDT Medication Therapy Disease Management - Anticoagulation Patient: Jewell Mckinney : 1965 [facility] (region specific) Contacts Type Contact Phone/Fax 07/08/2023 01:38 PM EDT Phone (Outgoing) Jewell Mckinney (Self) [phone] (M) Spoke to Patient Patient Current coumadin dosing: Current Warfarin Dose As of 07/08/2023 Warfarin maintenance plan: 15 mg (5 mg x 3) every Fri; 10 mg (5 mg x 2) all other days Patient prescribed Bactrim DS for 7 days. Which will necessitate a decrease in coumadin dosing while taking medication. Adjusted coumadin dosage: 5mg MWF; 10mg all other days (26.7% decrease) Patient should have INR rechecked as scheduled on 07/14 Please contact [facility] with any Nausea, Vomitting or Diarrhea as well as any bruising or bleeding. Spoke to patient and advised dosing and INR date as above. Patient verbalized understanding of above and had no further questions at this time. Shell Orozco Rph, Pharm.D. Clinical Pharmacist [facility] ([facility] (formerly Telepharmacy) [phone] 07/08/2023,1:40 PM * Tanika Villalpando irrigation foreman - 07/08/2023 8:18 AM EDT No new INR result for pt. LMOM to test and call in with result. Pt noted to be on bactrim, please advise. Thank you, Tanika Villalpando [employer] Attendant [facility]) [phone] 07/08/2023,8:19 AM documented in this encounter Plan of Treatment Upcoming Encounters Date Type Department Care Team (Late st Contact Info) Description 07/11/2023 8:00 AM EDT [facility] [address] [place] [address] Jaida Newell RDN [address] [place] [address] 08/04/2023 8:40 AM EDT Office Visit Neurology [facility] 200 [place] [address] Cara Shell MD 200 [place] [address] 08/04/2023 9:45 AM EDT Immunization/Injecti on Allergy/Immunology [facility] [address] [facility] [place] [address] [place] Nurse Allergy [address] [place] [address] 09/08/2023 9:20 AM EDT Office Visit Family Practice, [address] [address] Rama Reed MD [address] [place] [address] 09/23/2023 10:00 AM EDT Nutrition Services Nutrition & Weight Management, [facility] [address] [place] [address] Rosalba Montes RDN [address] [place] [address] 10/13/2023 11:00 AM EDT Nurse Only Ancillary Department, [place] [address] [place] [address] [place], Nurse Annual Wellness [address] [place] [address] 10/14/2023 9:00 AM EDT Office Visit Urology, [facility] [place] [address] Eliud Goodiwn MD [address] [place] [address] 01/28/2024 9:20 AM EST Office Visit Nutrition & Weight Management, [facility] 132 [facility] [place] [address] Gerri Kelly PA-C [facility] [place] [address] 04/16/2024 10:30 AM EST Office Visit Sleep Disorders Ctr [facility] 132 [facility] [place] [phone] Little Lino CRNP 132 [facility] [place] [address] Scheduled Procedures Name Priority Associated Diagnoses Date/Ti me COLONOSCOPY FLEXIBLE PROXIMAL DIAGNOSTIC Recall History of colon polyps Health Maintenance Due Date Last Done Comments Diabetic Foot Exam 05/23/1981 Cologuard 05/23/2008 Fecal Occult Blood Test 05/23/2008 Sigmoidoscopy 05/23/2008 Pneumococcal Vaccine: Pediatrics (0 to 5 Years) and At-Risk Patients (6 to 64 Years) (2 of 2 - PCV) 12/10/2019 12/09/2018, 02/03/2009 COVID-19 Vaccine (2022-24 season) 2022 12/08/2021, 03/29/2021, 12/26/2020, Additional history exists Diabetic Eye Exam 10/10/2023 10/09/2022, 08/20/2021 HbA1c 10/29/2023 04/30/2023, 07/0 08/2022, 03/19/2022, Additional history exists Mammogram 12/10/2023 12/09/2022, 100 08/2021, 12/06/2021, Additional history exists Albumin/Creatinine Ratio [...] as of this encounter Visit Diagnoses Diagnosis History of DVT (deep vein thrombosis)- Primary Personal history of venous thrombosis and embolism documented in this encounter Care Teams Senior Consultant Relationship Specialty Start Date End Date Rama Reed MD [address] [place] [address] PCP - General Family Medicine 04/24/20 documented as of this encounter
--- OUTSIDE RECORDS SUMMARY | 2023-07-10 10:49 | External Medical Summary | Summary of Care ---
Author Name Unknown Organization [facility] Address [address] [facility] [address] Phone [phone] Care Team Providers Care Line Camera Operator Name Role Phone Rama Reed MD Primary Care Provid er Reason for Visit * Reason Comments Dosage Adjustment Via Phone (anticoag Cl inic) Encounter Details Date Type Department Care Team (Latest Contact Info) Description 07/09/2023 6:30 AM EDT Anticoagulation Pharmacy Call Center 58[address] [place] [address] [facility] [address] [facility] [place] [address] History of DVT (deep vein thrombosis)* Allergies [...] as of this encounter (statuses as of 07/09/2023) Medications Medication Sig Dispensed Refills Start Date [...] a day as needed. 0 01/31/2022 Active [facility] [employer] Verio w/Device KitIndications:Predi abetes Check fasting blood sugar once a day. R73.03 1 Kit 0 03/15/2022 Active [facility] Response[facility] UltraSoft LancetsIndications:P rediabetes Check fasting blood sugar once a day. 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 0 11/30/2009 Mild persistent asthma without complication 10/01 Moderate episode of recurrent major depressive d isorder 08/20/2001 Generalized anxiety disorder documented as of this encounter (statuses as of 07/09/2023) Resolved Problems Problem Noted Date Diagnosed Date [...] 07/20/2009 01/06/2014 Sprain, lumbosacral 07/20/2009 01/07/20 14 applications engineering manager current use of ant icoagulant therapy 07/20/2009 [...] as of this encounter (statuses as of 07/09/2023) Immunizations Name Administration Dates Next Due COVID-19 [...] as of this encounter Progress Notes * Holly Millan RPh - 07/09/2023 9:44 AM EDT Images from the original note were not included. Medication Therapy Disease Management - Anticoagulation Patient: Jewell Mckinney | : 1965 Subjective Contacts Type Contact Phone/Fax 07/09/2023 12:40 PM EDT Phone (Outgoing) Jewell Mckinney (Self) [phone] (M) Left Message Patient-Reported Symptoms: Patient Findings Positives: Change in medications (Bactrim DS BID x 7 days - see comments) Comments: Per 07/08/23 [facility] encounter - dose of 5 mg MWF, 10 mg AOD while on bactrim ( 26.7% dose decrease from baseline). Will advise 7.5 mg today 07/08 due to INR of 1.9. Objective Current Warfarin Dose As of 07/09/2023 Warfarin maintenance plan: 15 mg (5 mg x 3) every Fri; 10 mg (5 mg x 2) all other days INR Result As of 07/09/2023 INR goal: 2.0-3.0 INR used for dosin.9 (07/08/2023) Assessment & Plan Warfarin Plan As of 07/09/2023 Full warfarin instructions: 07/08: 7.5 mg; 07/10: 5 mg; 07/13: 5 mg; Otherwise 15 mg every Fri; 10 mg all other days Next INR check: 07/15/2023 Repeat PT/INR in 1 week(s) Weekly dose: not changed - temporary dose decrease due to bactrim Additional Dosing Information: Description Home Machine Or [place] Bactrim DS 06/02/23-06/15/23 Carbamazepine started 05/23/23 Holly Millan RPh Clinical Pharmacist 07/09/2023, 9:44 AM documented in this encounter Plan of Treatment Upcoming Encounters Date Type Department Care Team (Late st Contact Info) Description 07/11/2023 8:00 AM EDT Nutrition Services Nutrition, [facility] [address] [place] [address] Jaida Newell RDN [address] [place] [address] 07/15/2023 6:15 PM EDT [facility] Pharmacy Call Center 58-60 [facility] [place] [address] [facility] [address] [facility] [address] 08/04/2023 8:40 AM EDT Office Visit Neurology [facility] [address] [place] [address] Cara Shell MD 200 [facility] [place] [address] 08/04/2023 9:45 AM EDT Immunization/Injection Allergy/Immunology [facility] [place] [address] [place] [address] [place], Nurse Allergy [facility] 200 [facility] [place] [address] 09/08/2023 9:20 AM EDT Office Visit Family Practice, [address] [phone] Rama Reed MD [address] [place] [address] 09/23/2023 10:00 AM EDT Nutrition Services Nutrition & Weight Management, [facility] [address] [place] [address] Rosalba Montes RDN [address] [place] [address] 10/13/2023 11:00 AM EDT Nurse Only Ancillary Department, [address] [facility] [place] [address] [place], Nurse Annual Wellness [address] [place] [address] 10/14/2023 9:00 AM EDT Office Visit Urology, [facility] 132 [facility] [place] [address] Eliud Goodwin MD [address] [place] [address] 01/28/2024 9:20 AM EST Office Visit Nutrition & Weight Management, [facility] 132 [facility] [place] [address] Gerri Kelly PA-C 132 [facility] [place] [address] 04/16/2024 10:30 AM EST Office Visit Sleep Disorders Ctr [facility] 132 [facility] [place] [phone] Little Lino CRNP 132 [facility] [place] [address] Scheduled Procedures Name Priority Associated Diagnoses Date/Ti me COLONOSCOPY FLEXIBLE PROXIMAL DIAGNOSTIC Recall History of colon polyps Health Maintenance Due Date Last Done Comments Diabetic Foot Exam 05/23/1981 Cologuard 05/23/2008 Fecal Occult Blood Test 05/23/2008 Sigmoidoscopy 05/23/2008 Pneumococcal Vaccine: Pediatrics (0 to 5 Years) and At-Risk Patients (6 to 64 Years) (2 of 2 - PCV) 12/10/2019 12/09/2018, 02/03/2009 COVID-19 Vaccine ( - 2022- season) 2022 12/08/2021, 03/29/2021, 12/26/2020, Additional history exists Diabetic Eye Exam 10/10/2023 10/09/2022, 08/20/2021 HbA1c 10/29/2023 04/30/2023, 0708/2022, 03/19/2022, Additional history exists Mammogram 12/10/2023 12/09/2022, [...] Name Priority Date/Time Associated Diagnosis Comments OUTSIDE LAB-PT/INR Routine 07/08/2023 documented in this encounter Results * OUTSIDE LAB-PT/INR (07/08/2023) INR-OUTSIDE LAB 1.9 [place] History Per Patient LABORATORY [facility] [address] [place] [address] documented in this encounter Visit Diagnoses Diagnosis History of DVT (deep vein thrombosis)- Primary Personal history of venous thrombosis and embolism documented in this encounter Care Teams Line Camera Operator Relationship Specialty Start Date End Date Rama Reed MD [address] [facility] [phone] PCP - General Family Medicine 04/24/20 documented as of this encounter"
--- OUTSIDE RECORDS SUMMARY | 2023-07-10 10:50 | External Medical Summary | Summary of Care ---
Author Name Unknown Organization [facility] Address [address] [facility] [address] Phone [phone] Care Team Providers Care Religious Education Teacher Name Role Phone Rama Reed MD Primary Care Provid er Reason for Visit * Reason Comments Dosage Adjustment Via Phone (anticoag Cl inic) Encounter Details Date Type Department Care Team (Latest Contact Info) Description 06/30/2023 6:15 PM EDT Anticoagulation Pharmacy Call Center [phone] [facility] [place] [address] [facility] 58 60 [facility] [place] [address] History of DVT (deep vein thrombosis)* Allergies [...] as of this encounter (statuses as of 06/30/2023) Medications Medication Sig Dispensed Refills Start Date [...] Tablet (Ativan) Take 1 Tablet by mouth in the morning and 1 Tablet at noon and 1 Tablet before bedtime. 0 11/22/2021 Active Elderberry 500 MG Oral Capsule Take 1 Capsule by mouth in the morning. 0 Active hydrOXYzine Pamoate 25 MG Oral Capsule (Vistaril) 1 Capsule 3 times a day as needed. 0 01/31/2022 Active Skinfix Verio w/Device KitIndications:Predi abetes Check fasting blood sugar once a day. R73.03 1 Kit 0 03/15/2022 Active BrandtreeTouch UltraSoft LancetsIndications:P rediabetes Check fasting blood sugar once a day. R73.03 100 Each 3 04/02/2022 Active BrandtreeTouch Ultra Control In Vitro SolutionIndications: Prediabetes Dx:R73.03 [...] 3 weeks 6 mL 0 12/23/2022 Active Additional Information Patient not taking.Reported on 05/23/2023 Pantoprazole Sodium 20 MG Oral Tablet Delayed [...] Every Month. 4.5 mL 1 01/29/2023 Active Trulicity 1.5 MG/0.5ML Subcutaneous Solution Pen-injector (Dulaglutide) Inject 1.5 mg under the skin once a week. 2 mL 3 02/21/2023 Active Additional Information Patient not taking.Reported on 05/23/2023 Rizatriptan Benzoate 10 MG Oral Tablet (Maxalt) [...] ONCE DAILY 100 Strip 3 06/09/2023 Active OneTouch Delica Plus [id number] CHECK FASTING BLOOD SUGAR ONCE DAILY 100 Each 3 06/09/2023 Active Euflexxa 20 MG/2ML Intra-articular Solution Prefilled Syringe (Sodium Hyaluronate (Viscosup)) Inject 20 mg intra-articularly into bilateral knee joints every week for 3 doses. 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 0 11/30/2009 Mild persistent asthma without complication 10/01 Moderate episode of recurrent major depressive d isorder 08/20/2001 Generalized anxiety disorder documented as of this encounter (statuses as of 06/30/2023) Resolved Problems Problem Noted Date Diagnosed Date [...] 07/20/2009 01/06/2014 Sprain, lumbosacral 07/20/2009 01/07/20 14 exterminator termite current use of ant icoagulant therapy 07/20/2009 [...] as of this encounter (statuses as of 06/30/2023) Immunizations Name Administration Dates Next Due COVID-19 [...] Influenza, Split, I IV3, With Preserve, Inj 10/16/2016,12/07/2013,11/24/2012,12/01,11/13/2010,11/28/2009,02/04/20,01/01/2008,01/12/2007,01/02/2006 11/13/2010 TDAP (age 10 and older)(Boostrix) 03/31/2018 [...] as of this encounter Progress Notes * Joan Saldivar, environmental protection forester - 06/30/2023 11:30 AM EDT Contacts Type Contact Phone/Fax 06/30/2023 09:42 AM EDT Phone (Incoming) Jewell Mckinney (Self) [phone] (M) 06/30/2023 11:29 AM EDT Phone (Outgoing) Jewell Mckinney (Self) [phone] (M) Left Message Subjective Advised patient to contact Anticoagulation Clinic if any unusual bruising or bleeding, recent illness, changes in medication, or questions/concerns. PT/INR results, Coumadin dose instructions, and next PT/INR date communicated as noted by Pharmacist: Yes CHIKA ESCOBAR Tech 06/30/2023, 11:30 AM * Shell Orozco RPh - 06/30/2023 11:25 AM EDT Images from the original note were not included. Coumadin Clinic (region specific) Objective Current Warfarin Dose As of 06/30/2023 Warfarin maintenance plan: 10 mg (5 mg x 2) every day INR Result As of 06/30/2023 INR goal: 2.0-3.0 INR used for dosin.2 (06/30/2023) Assessment & Plan Warfarin Plan As of 06/30/2023 Full warfarin instructions: 06/29: 20 mg; Otherwise 15 mg every Fri; 10 mg all other days Next INR check: 07/07/2023 Repeat PT/INR in 1 week(s) Weekly dose: increased Additional Dosing Information: Description Home Machine Or [place] Bactrim DS 06/02/23-06/15/23 Carbamazepine started 05/23/23 Tech to contact patient with dose instructions as noted. Shell Orozco RPh 06/30/2023, 11:25 AM * Jewell Gilliam environmental protection forester - 06/30/2023 9:42 AM EDT Caller's name: Jewell Preferred call back number(OFFICE NUMBER FOR ): [phone] Reason for call: Pt calling in her inr for today 06/30/23. INR=1.2 Thank you, Jewell Gilliam Television News Reporter [facility] 06/30/2023,9:40 AM documented in this encounter Plan of Treatment Upcoming Encounters Date Type Department Care Team (Latest Contact Info) Description 07/01/2023 6:30 AM EDT Anticoagulation Pharmacy Call Center [phone] [facility] [place] [address] [facility], [facility] 58 60 [facility] [place] [address] History of DVT (deep vein thrombosis)* 07/03/2023 9:00 AM EDT Immunization/Injection Allergy/Immunolog y [facility] [address] [place] [address] Christine, Nurse Allergy [facility] [address] [facility] [place] [address] 07/08/2023 9:00 AM EDT Office Visit Nutrition & Weight Management, [facility] [address] [place] [address] Gerri Kelly PA-C [address] [facility] [place] [address] 07/11/2023 8:00 AM EDT Nutrition Services Nutrition, [facility] [place] [address] Jaida Newell RDN [address] [place] [address] 09/08/2023 9:20 AM EDT [address] [phone] Rama Reed MD [address] [place] [address] 09/23/2023 10:00 AM EDT Nutrition Services Nutrition & Weight Management, [facility] 132 [facility] [place] [address] Rosalba Montes RDN 132 [place] [address] 09/25/2023 8:40 AM EDT Office Visit Neurology [facility] [address] [place] [address] Cara Shell MD 200 [place] [address] 10/13/2023 11:00 AM EDT Nurse Only Ancillary Department, [place] [address] [place] [address] [place], Nurse Annual Wellness [address] [place] [address] 10/14/2023 9:00 AM EDT Office Visit Urology, [facility] 132 [place] [address] Eliud Goodwin MD [address] [place] [address] [place] [address] 04/16/2024 10:30 AM EST Office Visit Sleep Disorders Ctr [facility] 132 [facility] [place] [phone] Little Lino CRNP 132 [facility] [place] [address] Scheduled Procedures Name Priority Associated Diagnoses Date/Ti [...] Date/Time Associated Diagnosis Comments OUTSIDE LAB-PT/INR Routine 06/30/2023 documented in this encounter Results * OUTSIDE LAB-PT/INR (06/30/2023) INR-OUTSIDE LAB 1.2 CANUTE History Per Patient LABORATORY [facility] [address] [place] [address] documented in this encounter Visit Diagnoses Diagnosis History of DVT (deep vein thrombosis)- Primary Personal history of venous thrombosis and embolism History of DVT (deep vein thrombosis)- Primary Personal history of venous thrombosis and embolism documented in this encounter Care Teams Religious Education Teacher Relationship Specialty Start Date End Date Rama Reed MD [address] [place] [address] PCP - General Family Medicine 04/24/20 documented as of this encounter
--- OUTSIDE RECORDS SUMMARY | 2023-07-10 10:50 | External Medical Summary | Summary of Care ---
Author Name Unknown Organization [facility] Address [address] [place] [address] Phone [phone] Care Team Providers Care Liner Man Name Role Phone Rama Reed MD Primary Care Provid er Reason for Visit * Reason Onset Date Comments Other 07/07/2023 Encounter Details Date Type Department Care Team (Late st Contact Info) Description 07/07/2023 Telephone Pharmacy, [facility] Marquez [address] [place] [place] [address] [facility] 58 60 [facility] [address] Other Allergies Active Allergy Reactions Criticality Noted Date Comments Aspirin 06/11/2022 Buspirone 08/18/2020 Sexual side effects. Doxycycline Hives High 05/01/2023 Enoxaparin Rash 06/24/2016 Hydrocortisone Low 07/08/2022 Other reaction(s): Rash Hydrodiuril Rash 05/29/2009 Hydroquinone 01/15/2019 Nylon sutures Cephalexin 10/24/2020 Rash Naproxen 10/18/2019 Omeprazole 10/18/2019 Pantoprazole Diarrhea 09/16/2022 Penicillins 01/21/2001 rash Bupropion 08/18/2020 Hair loss documented as of this encounter (statuses as of 07/07/2023) Medications Medication Sig Dispensed Refills Start Date [...] a day as needed. 0 01/31/2022 Active Health GorillaTouch Verio w/Device KitIndications:Predi abetes Check fasting blood sugar once a day. R73.03 1 Kit 0 03/15/2022 Active Health GorillaTouch UltraSoft LancetsIndications:P rediabetes Check fasting blood sugar once a day. R73.03 100 Each 3 04/02/2022 Active Health GorillaTouch Ultra Control In Vitro SolutionIndications: Prediabetes Dx:R73.03 [...] Strip 3 06/09/2023 Active OneTouch Delica Plus [id number] CHECK FASTING BLOOD SUGAR ONCE DAILY 100 [...] as of this encounter (statuses as of 07/07/2023) Active Problems Problem Noted Date Diagnosed Date [...] Chronic back pain 10/09/2011 Insulin resistance 08/26/2011 long-term current use of anticoagulant therapy 0 11/30/2009 Mild persistent asthma without complication 10/01 Moderate episode of recurrent major depressive d isorder 08/20/2001 Generalized anxiety disorder documented as of this encounter (statuses as of 07/07/2023) Resolved Problems Problem Noted Date Diagnosed Date [...] 07/20/2009 01/06/2014 Sprain, lumbosacral 07/20/2009 01/07/20 14 roasterman current use of ant icoagulant therapy 07/20/2009 [...] as of this encounter (statuses as of 07/07/2023) Immunizations Name Administration Dates Next Due COVID-19 mRNA, LNP-s, No Pre serve, 2-Dose Series (Priccut) 12/26/2020,06/29/2020,06/08/2020 PPD 01/02/2006 Pneumococcal Polysaccharide PPV23 (Pneumovax) [...] on file documented as of this encounter Miscellaneous Notes * Telephone Encounter - Shell Orozco [facility] - 07/07/2023 2:13 PM EDT Noted, INR drawn today but not yet in chart. [facility] will address Bactrim during call tomorrow. Shell Orozco [facility], Pharm.D. Clinical Pharmacist [facility] ([facility]) (formerly Telepharmacy) [phone] 07/07/2023,2:13 PM * Telephone Encounter - Jey Montana CPhT - 07/07/2023 1:59 PM EDT Caller's name: Destini Padilla call back number(OFFICE NUMBER FOR ): [phone] Reason for call: Call from [facility] at [facility], pt is going on RX Bactrim for infection Thank you, Jey Montana CPhT Powder Mill Operator [facility] 07/07/2023,1:59 PM documented in this encounter Plan of Treatment Upcoming Encounters Date Type Department Care Team (Late st Contact Info) Description 07/08/2023 6:30 AM EDT Anticoagulation Pharmacy Call Center 58[address]60 [facility] [place] [address] [facility] 58 60 [facility] [place] [address] 07/08/2023 9:00 AM EDT Office Visit Nutrition & Weight Management, [facility] [address] [place] [address] Gerri Kelly PA-C [address] [place] [address] 07/11/2023 8:00 AM EDT Nutrition Services Nutrition, [facility] [address] [place] [address] Jaida Newell RDN 132 [place] [address] 08/04/2023 8:40 AM EDT Office Visit Neurology [facility] [address] [place], [place] [address] Cara Shell MD [address] [place] [address] 08/04/2023 9:45 AM EDT Immunization/Injection Allergy/Immunology [facility] [address] [place], [place] [address] [place], Nurse Allergy [facility] 200 [facility] [place] [address] 09/08/2023 9:20 AM EDT Office Visit Family Practice, [place] [address] [place] [phone] Rama Reed MD [address] [place] [address] 09/23/2023 10:00 AM EDT Nutrition Services Nutrition & Weight Management, [facility] 132 [place] [address] Rosalba Montes RDN 132 [place] [address] 10/13/2023 11:00 AM EDT Nurse Only Ancillary Department, [place] [address] [place] [address] [place], Nurse Annual Wellness [address] [place] [address] 10/14/2023 9:00 AM EDT Office Visit Urology, [facility] 132 [place] [address] Eliud Goodwin MD [address] [place] [address] 04/16/2024 10:30 AM EST Office Visit Sleep Disorders Ctr [facility] [address] [place] [phone] Little Lino CRNP [address] [place] [address] Scheduled Procedures Name Priority Associated Diagnoses Date/Ti [...] 03/19/2022, Additional history exists Mammogram 12/10/2023 12/09/2022, 10/0 08/2021, 12/06/2021, Additional history exists Albumin/Creatinine Ratio [...] Not on filedocumented as of this encounter Care Teams Liner Man Relationship Specialty Start Date End Date Rama Reed MD [address] [place] [address] PCP - General Family Medicine 04/24/20 documented as of this encounter
--- OUTSIDE RECORDS SUMMARY | 2023-07-10 10:50 | External Medical Summary | Summary of Care ---
Author Name Unknown Organization [facility] Address [address] [place] [address] Phone [phone] Care Team Providers Care Firewall Security Engineer Name Role Phone Rama Reed MD Primary Care Provid er Reason for Visit * Reason Onset Date Comments Allergy Injection 07/03/2023 Encounter Details Date Type Department Care Team (Late st Contact Info) Description 07/03/2023 9:00 AM EDT Immunization/I njection Allergy/Immunology [facility] [address] [place] [address] [place], Nurse Allergy [facility] 200 [facility] [place] [address] Allergic rhinitis due to pollen, unspecified seasonality* Allergies Active Allergy Reactions Criticality Noted Date Comments Aspirin 06/11/2022 Buspirone 08/18/2020 Sexual side effects. Doxycycline Hives High 05/01/2023 Enoxaparin Rash 06/24/2016 Hydrocortisone Low 07/08/2022 Other reaction(s): Rash Hydrodiuril Rash 05/29/2009 Hydroquinone 01/15/2019 Nylon sutures Cephalexin 10/24/2020 Rash Naproxen 10/18/2019 Omeprazole 10/18/2019 Pantoprazole Diarrhea 09/16/2022 Penicillins 01/21/2001 rash Bupropion 08/18/2020 Hair loss documented as of this encounter (statuses as of 07/03/2023) Medications Medication Sig Dispensed Refills Start Date [...] a day as needed. 0 01/31/2022 Active CombineNet Verio w/Device KitIndications:Predi abetes Check fasting blood sugar once a day. R73.03 1 Kit 0 03/15/2022 Active DekkoTouch UltraSoft LancetsIndications:P rediabetes Check fasting blood sugar once a day. 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 0 11/30/2009 Mild persistent asthma without complication 10/01 Moderate episode of recurrent major depressive d isorder 08/20/2001 Generalized anxiety disorder documented as of this encounter (statuses as of 07/03/2023) Resolved Problems Problem Noted Date Diagnosed Date [...] 07/20/2009 01/06/2014 Sprain, lumbosacral 07/20/2009 01/07/20 14 detention current use of ant icoagulant therapy 07/20/2009 [...] as of this encounter (statuses as of 07/03/2023) Immunizations Name Administration Dates Next Due COVID-19 [...] as of this encounter Progress Notes * Britney Espinosa LPN - 07/03/2023 8:18 AM EDT Pre-injection Questionnaire Patient identified by stating name and birthdate: Yes 1. Antihistamines taken prior to injection? yes (If no, may offer the patient Benadryl at 0.5mg/kg rounded to nearest 12.5mg) 2. Have you had increased asthma symptoms (chest tightness, wheezing, coughing, shortness of breath) in the past week? No 3. Have you had allergy symptoms,a cold, respiratory tract infection,fever or flu-like symptoms in the past week? No 4. Did you have any increased allergy or asthma symptoms, hives, generalized itching within 12 hours of receiving your last injection or swelling that persisted in the next day? No 5. Are you on any new medications or eye drops? No 6. Are you or have been diagnosed with a new medical condition? No Today's peak flow - LMP 12/09/2019 (Approximate) *Allergy Injection documentation located in Allergy Injections CPSL Flowsheet* documented in this encounter Plan of Treatment Upcoming Encounters Date Type Department Care Team (Late st Contact Info) Description 07/08/2023 6:30 AM EDT Anticoagulation Pharmacy Call Center 58-60 [facility] [place] [address] [facility] 58 60 [facility] [place] [address] 07/08/2023 9:00 AM EDT Office Visit Nutrition & Weight Management, [facility] [address] [place] [address] Gerri Kelly PA-C [address] [place] [address] 07/11/2023 8:00 AM EDT Nutrition Services Nutrition, [facility] [address] [place] [address] Jaida Newell RDN [address] [place] [address] 08/04/2023 8:40 AM EDT Office Visit Neurology [facility] [address] [place] [address] Cara Shell MD [address] [place] [address] 08/04/2023 9:45 AM EDT Immunization/Injection Allergy/Immunology [facility] [place] [address] [place] [address] [place], Nurse Allergy [facility] 200 [facility] [place] [address] 09/08/2023 9:20 AM EDT Office Visit Family Practice, [place] [address] [place] [address] Rama Reed MD [address] [place] [address] 09/23/2023 10:00 AM EDT Nutrition Services Nutrition & Weight Management, [facility] 132 [facility] [place] [address] Rosalba Montes RDN 132 [place] [address] 10/13/2023 11:00 AM EDT Nurse Only Ancillary Department, [place] [address] [place] [address] [place], Nurse Annual Wellness [address] [place] [address] 10/14/2023 9:00 AM EDT Office Visit Urology, [facility] 132 [facility] [place] [address] Eliud Goodwin MD [address] [place] [address] [place] [address] 04/16/2024 10:30 AM EST Office Visit Sleep Disorders Ctr [facility] [address] [place] [phone] Little Lino CRNP [address] [place] [address] Scheduled Procedures Name Priority Associated Diagnoses Date/Ti [...] Visit Diagnoses Diagnosis Allergic rhinitis due to pollen, unspecified seasonality- Primary documented in this encounter Care Teams Firewall Security Engineer Relationship Specialty Start Date End Date Rama Reed MD [address] [place], [place] [phone] PCP - General Family Medicine 04/24/20 documented as of this encounter
--- OUTSIDE RECORDS SUMMARY | 2023-07-10 10:51 | External Medical Summary | Summary of Care ---
Author Name Unknown Organization [facility] Address [address] [facility] [place] [address] Phone [phone] Care Team Providers Care Central Sterile Tech Name Role Phone Rama Reed MD Primary Care Provid er Encounter Details Date Type Department Care Team (Late st Contact Info) Description 06/23/2023 Result Scan Unspecified Department Shell Orozco, [facility] [address] [place] [address] <No scans attached> Allergies Active Allergy Reactions Criticality Noted Date Comments Aspirin 06/11/2022 Buspirone 08/18/2020 Sexual side effects. Doxycycline Hives High 05/01/2023 Enoxaparin Rash 06/24/2016 Hydrocortisone Low 07/08/2022 Other reaction(s): Rash Hydrodiuril Rash 05/29/2009 Hydroquinone 01/15/2019 Nylon sutures Cephalexin 10/24/2020 Rash Naproxen 10/18/2019 Omeprazole 10/18/2019 Pantoprazole Diarrhea 09/16/2022 Penicillins 01/21/2001 rash Bupropion 08/18/2020 Hair loss documented as of this encounter (statuses as of 06/23/2023) Medications Medication Sig Dispensed Refills Start Date [...] a day as needed. 0 01/31/2022 Active crowdSPRING Verio w/Device KitIndications:Predi abetes Check fasting blood sugar once a day. R73.03 1 Kit 0 03/15/2022 Active crowdSPRING UltraSoft LancetsIndications:P rediabetes Check fasting blood sugar once a day. R73.03 100 Each 3 04/02/2022 Active Archetype PartnersTouch Ultra Control In Vitro SolutionIndications: Prediabetes Dx:R73.03 [...] TABLET BY MOUTH EVERY MORNING 90 Tablet 03/31/2023 5 Active Warfarin Sodium 5 MG [...] LEFT ARM 120 g 1 06/05/2023 Active Archetype PartnersTolmbang Verio In Vitro Strip (Glucose Blood) CHECK FASTING BLOOD SUGAR ONCE DAILY 100 Strip 3 06/09/2023 Active Archetype PartnersTouch Delica Plus [id number] CHECK FASTING BLOOD SUGAR ONCE DAILY 100 Each 3 06/09/2023 Active Hospital, Clinic, or Other Facility Administered Medication Ordered Dose Route Frequency Start Date End Date Status hEParin, bupivacaine (Sensorcaine) 30 mL, methylPREDNISolone sodium succ (SOLU-Medrol) 125 mg, gentamicin 80 mg, sodium bicarbonate 4 mEq bladder instillationIndications:Chron ic interstitial cystitis with hematuria IS QWEEK 01/16/2022 Active documented as of this encounter (statuses as of 06/23/2023) Active Problems Problem Noted Date Diagnosed Date Morbid (severe) obesity due to excess calories 0 04/30/2023 Type 2 diabetes mellitus without complication Major depressive disorder, recurrent, moderate 0 04/30/2023 Food insecurity 02/10/2023 Overview: Per [facility] Protocol 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 Recurrent [...] Chronic back pain 10/09/2011 Insulin resistance 08/26/2011 correction current use of anticoagulant therapy 0 11/30/2009 Mild persistent asthma without complication 10/01 Moderate episode of recurrent major depressive d isorder 08/20/2001 Generalized anxiety disorder documented as of this encounter (statuses as of 06/23/2023) Resolved Problems Problem Noted Date Diagnosed Date [...] 07/20/2009 01/06/2014 Sprain, lumbosacral 07/20/2009 01/07/20 14 terminal 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 therapy 07/20/2009 [...] as of this encounter (statuses as of 06/23/2023) Immunizations Name Administration Dates Next Due COVID-19 [...] Contact Info) Description 07/03/2023 9:00 AM EDT Immunization/Injecti on Allergy/Immunology [facility] [place] [address] [place] [address] Christine Nurse Allergy [place] [address] [place] [address] 07/08/2023 9:00 AM EDT Office Visit Nutrition & Weight Management, [facility] [address] [facility] [place] [address] Gerri Kelly PA-C [address] [facility] [place] [address] 07/11/2023 8:00 AM EDT Nutrition Services Nutrition, [facility] 132 [facility] [place], [place] [address] Jaida Newell RDN 132 [facility] [place] [address] 09/08/2023 9:20 AM EDT Office Visit Family Practice, [place] [address] [place] [address] Rama Reed MD [address] [place] [address] 09/23/2023 10:00 AM EDT Nutrition Services Nutrition & Weight Management, [facility] 132 [facility] [place] [address] Rosalba Montes RDN 132 [facility] [place] [address] 09/25/2023 8:40 AM EDT Office Visit Neurology [facility] 200 [facility], [place] [address] Cara Shell MD 200 [place] [address] 10/13/2023 11:00 AM EDT Nurse Only Ancillary Department, [place] [address] [facility] [place] [address] [place], Nurse [facility] [address] [place] [address] 10/14/2023 9:00 AM EDT Office Visit Urology, [facility] [place] [address] Eliud Goodwin MD [address] [place] [address] 04/16/2024 10:30 AM EST Office Visit Sleep Disorders Ctr [facility] 132 [facility] [place] [phone] Little Lino CRNP 132 [facility] [place] [address] Scheduled Procedures Name Priority Associated Diagnoses Date/Ti me COLONOSCOPY FLEXIBLE PROXIMAL DIAGNOSTIC Recall History of colon polyps Health Maintenance Due Date Last Done Comments Diabetic Foot Exam 05/23/1981 Pneumococcal Vaccine: Pediatrics (0 to 5 Years) [...] 01/27/2026 01/27/2023, 12/02, 10/15/2017, Additional history exists COLONOSCOPY-EVERY 5 YRS AGES 18-100 05/15/2027 05/14/2022, 05/14/2022, 01/22/2017, Additional history exists Lipid Panel 09/06/2027 09/05/2022, 11/01, 05/26/2018, Additional history exists Cervical Cancer Screening 01/28/2028 HPV/Co-Test 01/28/2028 01/27/2023 DTaP,Tdap,and Td Vaccines (3 - Td or Tdap) 03/31/2028 03/31/2018, 10/16/2007 Zoster Vaccines Completed 03/23/2018, 09/30/2017 Influenza Vaccine (FLU shot) Completed , 11/26/2021, 11/26/2021, Additional history exists GARDASIL-HPV IMMUNIZATION [...] Date/Time Associated Diagnosis Comments OUTSIDE LAB RESULTS 06/23/2023 documented in this encounter Results * OUTSIDE LAB RESULTS (06/23/2023) 06/23/2023 Shell Orozco [facility] LABORATORY documented in this encounter Care Teams Central Sterile Tech Relationship Specialty Start Date End Date Rama Reed MD [address] [place] [address] PCP - General Family Medicine 04/24/20 documented as of this encounter
--- OUTSIDE RECORDS SUMMARY | 2023-07-10 10:51 | External Medical Summary | Summary of Care ---
Author Name Unknown Organization [facility] Address [address] [facility] [address] Phone [phone] Care Team Providers Care Graffiti Cleaner Name Role Phone Rama Reed MD Primary Care Provid er Reason for Visit * Reason Comments Dosage Adjustment Via Phone (anticoag Cl inic) Encounter Details Date Type Department Care Team (Latest Contact Info) Description 06/23/2023 6:30 AM EDT Anticoagulation Pharmacy Call Center [phone] [facility] [place] [address] [facility] [address] [facility] [place] [address] History of DVT (deep vein thrombosis)* Allergies [...] a day as needed. 0 01/31/2022 Active TrueAccord Verio w/Device KitIndications:Predi abetes Check fasting blood sugar once a day. R73.03 1 Kit 0 03/15/2022 Active ShoutWireTouch UltraSoft LancetsIndications:P rediabetes Check fasting blood sugar once a day. 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 PT/INR results, Coumadin dose instructions, and next PT/INR date communicated as noted by Pharmacist: Yes MIRANDA WATTS CPhT 06/23/2023, 8:26 AM * Holly Millan RP - 06/23/2023 8:19 AM EDT Images from the original note were not included. Coumadin Clinic (region specific) Objective Current Warfarin Dose As of 06/23/2023 Warfarin maintenance plan: 10 mg (5 mg x 2) every day INR Result As of 06/23/2023 INR goal: 2.0-3.0 INR used for dosin.4 (06/23/2023) Assessment & Plan Warfarin Plan As of 06/23/2023 Full warfarin instructions: 06/22: 20 mg; Otherwise 10 mg every day Next INR check: 06/30/2023 Repeat PT/INR in 1 week(s) Weekly dose: not changed Additional Dosing Information: Description Home Machine Or [place] Bactrim DS 06/02/23-06/15/23 Carbamazepine started 05/23/23 Tech to contact patient with dose instructions as noted. Holly Millan RPh 06/23/2023, 8:19 AM * Miranda Watts CPhT - 06/23/2023 8:10 AM EDT Patient Phone Numbers Received fax from [facility] for today's INR result of 1.4 Thank you, Miranda Watts CPhT Butadiene Converter Operator II [facility] ([facility]) (formerly telepharmacy) 06/23/2023,8:10 AM documented in this encounter Plan of Treatment Upcoming Encounters Date Type Department Care Team (Late st Contact Info) Description 07/03/2023 9:00 AM EDT Immunization/Injecti on Allergy/Immunology [facility] [address] [place] [address] Christine Nurse Allergy [facility] [address] [place] [address] 07/08/2023 9:00 AM EDT Office Visit Nutrition & Weight Management, [facility] [address] [place] [address] Gerri Kelly PA-C [address] [place] [address] 07/11/2023 8:00 AM EDT Nutrition Services Nutrition, [facility] [address] [place] [address] Jaida Newell RDN [address] [place] [address] 09/08/2023 9:20 AM EDT Office Visit [place] [address] [place] [address] Rama Reed MD [address] [place] [address] 09/23/2023 10:00 AM EDT Nutrition Services Nutrition & Weight Management, [facility] [address] [place] [address] Rosalba Montes RDN [address] [place] [address] 09/25/2023 8:40 AM EDT Office Visit Neurology [facility] [address] [place] [address] Cara Shell MD 200 [place] [address] 10/13/2023 11:00 AM EDT Nurse Only Ancillary Department, [place] [address] [place] [address] [place], Nurse [facility] [address] [place] [address] 10/14/2023 9:00 AM EDT Office Visit Urology, [facility] 132 [place] [address] Eliud Goodwin MD 27 [facility] [address] [place] [address] 04/16/2024 10:30 AM EST Office Visit Sleep Disorders Ctr [facility] 132 [place] [phone] Little Lino CRNP 132 [facility] [place] [address] Scheduled Procedures Name Priority Associated Diagnoses Date/Ti [...] 03/19/2022, Additional history exists Mammogram 12/10/2023 12/09/2022, 1008/2021, 12/06/2021, Additional history exists Albumin/Creatinine Ratio 04/30/2024 [...] Date/Time Associated Diagnosis Comments OUTSIDE LAB-PT/INR Routine 06/23/2023 documented in this encounter Results * OUTSIDE LAB-PT/INR (06/23/2023) INR-OUTSIDE LAB 1.4 [place] 06/23/2023 History Per Patient LABORATORY [facility] [address] [place] [address] documented in this encounter Visit Diagnoses Diagnosis History of DVT (deep vein thrombosis)- Primary Personal history of venous thrombosis and embolism documented in this encounter Care Teams Graffiti Cleaner Relationship Specialty Start Date End Date Rama Reed MD [address] [place] [address] PCP - General Family Medicine 04/24/20 documented as of this encounter
--- OUTSIDE RECORDS SUMMARY | 2023-07-10 10:51 | External Medical Summary | Summary of Care ---
Author Name Unknown Organization [facility] Address [address] [facility] [address] Phone [phone] Care Team Providers Care Pumping Plant Operator Name Role Phone Rama Reed MD Primary Care Provid er Reason for Visit * Reason Comments Dosage Adjustment Via Phone (anticoag Cl inic) Encounter Details Date Type Department Care Team (Latest Contact Info) Description 06/17/2023 6:15 PM EDT Anticoagulation Pharmacy Call Center 58[address] [facility] [place] [address] [facility] 58 [address] [facility] [place] [address] History of DVT (deep vein thrombosis)* Allergies [...] as of this encounter (statuses as of 06/17/2023) Medications Medication Sig Dispensed Refills Start Date [...] a day as needed. 0 01/31/2022 Active Rdio Verio w/Device KitIndications:Predi abetes Check fasting blood sugar once a day. R73.03 1 Kit 0 03/15/2022 Active Hyperion TherapeuticsTouch UltraSoft LancetsIndications:P rediabetes Check fasting blood sugar once a day. 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 Recurrent [...] Chronic back pain 10/09/2011 Insulin resistance 08/26/2011 long term care pharmacist current use of anticoagulant therapy 0 11/30/2009 Mild persistent asthma without complication 10/01 Moderate episode of recurrent major depressive d isorder 08/20/2001 Generalized anxiety disorder documented as of this encounter (statuses as of 06/17/2023) Resolved Problems Problem Noted Date Diagnosed Date [...] 07/20/2009 01/06/2014 Sprain, lumbosacral 07/20/2009 01/07/20 14 long term care pharmacist current use of ant icoagulant therapy 07/20/2009 [...] as of this encounter (statuses as of 06/17/2023) Immunizations Name Administration Dates Next Due COVID-19 [...] as of this encounter Progress Notes * Bhavya Kennedy, [facility] - 06/17/2023 4:00 PM EDT Noted. Thank You Bhavya Kennedy PharmD Clinical Pharmacist [facility] ([facility]) (formerly Telepharmacy) [phone] / [phone] 06/17/2023, 4:00 PM * Shell Lockhart CPhT - 06/17/2023 3:45 PM EDT Contacts Type Contact Phone/Fax 06/17/2023 03:43 PM EDT Phone (Outgoing) Jewell Mckinney (Self) [phone] (M) Left Message Left detailed message to call us back to make us aware that she finished Bactrim as per [facility] note below. Subjective Advised patient to contact Anticoagulation Clinic if any unusual bruising or bleeding, recent illness, changes in medication, or questions/concerns. PT/INR results, Coumadin dose instructions, and next PT/INR date communicated as noted by Pharmacist: Yes Shell Lockhart CPhT 06/17/2023, 3:45 PM * Bhavya Kennedy RPh - 06/17/2023 3:30 PM EDT Images from the original note were not included. Coumadin Clinic (region specific) Objective Current Warfarin Dose As of 06/17/2023 Warfarin maintenance plan: 5 mg (5 mg x 1) every Fri; 10 mg (5 mg x 2) all other days INR Result As of 06/17/2023 INR goal: 2.0-3.0 INR used for dosin.6 (06/17/2023) Assessment & Plan Warfarin Plan As of 06/17/2023 Full warfarin instructions: 06/16: 15 mg; Otherwise 10 mg every day Next INR check: 06/23/2023 Please confirm patient is now finished with Bactrim therapy Repeat PT/INR in 6 day(s) Weekly dose: increased Additional Dosing Information: Description Home Machine Or [place] Bactrim DS 06/02/23-06/15/23 Carbamazepine started 05/23/23 Tech to contact patient with dose instructions as noted. Bhavya Kennedy RPh 06/17/2023, 3:30 PM documented in this encounter Plan of Treatment Upcoming Encounters Date Type Department Care Team (Late st Contact Info) Description 06/24/2023 6:30 AM EDT Anticoagulation Pharmacy Call Center [place] [address] [facility] [place] [address] C[facility]ps, [facility] 58 60 [facility] [place] [address] 07/03/2023 9:00 AM EDT Immunization/Injection Allergy/Immunology [facility] [address] [place] [address] Christine, Nurse Allergy [facility] [address] [place] [address] 07/08/2023 9:00 AM EDT Office Visit Nutrition & Weight Management, [facility] [address] [facility] [place] [address] Gerri Kelly PA-C [address] [place] [address] 07/11/2023 8:00 AM EDT [facility] [address] [place] [address] Jaida Newell, WILD [address] [place] [address] 09/08/2023 9:20 AM EDT Office Visit [facility] [address] [facility] [phone] Rama Reed MD [address] [place] [facility] [address] 09/23/2023 10:00 AM EDT Nutrition Services Nutrition & Weight Management, [facility] 132 [facility] [place] [address] Rosalba Montes RDN 132 [facility] [place] [address] 09/25/2023 8:40 AM EDT Office Visit Neurology [facility] 200 [facility] [place] [address] Cara Shell MD 200 [facility] [place] [address] 10/13/2023 11:00 AM EDT Nurse Only Ancillary Department, [address] [address] [place], Nurse [facility] [address] [place] [address] 10/14/2023 9:00 AM EDT Office Visit Urology, [facility] 132 [facility] [place] [address] Eliud Goodwin MD [address] [address] 04/16/2024 10:30 AM EST Office Visit [facility]tr [facility] [place] [phone] Little Lino CRNP 132 [facility] [place] [address] Scheduled Procedures Name Priority Associated Diagnoses Date/Ti [...] Date/Time Associated Diagnosis Comments OUTSIDE LAB-PT/INR Routine 06/17/2023 documented in this encounter Results * OUTSIDE LAB-PT/INR (06/17/2023) INR-OUTSIDE LAB 1.6 [place] History Per Patient LABORATORY [facility] [address] [place] [address] documented in this encounter Visit Diagnoses Diagnosis History of DVT (deep vein thrombosis)- Primary Personal history of venous thrombosis and embolism documented in this encounter Care Teams Pumping Plant Operator Relationship Specialty Start Date End Date Rama Reed MD [address] [place] [address] PCP - General Family Medicine 04/24/20 documented as of this encounter
[2023-07-10] MEDS ORDERED: ONDANSETRON INJ 2 MG/ML 2 ML VIAL IV PRN (12:59)
[2023-07-10] MEDS ORDERED: MAGNESIUM HYDROXIDE SUSP 30 ML UDC PO PRN (12:59)
[2023-07-10] MEDS ORDERED: ACETAMINOPHEN 325 MG TAB PO PRN (12:59)
[2023-07-10] MEDS ORDERED: POLYETHYLENE (MIRALAX) 17 GM PACK PO PRN (12:59)
[2023-07-10] MEDS ORDERED: ALUMINUM/MAGNESIUM SUSP 30 ML UDC PO PRN (12:59)
--- NOTE | 2023-07-10 13:07 | History & Physical Report ---
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 Patient started on Bactrim DS 3 days ago for wound cultures growing staph. She has had worsening neuropathy in the left lower extremity. No leukocytosis, does not appear septic or toxic. On examination patient left foot with erythema and cellulitis with lymphangitis streaking up the hollins to mid hollins. Ankle x-ray indicates soft tissue swelling without osseous involvement. Compliant on all of her medications including Coumadin; however, has only had one therapeutic INR result as an outpatient over the past month. Will be admitted for further evaluation and management of her deteriorating, poorly healing dorsal foot infection and lymphangitis in the setting of chronic venous insufficiency s/p L GSV ablation 07/2021. Will obtain foot CT to rule out osteomyelitis, rule out clot due to subtherapeutic INR with LLE Doppler US, obtain CRP, continue IV antibiotics and adjust based on wound cultures, WOCN consult placed and continue other medicines for chronic comorbidities. Consider involving infectious disease if no noted improvement. Cellulitis of foot, left: Chronic venous insufficiency: History of staph infection: Peripheral neuropathy: Chronic In the setting of delayed wound healing status post left GSV ablation 07/[address] [place] [facility] [place] last appointment 12/31 who indicated no surgery at that time Has been following with WOCN as outpatient most recent dressings with aqua seal; new orthotics Darco shoe given to patient at most recent appointment Follows with pain management due to persistent neuropathy in left lower extremity; Next appointment Friday 07/14 No leukocytosis; does not appear toxic Will obtain CRP Uses tramadol as needed; was given Morphine in ED with relief. Takes pregabalin and carbamazepine; continue CT foot negative for osteomyelitis/abscess Started on Ancef in ED; continue and adjust based on wound culture results Consider ID involvement if no improvement. 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 Sukh Espinoza; she no longer follows with him. It appears that she has been seen numerous times through coagulation clinic and have tried numerous LMWH therapies, but appears Coumadin was the best suited. Recommend following with Heme as an OPT Pt was also on Bactrim as well which may be contributing factor to subtherapeutic #'s. Has been compliant with INR checks. Vlv-dhhmmdc-uvyhtwxzq diabetes: Chronic [id number]-[id number] Prescribed metformin Most recent A1c 04/26; 5.4 Diabetic diet SSI ACHS while inpatient Migraine: Chronic Takes Ajovy monthly; has not taken it in July RAYMOND: Morbid obesity: Chronic CPAP at night OAB: Chronic Takes Vesicare; continue Depression: Takes duloxetine; continue Disposition: PCP: Dr. Reed Code Status: Full Code VTE Prophylaxis: On Coumadin; given subtherapeutic; initiate Heparin SQ for now I spent a total of 84 minutes coordinating, documenting, and providing care for this patient excluding time spent in the performance of separately billed services. All of the aforementioned completed while collaborating with the assigned attending physician for a full treatment plan. Please see their addendum for further details. History of Present Illness Chief Complaint: non-healing wound/lymphangitis Primary Care Provider: Rama Reed MD Ms. Mckinney is a 58 year old that presented to the ED as recommended by the wound care clinic today after deterioration of a chronic dorsal left foot wound In the setting of chronic venous insufficiency. Patient started on Bactrim DS 3 days ago for wound cultures growing staph. Patient is status post left GSV ablation 07/22 with delayed wound healing. She has had worsening neuropathy in the left lower extremity and has been following with pain management and taking pregabalin. No leukocytosis, does not appear septic or toxic. On examination patient left foot with erythema and cellulitis with lymphangitis streaking up the hollins to mid hollins. Ankle x-ray indicates soft tissue swelling without osseous involvement. Due to complexity of poorly healing wound would like to rule out osteomyelitis with a left ankle/foot CT. Creatinine 0.94. Patient will be admitted for further evaluation and management of her left dorsal foot cellulitis with IV antibiotics, adjust based on wound culture, WOCN consult for wound dressing changes and evaluation, continue IV fluids for now; throw threshold for clot in LLE due to being compliant on Coumadin. Patient denies headache, visual or auditory changes, chest pain, palpitations, shortness of breath, abdominal pain or tenderness, urinary or bowel changes, altered mental status, recent falls or trauma. Patient denies tobacco, alcohol, recreational drug use including medical marijuana. Patient has been compliant on all of her medications including Coumadin; however, has only had one therapeutic INR result as an outpatient over the past month. Pt with noted enoxaparin allergy; per EMR link in 2007, patient has numerous coagulopathies noted and was seen by Dr. Sukh Espinoza; she no longer follows with him. It appears that she has been seen numerous tiems through coagulation clinic and have tried numerous LMWH therapies, but appears Coumadin was the best suited. Patient reports she has no longer been taking metformin. Most recent A1c 04/30/2023 5.4. Patient Will be admitted for further evaluation and management of her deteriorating, poorly healing dorsal foot infection and lymphangitis in the setting of chronic venous insufficiency s/p L GSV ablation 07/2021. Will obtain foot CT to rule out osteomyelitis, rule out clot due to subtherapeutic INR with LLE Doppler US, obtain CRP, continue IV antibiotics and adjust based on wound cultures, WOCN consult placed and continue other medicines for chronic comorbidities. Consider involving infectious disease if no noted improvement. Allergies Allergy/AdvReac Type Severity Reaction Status Date / Time enoxaparin Allergy Severe Hives Verified 07/10/23 07:57 doxycycline Allergy Intermediate Hives Verified 07/10/23 07:57 hydrocortisone Allergy Mild Rash Verified 07/10/23 07:57 Penicillins Allergy Unknown Unknown Verified 07/10/23 07:57 childhood reaction cephalexin Allergy Verified 07/10/23 07:57 suture AdvReac Intermediate vicryl Verified 07/10/23 07:57 nylon-non healing would Home Medications Medication Instructions Recorded Confirmed Type albuterol sulfate 90 mcg/actuation 1 inh inhalation Q6H PRN Shortness 02/10/20 07/10/23 History breath activated powder Of Breath inhaler,sensor ascorbic acid (vitamin C) 100 mg 300 mg PO QAM 02/10/20 07/10/23 History chewable tablet cetirizine 10 mg tablet (Zyrtec) 10 mg PO BID 02/10/20 07/10/23 History cholecalciferol (vitamin D3) 50 2,000 unit PO QAM 02/10/20 07/10/23 History mcg (2,000 unit) tablet (Vitamin D3) fremanezumab-vfrm 225 mg/1.5 mL 225 mg subcut MONTHLY 02/10/20 07/10/23 History subcutaneous auto-injector (Ajovy) magnesium oxide 400 mg PO QAM 02/10/20 07/10/23 History montelukast 10 mg tablet 10 mg PO HS 02/10/20 07/10/23 History (Singulair) pregabalin 200 mg capsule (Lyrica) 200 mg PO BID 02/10/20 07/10/23 History warfarin 5 mg tablet 5 - 10 mg PO DIRECTED 02/10/20 07/10/23 History multivitamin with minerals-folic 2 tab PO DAILY 09/01/20 07/10/23 History acid 200 mcg chewable tablet (Adult Multivitamin Gummies) sennosides 8.6 mg tablet (Senokot) 8.6 mg PO HS #30 tabs 09/22/20 07/10/23 Rx furosemide 20 mg tablet (Lasix) 20 mg PO BID 04/24/21 07/10/23 History potassium chloride 10 mEq 10 meq PO DAILY 04/24/21 07/10/23 History tablet,extended release(part/cryst) trazodone 100 mg tablet 200 mg PO HS PRN Sleep 04/24/21 07/10/23 History lorazepam 1 mg tablet (Ativan) 1 mg PO TID PRN Anxiety 11/11/22 07/10/23 History solifenacin 10 mg tablet 10 mg PO DAILY 12/20/22 07/10/23 History duloxetine 60 mg capsule,delayed 120 mg PO DAILY 01/09/23 07/10/23 History release (Cymbalta) clotrimazole 1 % topical cream 1 applic topical BID 05/08/23 07/10/23 History pregabalin 100 mg capsule 100 mg PO BID #60 caps 05/21/23 07/10/23 Rx metformin 500 mg tablet 2,000 mg PO HS 06/17/23 07/10/23 History tramadol 50 mg tablet 50 - 100 mg (1 - 2 x 50 mg) PO Q6H 06/23/23 07/10/23 Rx PRN pain #60 tabs carbamazepine 100 mg 100 mg PO BID 06/26/23 07/10/23 History capsule,extended release [id number] (Carbatrol) sulfamethoxazole 800 1 tab PO BID 14 days #28 tabs 07/07/23 07/10/23 Rx mg-trimethoprim 160 mg tablet (Bactrim DS) Past Med/Surg History Medical History (Updated 07/10/23 @ 14:14 by JAMSHID Aggarwal) Diabetes Peripheral neuropathy OAB (overactive bladder) Pain in toe of left foot Paresthesia of left foot Insulin resistance metformin BID Morbid obesity with BMI of 40.0-44.9, adult Morbid obesity Osteoarthritis Degenerative disc disease Chronic back pain GERD (gastroesophageal reflux disease) controlled Deep vein thrombosis LLE (several years ago - control pills)- on warfarin Post traumatic stress disorder Depression Anxiety Migraine on monthly Ajovy injection Asthma controlled Sleep apnea CPAP Allergic reaction to chemical substance Dysfunctional uterine bleeding Symptomatic anemia Surgical History History of dilatation and curettage S/P epidural steroid injection S/P lumbar fusion S/P foot surgery, left H/O arthroscopy of right knee x3 Right knee arthroscopy, chondroplasty [place]03/17/2020[place] [facility] [place] of [place] knee History of colonoscopy History of arthroscopic knee surgery History of foot surgery History of back surgery Family History Other Asthma Heart disease Hypertension No family history of adverse response to anesthesia Social History Smoking Status: Former smoker Tobacco Type: Cigarettes Cigarettes Per Day: 1/2 pack a day.; Second Hand Exposure: Yes; Do You Dip or Chew Tobacco: No; Tobacco Cessation Education Requested by Patient: No Hx Alcohol Use: Yes Alcohol type: beer Hx Substance Use: No Preferred Language: Greek Communication Ability: Effective Compliance Monitor Required: No Beliefs That Will Affect Care: None Current Living Situation: Alone Current Living Situation Comment: lives with younger son Other Information That Helps Us Care for You: No Feels Safe at Home: Yes Safety Concerns: Feels Safe At This Time Assistive Devices: Cane, Contacts, Glasses and Walker Review of Systems Review of Systems: Neuro: (-) Falls, trauma, slurred speech HEENT: (-) MOORE, dizziness, dysphagia, visual or auditory changes CV: (-) CP, palpitations, swelling Resp: (-) SOB GI: (-) appetite changes, N/V/D, bowel changes : (-) urinary changes Skin: (-) rashes (+) erythema (+) pain in left foot (+) neuropathy in left foot Psych: (-) anxiety, depression Physical Exam Physical Exam: Neuro: AAOx4, PERRLA, no aphagia, memory changes, CNII-XII grossly intact HEENT: head normocephalic, moist mucus membranes CV: S1/S2, (-) M/G/R, (-) edema, cap refill < 3 seconds Resp: Lungs CTA in all sanchez. On RA GI: Abdomen S/NT/ND, Ax4 bowel sounds, (-) CVA tenderness Musculoskeletal: 5/5 B/L UE strength, 5/5 B/L LE strength. No gait disturbance Skin: (-) rashes , (+) erythema. L dorsal foot infection; quarter-sized non- healing wound, (+) seroussangenous drainage (-) malodor. Anterior lymphangitic streak Psych: euthymic mood Results & Data Results & Data Vital Signs (Past 12 Hours) Vital Signs Temp Pulse Pulse Resp BP BP Pulse Ox 07/10/23 10:00 67 18 155/89 H 96 07/10/23 08:52 36.9 C 62 18 162/109 H 96 O2 Del Method 07/10/23 10:00 Room Air 07/10/23 08:52 Room Air Laboratory Results Short CBC 07/10/23 Range/Units 09:08 WBC 4.59 L (4.8-10.8) K/ul Hgb 11.9 L (12.0-16.0) g/dl Hct 37.4 (37.0-47.0) % Plt Count 230 (130-400) K/uL BMP 07/10/23 09:08 Sodium 139 Potassium 4.0 Chloride 103 Carbon Dioxide 29 BUN 14 Creatinine 0.94 Glucose 82 Calcium 9.3 Liver Function 07/10/23 Range/Units 09:08 Total Bilirubin 0.3 (0.2-1.0) mg/dl Direct Bilirubin 0.1 (0-0.2) mg/dl AST 19 (13-39) U/L ALT 13 (7-52) U/L Alkaline Phosphatase 91 (34-104) U/L Albumin 4.3 (3.4-5.0) gm/dl Code Status & VTE Plan Code Status Full Code in the event of cardiac or respiratory arrest VTE Prophylaxis Plan VTE Prophylaxis will be ordered: Yes Supervising Physician Co-Signing Physician Notes I have seen and discussed the case with the collaborating advanced practitioner. I agree with the above H&P. I have reviewed and confirmed the patients medical history, the findings on physical examination, and the patients diagnosis and treatment plan with Frida BREEN and agree with the information documented. In short, Ms. Mckinney is a 58 year old woman with history of Trisomy X, polyneuropathy, prior DVT 2/2 thrombophilia, DMTII and other comorbidities who is admitted for management of wound of left foot that has failed OP antibiotic therapy for wound. Patient noted to have left foot wound over 2nd digit that has failed to heal, and appeared to be progressive. Cultures with MSSA. Patient reports pain, but denies any other acute concerns. GENERAL APPEARANCE: AxOx3, generally well-appearing, conversational, no acute distress. HEENT: NC, AT. MMM. EOMI, clear conjunctiva, oropharynx clear. NECK: Supple without lymphadenopathy. No stiffness or restricted ROM. HEART: Normal rate and regular rhythm, normal S1/S1, no m/r/g LUNGS: CTAB, moving air well. No crackles or wheezes are heard. ABDOMEN: Soft, nontender, nondistended with good bowel sounds heard. EXTREMITIES: no clubbing or edema, moving all 4 NEUROLOGICAL: Grossly nonfocal. Alert and oriented, moving all 4 extremities. CN not formally tested but appear grossly intact. Observed to ambulate with normal gait. Skin: quarter size eschar like wound on dorsum of foot over second digit with area of erythema tracking up dorsum #Left foot wound with lymphangitis #Prior DVT on chronic anticoagulation MSSA on 07/02 culutres, failed abx therapy CTA without abscess/fluid collection/OM dopplers negative 2007 work up for DVT: - Factor V Leiden mutation--> Negative - Prothrombin gene mutation--> Negative - Protein C assay--> 117% - Protein S assay--> 96 % - Antithrombin III level--> 88% - Anticardiolipin antibody--> negative - Homocysteine level--> 7.1 which is normal. Given history of DVT and Trisomy X which lends to hypercoagulability per OP notes, will bridge Wound nurse Continue cefazolin #Trisomy X Follows Autism Development Medicine, noted intellectual disability #Parkinson like features Follow Neurology for questionable parkinsonism Rest of plan as above I spent a total of 35 minutes coordinating, documenting, and providing care for this patient excluding time spent in the performance of separately billed services. All of the aforementioned completed outside of collaborating with the assigned advanced practitioner for a full treatment plan. I have reviewed the advanced practitioner's documentation, and I agree with, and take responsibility for the plan of care
[2023-07-10] MEDS ORDERED: LORazepam 1 MG TAB PO PRN (14:00)
[2023-07-10 14:26] LABS: Hematocrit (blood only) 38.1 % (37.0-47.0); Hemoglobin 12.3 g/dl (12.0-16.0); Mean Corpuscular Hemoglobin 28.6 pg (25.0-34.0); Mean Corpuscular Hgb Conc 32.3 g/dL (32.0-36.0); Mean Corpuscular Volume 88.6 fL (80.0-100.0); Mean Platelet Volume 10.8 fL (9.4-12.4); Platelet Count 218 K/uL (130-400); RDW Coefficient of Variation 14.3 % (11.5-14.5); RDW Standard Deviation 46.4 fL (36.4-46.3); White Blood Count 4.14 K/ul (4.8-10.8)
--- NOTE | 2023-07-10 15:03 | CT Scan Report ---
CT angio foot LT wo/w con CLINICAL HISTORY: LLE Chronic venous insufficiency/r/O osteomyelitis TECHNIQUE: Multidetector row helical CT of the left foot was performed with and without IV contrast, and angiography. Coronal and sagittal reformations were obtained. Automated dose lowering techniques and/or adjustment according to patient size were utilized for this examination. CT DOSE: 662.35 mGy.cm Comparison: Comparison is made to foot radiographs 05/05/2023 FINDINGS: Surgical fixation hardware is in the mid foot. No evidence of acute fracture or bony erosion. No join t effusion is seen. Soft tissue swelling, most prominent in the medial midfoot, without drainable fl uid collection. IMPRESSION: No acute fracture, no osteomyelitis or abscess. Soft tissue swelling which may represent healing miner ges of the previously noted wound. ACT 112: Negative or not required by law. Electronically signed by: Rogelio Walker M.D. 07/10/2023 3:01 PM
[2023-07-10 16:06] LABS: C Reactive Protein 2.9 mg/dl (0-0.5)
--- NOTE | 2023-07-10 16:25 | Ultrasound Report ---
ULTRASOUND LEFT LOWER EXTREMITY VENOUS CLINICAL HISTORY: Subtherapeutic INR. History of DVT. COMPARISON STUDY: Left lower extremity venous ultrasound dated 08/01/2007 TECHNIQUE: Real-time, grayscale, and color Doppler sonography of the deep veins of the left lower ext remity was performed from the inguinal crease to the calf. Compression and augmentation were utilized . FINDINGS: There is no sonographic evidence of deep venous thrombosis identified in the left lower ext remity. The common femoral, superficial femoral, and popliteal veins are patent and normally compress ible. The greater saphenous vein and the profunda femoris vein at the junction with the common femora l vein are clear. The visualized calf veins are patent. IMPRESSION: There is no sonographic evidence of deep venous thrombosis identified in the left lower e xtremity. ACT 112: Negative or not required by law. Electronically signed by: Romeo Nelson M.D. 07/10/2023 4:23 PM
[2023-07-10] MEDS: ceFAZolin 2000MG 2,000 MG/15 ML SYR IV SCH (17:28)
[2023-07-10] MEDS: FUROSEMIDE 20 MG TAB PO SCH (17:28)
[2023-07-10] MEDS: OPTIRAY 320 125ml IV ONE (17:29)
[2023-07-10] MEDS: CARBOHYDRATES FOR HYPOGLYCEMIA PO PRN (17:43)
[2023-07-10] MEDS ORDERED: DEXTROSE 50% 50 ML SYRINGE IV PRN (18:04)
[2023-07-10] MEDS ORDERED: GLUCOSE 10 TAB/TUBE PO PRN (18:04)
[2023-07-10] MEDS ORDERED: GLUCAGON FOR INJ 1 MG VIAL SQ PRN (18:04)
[2023-07-10] MEDS ORDERED: PHARMACY GLYCEMIC MGMT CONSULT PRN (18:04)
[2023-07-10] MEDS ORDERED: GLUCOSE 40% GEL 15 GM TUBE PO PRN (18:04)
[2023-07-10] MEDS ORDERED: Heparin IV Adult Wt-Based Low-Dose *NO* INITIAL Bolus Protocol IV SCH (18:51)
[2023-07-10] MEDS ORDERED: LANTUS PER UNIT CHARGE SQ SCH (21:00)
[2023-07-10] MEDS ORDERED: HEPARIN SOD 5,000 UNIT/0.5 ML VIAL SQ SCH (21:00)
[2023-07-10] MEDS: PREGABALIN 100 MG CAP PO SCH ×2 (21:14)
[2023-07-10] MEDS: MONTELUKAST SODIUM 10 MG TABLET PO SCH (21:15)
[2023-07-10] MEDS: CETIRIZINE HCL 10 MG TABLET PO SCH (21:15)
[2023-07-10] MEDS: SENNA 8.6 MG TAB PO SCH (21:15)
[2023-07-10] MEDS: carBAMazepine XR 100 MG TABCR PO SCH (21:15)
[2023-07-10] MEDS: INSULIN ASPART PER UNIT CHARGE SC SCH (21:16)
[2023-07-10] MEDS: oxyCODONE HCL IR 5 MG TAB (IMMEDIATE RELEASE) PO PRN (21:29)
[2023-07-10 21:45] LABS: INR 1.8 (0.9-1.1); Prothrombin Time 18.2 Seconds (9.0-12.0)
[2023-07-10] MEDS: traZODone HCL 100 MG TAB PO PRN (21:45)
[2023-07-10] MEDS: HEPARIN SODIUM/DEXTROSE 25,000 UNITS/500 ML BAG IV SCH (22:50)
[2023-07-10 22:52] LABS: Partial Thromboplastin Ratio 1.3; Partial Thromboplastin Time 35 Seconds (21-31)
[2023-07-11 07:25] LABS: BUN Creatinine Ratio 13.7 (10-20); Calcium 9.3 mg/dl (8.6-10.3); Creatinine Clr Calc Pharmacy 82.1 ml/min; Est GFR (African American) 69.2 ml/min; Est GFR (Non-African American) 59.7 ml/min; Potassium 4.3 mmol/L (3.5-5.1)
[2023-07-11 07:32] LABS: Estimated Average Glucose 111 mg/dl; Hemoglobin A1C 5.5 % (4.5-5.6)
[2023-07-11 07:33] LABS: INR 1.5 (0.9-1.1)
[2023-07-11] MEDS: CHOLECALCIFEROL 25 MCG (1000 UNITS) TAB PO SCH (08:45)
[2023-07-11] MEDS: MAGNESIUM OXIDE 400 MG TAB PO SCH (08:46)
[2023-07-11] MEDS: POTASSIUM CHLORIDE 10 MEQ TABCR PO SCH (08:46)
[2023-07-11] MEDS: OXYBUTYNIN CHLORIDE XL 5 MG TABCR PO SCH (08:46)
[2023-07-11] MEDS: DULoxetine HCL 60 MG CAP PO SCH (08:46)
--- NOTE | 2023-07-11 09:51 | Pharmacy Report ---
Glycemic Ortho Sign Off Note - Date of Service July 11, 2023 - Scope Glycemic Pharmacist consulted for glycemic control and to write orders per [facility] inpatient glycemic control protocol. - Objective Accuchecks BSG (last 24hrs):: 07/10/23 07/10/23 07/10/23 09:08 17:43 17:44 Glucose 82 POC Glucose 62 L* 67 L* 07/10/23 07/10/23 07/10/23 18:02 18:04 20:10 Glucose POC Glucose 57 L* 77 88 07/11/23 07/11/23 06:13 08:13 Glucose 87 POC Glucose 89 HbA1c:: Hemoglobin A1c 5.5 % (4.5-5.6) 07/11/23 06:13 - Assessment * Pt is maintained on oral antidiabeticagent[s]as anoutpatient with excellent control per recent A1c * Oral agents are not recommended for inpatient use d/t drug interactions, changing PO intake, and difficulty titrating for acute hyper/hypoglycemia. * Recommended regimen for inpatient use is SQ insulin * Low stress weight based insulin dosing appropriate since patient has minimal risk factors for insulin resistance (i.e. no steroids). - Plan For Inpatient Glycemic Control * Basal insulin * Not needed based on A1c (5.5% on 07/11/23), pre-op BSGs, and minimal risk factors for insulin resistance * Bolus insulin * Utilize low stress weight based NovoLog parameters per scale ACHS * Correction factor: 25 mg/dl/unit * Carb ratio: None * Pharmacy has entered glycemic orders and is signing off of the glycemic consult. We will no longer be making adjustments to inpatient regimen. Please feel free to re-consult if needed. Thank you.
--- NOTE | 2023-07-11 11:26 | Ultrasound Report ---
BILATERAL ANKLE TO BRACHIAL INDICES CLINICAL HISTORY: wound/ulceration, TBI COMPARISON STUDY: Ankle to brachial indices April 25, 2021. TECHNIQUE: Bilateral ankle and toe to brachial indices were obtained. FINDINGS: The right ankle to brachial index measured 1.25 and the left ankle to brachial index measur ed 1.29. These are similar to prior study of April 25, 2021. The right toe to brachial index measu red 1.25 and the left brachial index was mildly diminished, measuring 0.66. Toe waveforms were within normal limits. IMPRESSION: 1. Normal bilateral ankle to brachial indices. 2. Mildly diminished left toe to brachial index of 0.66. ACT 112: Negative or not required by law. Electronically signed by: Aashish Carr M.D. 07/11/2023 11:24 AM
--- NOTE | 2023-07-11 12:28 | Podiatry Consultation ---
Date of Consultation July 11, 2023 Assessment & Plan (1) Left leg cellulitis: (2) Surgical wound, non healing: Encounter type: subsequent encounter Qualified Code(s): T81.89XD - Other complications of procedures, not elsewhere classified, subsequent encounter (3) Chronic ulcer of left foot with fat layer exposed: Plan - Pt seen at bedside. - Wound cleaned with betadine, gently debrided at bedside. No deep probing noted. No palpable abscess formation. - Continue IV antibiotics. - Recommend vascular consult; arterial doppler performed, underlying small vessel vascular disease - No surgery planned based on imaging; will continue to follow, but should improve over the weekend with IV antibiotics. Consider ID consult for likely 2 weeks of oral versus IV antibiotics for this cellulitis. History of Present Illness Reason for Consultation: Left foot ulcer/cellulitis Attending Physician: Rogers Quinn MD History of Present Illness patient seen at bedside. She is a long-standing patient of ours who we have s een regularly for the last several months. In general, we see her for treatment of her nails and calluses though we have known she has a dorsal left foot wound as well. Generally, she defers any further treatment for this wound as she states she is in treatment at the local wound care center. We have confirmed that this is the case on a regular basis and have occasionally persuaded her to let us evaluate it. At her most recent visit to the wound care center, noted to have significantly worsened cellulitis and no further improvement this week. From her prior visits with her, we understood this ulceration to be the result of a prior foot surgery that failed to heal by another provider altogether. Now, it has failed to heal with wound care as well. We were consulted to assess whether any further intervention was required at this time. He has had a CT of the lower extremity and arterial Doppler testing performed at this visit. Now, she states that she is doing well on this hospitalization, with decreased systemic symptoms of infection since being admitted yesterday. Allergies Allergy/AdvReac Type Severity Reaction Status Date / Time enoxaparin Allergy Severe Hives Verified 07/10/23 07:57 doxycycline Allergy Intermediate Hives Verified 07/10/23 07:57 hydrocortisone Allergy Mild Rash Verified 07/10/23 07:57 Penicillins Allergy Unknown Unknown Verified 07/10/23 07:57 childhood reaction cephalexin Allergy Verified 07/10/23 07:57 suture AdvReac Intermediate vicryl Verified 07/10/23 07:57 nylon-non healing would Home Medications Medication Instructions Recorded Confirmed Type albuterol sulfate 90 mcg/actuation 1 inh inhalation Q6H PRN Shortness 02/10/20 07/10/23 History breath activated powder Of Breath inhaler,sensor ascorbic acid (vitamin C) 100 mg 300 mg PO QAM 02/10/20 07/10/23 History chewable tablet cetirizine 10 mg tablet (Zyrtec) 10 mg PO BID 02/10/20 07/10/23 History cholecalciferol (vitamin D3) 50 2,000 unit PO QAM 02/10/20 07/10/23 History mcg (2,000 unit) tablet (Vitamin D3) fremanezumab-vfrm 225 mg/1.5 mL 225 mg subcut MONTHLY 02/10/20 07/10/23 History subcutaneous auto-injector (Ajovy) magnesium oxide 400 mg PO QAM 02/10/20 07/10/23 History montelukast 10 mg tablet 10 mg PO HS 02/10/20 07/10/23 History (Singulair) pregabalin 200 mg capsule (Lyrica) 200 mg PO BID 02/10/20 07/10/23 History warfarin 5 mg tablet 5 - 10 mg PO DIRECTED 02/10/20 07/10/23 History multivitamin with minerals-folic 2 tab PO DAILY 09/01/20 07/10/23 History acid 200 mcg chewable tablet (Adult Multivitamin Gummies) sennosides 8.6 mg tablet (Senokot) 8.6 mg PO HS #30 tabs 09/22/20 07/10/23 Rx furosemide 20 mg tablet (Lasix) 20 mg PO BID 04/24/21 07/10/23 History potassium chloride 10 mEq 10 meq PO DAILY 04/24/21 07/10/23 History tablet,extended release(part/cryst) trazodone 100 mg tablet 200 mg PO HS PRN Sleep 04/24/21 07/10/23 History lorazepam 1 mg tablet (Ativan) 1 mg PO TID PRN Anxiety 11/11/22 07/10/23 History solifenacin 10 mg tablet 10 mg PO DAILY 12/20/22 07/10/23 History duloxetine 60 mg capsule,delayed 120 mg PO DAILY 01/09/23 07/10/23 History release (Cymbalta) clotrimazole 1 % topical cream 1 applic topical BID 05/08/23 07/10/23 History pregabalin 100 mg capsule 100 mg PO BID #60 caps 05/21/23 07/10/23 Rx metformin 500 mg tablet 2,000 mg PO HS 06/17/23 07/10/23 History tramadol 50 mg tablet 50 - 100 mg (1 - 2 x 50 mg) PO Q6H 06/23/23 07/10/23 Rx PRN pain #60 tabs carbamazepine 100 mg 100 mg PO BID 06/26/23 07/10/23 History capsule,extended release [id number] (Carbatrol) sulfamethoxazole 800 1 tab PO BID 14 days #28 tabs 07/07/23 07/10/23 Rx mg-trimethoprim 160 mg tablet (Bactrim DS) Patient History Medical History (Updated 07/11/23 @ 12:27 by Lauro Borjas DPM) Diabetes Peripheral neuropathy OAB (overactive bladder) Pain in toe of left foot Paresthesia of left foot Insulin resistance metformin BID Morbid obesity with BMI of 40.0-44.9, adult Morbid obesity Osteoarthritis Degenerative disc disease Chronic back pain GERD (gastroesophageal reflux disease) controlled Deep vein thrombosis LLE (several years ago - control pills)- on warfarin Post traumatic stress disorder Depression Anxiety Migraine on monthly Ajovy injection Asthma controlled Sleep apnea CPAP Allergic reaction to chemical substance Dysfunctional uterine bleeding Symptomatic anemia Surgical History History of dilatation and curettage S/P epidural steroid injection S/P lumbar fusion S/P foot surgery, left H/O arthroscopy of right knee x3 Right knee arthroscopy, chondroplasty (03/17/2020): LMA #4 at [facility] [place] H/O arthroscopy of left knee History of colonoscopy History of arthroscopic knee surgery History of foot surgery History of back surgery Family History Other Asthma Heart disease Hypertension No family history of adverse response to anesthesia Social History Smoking Status: Former smoker Tobacco Type: Cigarettes Cigarettes Per Day: 1/2 pack a day.; Second Hand Exposure: Yes; Do You Dip or Chew Tobacco: No; Tobacco Cessation Education Requested by Patient: No Hx Alcohol Use: Yes Alcohol type: beer Hx Substance Use: No Preferred Language: Nepali Communication Ability: Effective Newspaper Illustrator Required: No Beliefs That Will Affect Care: None Current Living Situation: Alone Current Living Situation Comment: lives with younger son Other Information That Helps Us Care for You: No Feels Safe at Home: Yes Safety Concerns: Feels Safe At This Time Assistive Devices: Cane, CPAP and Walker Review of Systems Review of Systems: All systems reviewed & are unremarkable except as noted in HPI & below Constitutional: no fever, no chills and no fatigue Eyes: no problem reported Ear, Nose, Mouth, Throat: no problem reported Respiratory: no problem reported Cardiovascular: + edema; no problem reported Gastrointestinal: no nausea, no vomiting and no problem reported Genitourinary: no problem reported Musculoskeletal: no problem reported Integumentary: + skin ulcer, + wounds and + erythema Neurologic: + loss of sensation, + numbness and + pa resthesia; no generalized weakness Psychiatric: no problem reported Physical Exam Physical Exam: lower extremity focused exam: DP/PT is 0/4 bilaterally. DFT is brisk digits, though advanced trophic changes are noted otherwise. This consists of atrophic skin changes, decreased hair growth, nail dystrophy, and this nonhealing ulceration. This dorsal foot ulceration is noted overlying the second metatarsal phalangeal joint. The ulcer itself is deep to the subcutaneous fat with a relatively healthy bed. No deep probing is noted. Fibrous slough is appreciated, though no undermining of the wound edges is noted. The wound itself measures 1.6 x 1.0 x 0.3 cm. There is cellulitis extending up to the proximal tibia and is well demarcated with marker prior exam, likely by the e mergency department. It has not progressed past the delineation. Pain sensation is intact to the ulceration with relative decrease in sensation globally to the foot and ankle otherwise. Constitutional: WD/WN, vitals as above + ill appearing and + obese Eyes: PERRL, conjunctivae normal, anicteric sclerae ENMT: external ear and nose normal, oropharynx normal Neck: trachea midline, no thyromegaly normal visual inspection Respiratory: normal respiratory effort; no respiratory distress Cardiovascular: Rate/Rhythm: regular rate and regular rhythm Chest (Breasts): Chest: normal inspection of chest Gastrointestinal (Abdomen): Inspection/Auscultation: abdomen normal to inspection Percussion/Palpation: + abdomen tender and abdomen soft Musculoskeletal: no cyanosis or clubbing, extremities motor strength 5/5 Head/Neck/Chest: normocephalic and head atraumatic Extremities: extremities normal to inspection Skin: + ulcer, + wound, + skin atrophy and + n ails dystrophic Neurologic: moves all extremities and awake; no focal motor deficits Psychiatric: A+Ox3, euthymic affect Results & Data Vital Signs (Past 12 Hours) Vital Signs Temp Pulse Resp BP Pulse Ox O2 Del Method 07/11/23 11:17 37.1 C 57 L 18 114/77 96 Room Air 07/11/23 08:01 36.7 C 74 16 126/74 98 Room Air 07/11/23 04:09 12 07/11/23 04:00 36.5 C 65 18 108/57 L 96 Room Air 07/11/23 00:57 Room Air
--- NOTE | 2023-07-11 15:22 | Hospitalist Progress Note ---
Date of Service July 11, 2023 Assessment & Plan (1) Chronic venous insufficiency: (2) Staph infection: (3) Peripheral neuropathy: (4) DVT (deep venous thrombosis): (5) Current use of senior living anticoagulation: (6) Diabetes: (7) Migraine: (8) Sleep apnea: (9) Morbid obesity with BMI of 40.0-44.9, adult: (10) OAB (overactive bladder): (11) Depression: Plan: 58 year old F presents to the ED as recommended by the wound care clinic today after continued deterioration of a chronic dorsal left foot wound in the setting of chronic venous insufficiency s/p L GSV ablation 07/22. Patient started on Bactrim DS 3 days ago for wound cultures growing staph. She has had worsening neuropathy in the left lower extremity. No leukocytosis, does not appear septic or toxic. On examination patient left foot with erythema and cellulitis with lymphangitis streaking up the hollins to mid hollins. Ankle x-ray indicates soft tissue swelling without osseous involvement. Compliant on all of her medications including Coumadin; however, has only had one therapeutic INR result as an outpatient over the past month. Will be admitted for further evaluation and management of her deteriorating, poorly healing dorsal foot infection and lymphangitis in the setting of chronic venous insufficiency s/p L GSV ablation 07/2021. Will obtain foot CT to rule out osteomyelitis, rule out clot due to subtherapeutic INR with LLE Doppler US, obtain CRP, continue IV antibiotics and adjust based on wound cultures, WOCN consult placed and continue other medicines for chronic comorbidities. Consider involving infectious disease if no noted improvement. Cellulitis of foot, left: Chronic venous insufficiency: History of staph infection: Peripheral neuropathy: Chronic In the setting of delayed wound healing status post left GSV ablation 07/[address] Dueñas at [facility] [place]; last appointment 12/31 who indicated no surgery at that time Has been following with WOCN as outpatient most recent dressings with aqua seal; new orthotics Darco shoe given to patient at most recent appointment Follows with pain management due to persistent neuropathy in left lower extremity; Next appointment Friday 07/14 No leukocytosis; does not appear toxic Parents CRP is mildly elevated at 2.90 Takes pregabalin and carbamazepine; continue CT foot negative for osteomyelitis/abscess Started on Ancef in ED; continue and adjust based on wound culture results Appreciate podiatry input and recommendation Has had local minimal debridement which the wound requires right now No further surgery indicated Wound culture is growing Staph aureus and that is sensitive to oxacillin Will continue current antibiotic of cefazolin History of DVT: Current use of long-term anticoagulation: Chronic DVT x 2 LLE over 10 years ago Compliant with Coumadin As outpatient subtherapeutic INR's over past month with only 1 being in the 2-3 range Most recent INR 07/08/2023; 1.9 LE Doppler US negative for DVT Pt with noted enoxaparin allergy; per EMR link in 2007, patient has numerous coagulopathies noted and was seen by Dr. Sukh Espinoza; she no longer follows with him. It appears that she has been seen numerous times through coagulation clinic and have tried numerous LMWH therapies, but appears Coumadin was the best suited. Recommend following with Heme as an OPT INR noted to be 1.5 today Coumadin 10 mg given today and recheck INR tomorrow [id number] diabetes: Chronic [id number] Prescribed metformin Most recent A1c 04/26; 5.4 Diabetic diet SSI ACHS while inpatient Migraine: Chronic Takes Ajovy monthly; has not taken it in July RAYMOND: Morbid obesity: Chronic CPAP at night OAB: Chronic Takes Vesicare; continue Depression: Takes duloxetine; continue Disposition: PCP: Dr. Reed Code Status: Full Code VTE Prophylaxis: On Coumadin; given subtherapeutic; Allergic to heparin Admission and Anticipated Discharge Date Admission Date: July 10, 2023 Subjective 07/11/2023 The patient was seen and examined in medical telemetry She was brought in with worsening left leg and foot cellulitis Did have more pain but no fever and or chills Denies any chest pain and no shortness of breath Review of Systems Review of Systems: All systems reviewed and are unremarkable except as noted below Physical Exam Physical Exam: Sitting on a chair without any acute distress Constitutional: well developed, well nourished, + ill appearing and + obese Eyes: PERRL, conjunctivae normal, anicteric sclerae ENMT: external ear and nose normal, oropharynx normal Neck: trachea midline, no thyromegaly Respiratory: no respiratory distress Auscultation: lungs clear to auscultation bilaterally Cardiovascular: Rate/Rhythm: regular rate, regular rhythm and + bradycardic Heart Sounds: normal S1 and normal S2; no murmur Extremities: + edema Gastrointestinal (Abdomen): Inspection/Auscultation: normal bowel sounds; abdomen not distended Percussion/Palpation: abdomen soft; abdomen nontender Musculoskeletal: No acute arthritis involving any of the joints Skin: Left foot is bandaged. Chronic skin changes left lower leg. Erythema has decreased Neurologic: normal touch/pain/proprioception and moves all extremities; no focal motor deficits Lymphatic: no cervical or axillary lymphadenopathy Results & Data Results & Data Vital Signs (Past 12 Hours) Vital Signs Temp Pulse Pulse Resp BP Pulse Ox O2 Del Method 07/11/23 11:17 37.1 C 57 L 18 114/77 96 Room Air 07/11/23 08:01 36.7 C 74 16 126/74 98 Room Air 07/11/23 05:56 94 H 07/11/23 04:09 12 07/11/23 04:00 36.5 C 65 18 108/57 L 96 Room Air Laboratory Results [facility] 07/11/23 06:13 Sodium 141 Potassium 4.3 Chloride 106 Carbon Dioxide 27 BUN 14 Creatinine 1.02 Glucose 87 Calcium 9.3 Medications Administered Current Inpatient Medications Acetaminophen (Acetaminophen 325 Mg Tab) 650 mg PO Q4H PRN PRN Reason: Pain or Fever Stop: 08/09/23 12:58 Al Hydrox/Mg Hydrox/Simethicone (Aluminum/Magnesium Susp 30 Ml Udc) 15 ml PO Q4H PRN PRN Reason: Dyspepsia Stop: 08/09/23 12:58 Carbamazepine (Carbamazepine Xr 100 Mg Tabcr) 100 mg PO BID LUAN Stop: 08/09/23 20:59 Last Admin: 07/11/23 08:45 Dose: 100 mg Cetirizine HCl (Cetirizine Hcl 10 Mg Tablet) 10 mg PO BID LUAN Stop: 08/09/23 20:59 Last Admin: 07/11/23 08:45 Dose: 10 mg Dextrose (Dextrose 50% 50 Ml Syringe) 25 - 50 ml IV UD PRN; Protocol PRN Reason: Hypoglycemia Protocol Stop: 08/09/23 18:03 Duloxetine HCl (Duloxetine Hcl 60 Mg Cap) 120 mg PO DAILY LUAN Stop: 08/10/23 08:59 Last Admin: 07/11/23 08:46 Dose: 120 mg Furosemide (Furosemide 20 Mg Tab) 20 mg PO BID17 LUAN Stop: 08/09/23 16:59 Last Admin: 07/11/23 08:46 Dose: 20 mg Glucagon (Glucagon For Inj 1 Mg Vial) 1 mg SQ UD PRN; Protocol PRN Reason: Hypoglycemia Protocol Stop: 08/09/23 18:03 Glucose (Glucose 40% Gel 15 Gm Tube) 15 - 30 gm PO UD PRN; Protocol PRN Reason: Hypoglycemia Protocol Stop: 08/09/23 18:03 Glucose (Glucose 10 Tab/Tube) 4 - 8 tab PO UD PRN; Protocol PRN Reason: Hypoglycemia Treatment Stop: 08/09/23 18:03 Cefazolin Sodium (Ancef 2000mg) 2,000 mg in 15 mls @ 3.75 mls/min IV Q8H LUAN Stop: 07/17/23 16:59 Last Admin: 07/11/23 08:45 Dose: 3.75 mls/min Insulin Aspart (Insulin Aspart Per Unit Charge) 0 units SC ACHS LUAN Stop: 08/09/23 20:59 Last Admin: 07/11/23 13:09 Dose: Not Given Lorazepam (Lorazepam 1 Mg Tab) 1 mg PO TID PRN PRN Reason: Anxiety Stop: 08/09/23 13:59 Magnesium Hydroxide (Magnesium Hydroxide Susp 30 Ml Udc) 30 ml PO Q12H PRN PRN Reason: Constipation Stop: 08/09/23 12:58 Magnesium Oxide (Magnesium Oxide 400 Mg Tab) 400 mg PO QAM LUAN Stop: 08/10/23 08:59 Last Admin: 07/11/23 08:46 Dose: 400 mg Miscellaneous (Carbohydrates For Hypoglycemia ) 15 - 30 gm PO UD PRN PRN Reason: Hypoglycemia Protocol Stop: 08/09/23 18:03 Last Admin: 07/10/23 17:43 Dose: 15 gm Montelukast Sodium (Montelukast Sodium 10 Mg Tablet) 10 mg PO HS LUAN Stop: 08/09/23 20:59 Last Admin: 07/10/23 21:15 Dose: 10 mg Ondansetron HCl (Ondansetron Inj 2 Mg/Ml 2 Ml Vial) 4 mg IV Q6H PRN PRN Reason: Nausea Stop: 08/09/23 12:58 Oxybutynin Chloride (Oxybutynin Chloride Xl 5 Mg Tabcr) 10 mg PO DAILY LUAN Stop: 08/10/23 08:59 Last Admin: 07/11/23 08:46 Dose: 10 mg Oxycodone HCl (Oxycodone Hcl Ir 5 Mg Tab (Immediate Release)) 5 mg PO Q6H PRN PRN Reason: Mod-Sev Pain (Scale 4-10) Stop: 07/24/23 21:15 Last Admin: 07/10/23 21:29 Dose: 5 mg Polyethylene Glycol (Polyethylene (Miralax) 17 Gm Pack) 17 gm PO DAILY PRN PRN Reason: Constipation Stop: 08/09/23 12:58 Potassium Chloride (Potassium Chloride 10 Meq Tabcr) 10 meq PO DAILY LUAN Stop: 08/10/23 08:59 Last Admin: 07/11/23 08:46 Dose: 10 meq Pregabalin (Pregabalin 100 Mg Cap) 100 mg PO BID LUAN Stop: 08/09/23 20:59 Last Admin: 07/11/23 08:44 Dose: 100 mg Pregabalin (Pregabalin 100 Mg Cap) 200 mg PO BID LUAN Stop: 08/09/23 20:59 Last Admin: 07/11/23 08:45 Dose: 200 mg Sennosides (Senna 8.6 Mg Tab) 8.6 mg PO HS LUAN Stop: 08/09/23 20:59 Last Admin: 07/10/23 21:15 Dose: 8.6 mg Trazodone HCl (Trazodone Hcl 100 Mg Tab) 200 mg PO HS PRN PRN Reason: Sleep Stop: 08/09/23 13:59 Last Admin: 07/10/23 21:45 Dose: 200 mg Vitamin D (Cholecalciferol 25 Mcg (1000 Units) Tab) 50 mcg PO QAM LUAN Stop: 08/10/23 08:59 Last Admin: 07/11/23 08:45 Dose: 50 mcg
[2023-07-11] MEDS ORDERED: WARFARIN SOD 10 MG TAB PO SCH (16:00)
[2023-07-11] MEDS: WARFARIN SOD 10 MG TAB PO ONE (16:55)
[2023-07-12 06:12] LABS: Basophils # (auto) 0.04 K/uL (0.00-0.20); Basophils % (auto) 1.1 %; Eosinophils # (auto) 0.14 K/uL (0.00-0.50); Eosinophils % (auto) 3.8 %; Hematocrit (blood only) 39.1 % (37.0-47.0); Hemoglobin 12.6 g/dl (12.0-16.0); Lymphocytes # (auto) 1.67 K/uL (1.20-3.40); Lymphocytes % (auto) 45.8 %; Mean Corpuscular Hemoglobin 28.4 pg (25.0-34.0); Mean Corpuscular Hgb Conc 32.2 g/dL (32.0-36.0); Mean Corpuscular Volume 88.1 fL (80.0-100.0); Mean Platelet Volume 10.4 fL (9.4-12.4); Monocytes # (auto) 0.29 K/uL (0.11-0.59); Monocytes % (auto) 7.9 %; Neutrophils # (auto) 1.51 K/uL (1.40-6.50); Neutrophils % (auto) 41.4 %; Platelet Count 240 K/uL (130-400); RDW Coefficient of Variation 14.2 % (11.5-14.5); RDW Standard Deviation 45.3 fL (36.4-46.3); Red Blood Count 4.44 M/uL (4.20-5.40); White Blood Count 3.65 K/ul (4.8-10.8)
[2023-07-12 06:18] LABS: INR 1.2 (0.9-1.1); Prothrombin Time 12.7 Seconds (9.0-12.0)
[2023-07-12 06:32] LABS: BUN Creatinine Ratio 20.9 (10-20); Calcium 9.5 mg/dl (8.6-10.3); Creatinine Clr Calc Pharmacy 96.7 ml/min; Est GFR (African American) 85.1 ml/min; Est GFR (Non-African American) 73.4 ml/min; Potassium 3.9 mmol/L (3.5-5.1)
--- NOTE | 2023-07-12 14:02 | Hospitalist Progress Note ---
Date of Service July 12, 2023 Assessment & Plan (1) Chronic venous insufficiency: (2) Staph infection: (3) Peripheral neuropathy: (4) DVT (deep venous thrombosis): (5) Current use of fci anticoagulation: (6) Diabetes: (7) Migraine: (8) Sleep apnea: (9) Morbid obesity with BMI of 40.0-44.9, adult: (10) OAB (overactive bladder): (11) Depression: Plan: 58 year old F presents to the ED as recommended by the wound care clinic today after continued deterioration of a chronic dorsal left foot wound in the setting of chronic venous insufficiency s/p L GSV ablation 07/22. Patient started on Bactrim DS 3 days ago for wound cultures growing staph. She has had worsening neuropathy in the left lower extremity. No leukocytosis, does not appear septic or toxic. On examination patient left foot with erythema and cellulitis with lymphangitis streaking up the hollins to mid hollins. Ankle x-ray indicates soft tissue swelling without osseous involvement. Compliant on all of her medications including Coumadin; however, has only had one therapeutic INR result as an outpatient over the past month. Will be admitted for further evaluation and management of her deteriorating, poorly healing dorsal foot infection and lymphangitis in the setting of chronic venous insufficiency s/p L GSV ablation 07/2021. Will obtain foot CT to rule out osteomyelitis, rule out clot due to subtherapeutic INR with LLE Doppler US, obtain CRP, continue IV antibiotics and adjust based on wound cultures, WOCN consult placed and continue other medicines for chronic comorbidities. Consider involving infectious disease if no noted improvement. Cellulitis of foot, left: Chronic venous insufficiency: History of staph infection: Peripheral neuropathy: Chronic In the setting of delayed wound healing status post left GSV ablation 07/[address] Dueñas at [facility]; last appointment 12/31 who indicated no surgery at that time Has been following with WOCN as outpatient most recent dressings with aqua seal; new orthotics Darco shoe given to patient at most recent appointment Follows with pain management due to persistent neuropathy in left lower extremity; Next appointment Friday 07/14 No leukocytosis; does not appear toxic Parents CRP is mildly elevated at 2.90 Takes pregabalin and carbamazepine; continue CT foot negative for osteomyelitis/abscess Started on Ancef in ED; continue and adjust based on wound culture results Appreciate podiatry input and recommendation Has had local minimal debridement which the wound requires right now No further surgery indicated Wound culture is growing Staph aureus and that is sensitive to oxacillin Will continue current antibiotic of cefazolin Blood cultures have been negative-wound culture Staph aureus sensitive to ox acillin. Has been getting cefazolin and will continue History of DVT: Current use of long-term anticoagulation: Chronic DVT x 2 LLE over 10 years ago Compliant with Coumadin As outpatient subtherapeutic INR's over past month with only 1 being in the 2-3 range Most recent INR 07/08/2023; 1.9 LE Doppler US negative for DVT Pt with noted enoxaparin allergy; per EMR link in 2007, patient has numerous coagulopathies noted and was seen by Dr. Sukh Espinoza; she no longer follows with him. It appears that she has been seen numerous times through coagulation clinic and have tried numerous LMWH therapies, but appears Coumadin was the best suited. Recommend following with Heme as an OPT INR noted to be 1.5 today INR remains low at 1.2 and will give 10 mg of Coumadin tonight [id number] diabetes: Chronic [id number] Prescribed metformin Most recent A1c 04/26; 5.4 Diabetic diet SSI ACHS while inpatient-blood sugar is maintaining Migraine: Chronic Takes Ajovy monthly; has not taken it in July RAYMOND: Morbid obesity: Chronic CPAP at night OAB: Chronic Takes Vesicare; continue Depression: Takes duloxetine; continue Disposition: PCP: Dr. Reed Code Status: Full Code VTE Prophylaxis: On Coumadin; given subtherapeutic; Allergic to heparin Admission and Anticipated Discharge Date Admission Date: July 10, 2023 Subjective 07/11/2023 The patient was seen and examined in medical telemetry She was brought in with worsening left leg and foot cellulitis Did have more pain but no fever and or chills Denies any chest pain and no shortness of breath 07/12/2023 The patient was seen and examined in medical telemetry unit She has been feeling much better Left leg pain is better. Swelling and redness have improved too Denies any fever and chills Review of Systems Review of Systems: All systems reviewed and are unremarkable except as noted below Physical Exam Physical Exam: Sitting on a chair without any acute distress Constitutional: well developed, well nourished, + ill appearing and + obese Eyes: PERRL, conjunctivae normal, anicteric sclerae ENMT: external ear and nose normal, oropharynx normal Neck: trachea midline, no thyromegaly Respiratory: no respiratory distress Auscultation: lungs clear to auscultation bilaterally Cardiovascular: Rate/Rhythm: regular rate, regular rhythm and + bradycardic Heart Sounds: normal S1 and normal S2; no murmur Extremities: + edema Gastrointestinal (Abdomen): Inspection/Auscultation: normal bowel sounds; abdomen not distended Percussion/Palpation: abdomen soft; abdomen nontender Musculoskeletal: No acute arthritis involving any of the joints Skin: Left foot wound as in the picture Neurologic: normal touch/pain/proprioception and moves all extremities; no focal motor deficits Lymphatic: no cervical or axillary lymphadenopathy Results & Data Results & Data Vital Signs (Past 12 Hours) Vital Signs Temp Pulse Pulse Resp BP Pulse Ox O2 Del Method 07/12/23 12:15 CPAP 07/12/23 11:04 36.7 C 68 14 136/83 96 Room Air 07/12/23 07:47 57 L 07/12/23 07:27 36.6 C 61 14 151/97 H 99 Room Air 07/12/23 04:31 36.6 C 62 18 124/79 92 CPAP 07/12/23 02:42 14 95 Laboratory Results Short CBC 07/12/23 Range/Units 05:49 WBC 3.65 L (4.8-10.8) K/ul Hgb 12.6 (12.0-16.0) g/dl Hct 39.1 (37.0-47.0) % Plt Count 240 (130-400) K/uL [facility] 07/12/23 05:49 Sodium 141 Potassium 3.9 Chloride 106 Carbon Dioxide 27 BUN 18 Creatinine 0.86 Glucose 86 Calcium 9.5 Medications Administered Current Inpatient Medications Acetaminophen (Acetaminophen 325 Mg Tab) 650 mg PO Q4H PRN PRN Reason: Pain or Fever Stop: 08/09/23 12:58 Al Hydrox/Mg Hydrox/Simethicone (Aluminum/Magnesium Susp 30 Ml Udc) 15 ml PO Q4H PRN PRN Reason: Dyspepsia Stop: 08/09/23 12:58 Carbamazepine (Carbamazepine Xr 100 Mg Tabcr) 100 mg PO BID LUAN Stop: 08/09/23 20:59 Last Admin: 07/12/23 08:22 Dose: 100 mg Cetirizine HCl (Cetirizine Hcl 10 Mg Tablet) 10 mg PO BID LUAN Stop: 08/09/23 20:59 Last Admin: 07/12/23 08:21 Dose: 10 mg Dextrose (Dextrose 50% 50 Ml Syringe) 25 - 50 ml IV UD PRN; Protocol PRN Reason: Hypoglycemia Protocol Stop: 08/09/23 18:03 Duloxetine HCl (Duloxetine Hcl 60 Mg Cap) 120 mg PO DAILY LUAN Stop: 08/10/23 08:59 Last Admin: 07/12/23 08:22 Dose: 120 mg Furosemide (Furosemide 20 Mg Tab) 20 mg PO BID17 LUAN Stop: 08/09/23 16:59 Last Admin: 07/12/23 08:22 Dose: 20 mg Glucagon (Glucagon For Inj 1 Mg Vial) 1 mg SQ UD PRN; Protocol PRN Reason: Hypoglycemia Protocol Stop: 08/09/23 18:03 Glucose (Glucose 40% Gel 15 Gm Tube) 15 - 30 gm PO UD PRN; Protocol PRN Reason: Hypoglycemia Protocol Stop: 08/09/23 18:03 Glucose (Glucose 10 Tab/Tube) 4 - 8 tab PO UD PRN; Protocol PRN Reason: Hypoglycemia Treatment Stop: 08/09/23 18:03 Cefazolin Sodium (Ancef 2000mg) 2,000 mg in 15 mls @ 3.75 mls/min IV Q8H LUAN Stop: 07/17/23 16:59 Last Admin: 07/12/23 08:22 Dose: 3.75 mls/min Insulin Aspart (Insulin Aspart Per Unit Charge) 0 units SC ACHS LUAN Stop: 08/09/23 20:59 Last Admin: 07/12/23 12:49 Dose: Not Given Lorazepam (Lorazepam 1 Mg Tab) 1 mg PO TID PRN PRN Reason: Anxiety Stop: 08/09/23 13:59 Magnesium Hydroxide (Magnesium Hydroxide Susp 30 Ml Udc) 30 ml PO Q12H PRN PRN Reason: Constipation Stop: 08/09/23 12:58 Magnesium Oxide (Magnesium Oxide 400 Mg Tab) 400 mg PO QAM LUAN Stop: 08/10/23 08:59 Last Admin: 07/12/23 08:22 Dose: 400 mg Miscellaneous (Carbohydrates For Hypoglycemia ) 15 - 30 gm PO UD PRN PRN Reason: Hypoglycemia Protocol Stop: 08/09/23 18:03 Last Admin: 07/10/23 17:43 Dose: 15 gm Montelukast Sodium (Montelukast Sodium 10 Mg Tablet) 10 mg PO HS LUAN Stop: 08/09/23 20:59 Last Admin: 07/11/23 19:46 Dose: 10 mg Ondansetron HCl (Ondansetron Inj 2 Mg/Ml 2 Ml Vial) 4 mg IV Q6H PRN PRN Reason: Nausea Stop: 08/09/23 12:58 Oxybutynin Chloride (Oxybutynin Chloride Xl 5 Mg Tabcr) 10 mg PO DAILY LUNA Stop: 08/10/23 08:59 Last Admin: 07/12/23 08:22 Dose: 10 mg Oxycodone HCl (Oxycodone Hcl Ir 5 Mg Tab (Immediate Release)) 5 mg PO Q6H PRN PRN Reason: Mod-Sev Pain (Scale 4-10) Stop: 07/24/23 21:15 Last Admin: 07/11/23 23:54 Dose: 5 mg Polyethylene Glycol (Polyethylene (Miralax) 17 Gm Pack) 17 gm PO DAILY PRN PRN Reason: Constipation Stop: 08/09/23 12:58 Potassium Chloride (Potassium Chloride 10 Meq Tabcr) 10 meq PO DAILY LUAN Stop: 08/10/23 08:59 Last Admin: 07/12/23 08:22 Dose: 10 meq Pregabalin (Pregabalin 100 Mg Cap) 100 mg PO BID LUAN Stop: 08/09/23 20:59 Last Admin: 07/12/23 08:21 Dose: 100 mg Pregabalin (Pregabalin 100 Mg Cap) 200 mg PO BID LUAN Stop: 08/09/23 20:59 Last Admin: 07/12/23 08:21 Dose: 200 mg Sennosides (Senna 8.6 Mg Tab) 8.6 mg PO HS LUAN Stop: 08/09/23 20:59 Last Admin: 07/11/23 19:46 Dose: 8.6 mg Trazodone HCl (Trazodone Hcl 100 Mg Tab) 200 mg PO HS PRN PRN Reason: Sleep Stop: 08/09/23 13:59 Last Admin: 07/11/23 23:54 Dose: 200 mg Vitamin D (Cholecalciferol 25 Mcg (1000 Units) Tab) 50 mcg PO QAM LUAN Stop: 08/10/23 08:59 Last Admin: 07/12/23 08:22 Dose: 50 mcg Warfarin Sodium (Warfarin Sod 10 Mg Tab) 10 mg PO DAILY@1600 [facility] Stop: 08/11/23 15:59
[2023-07-12] MEDS: WARFARIN SOD 10 MG TAB PO SCH (17:41)
[2023-07-13 06:47] LABS: INR 1.1 (0.9-1.1)
--- NOTE | 2023-07-13 11:54 | Hospitalist Progress Note ---
Date of Service July 13, 2023 Assessment & Plan (1) Chronic venous insufficiency: (2) Staph infection: (3) Peripheral neuropathy: (4) DVT (deep venous thrombosis): (5) Current use of skilled nursing anticoagulation: (6) Diabetes: (7) Migraine: (8) Sleep apnea: (9) Morbid obesity with BMI of 40.0-44.9, adult: (10) OAB (overactive bladder): (11) Depression: Plan: 58 year old F presents to the ED as recommended by the wound care clinic today after continued deterioration of a chronic dorsal left foot wound in the setting of chronic venous insufficiency s/p L GSV ablation 07/22. Patient started on Bactrim DS 3 days ago for wound cultures growing staph. She has had worsening neuropathy in the left lower extremity. No leukocytosis, does not appear septic or toxic. On examination patient left foot with erythema and cellulitis with lymphangitis streaking up the hollins to mid hollins. Ankle x-ray indicates soft tissue swelling without osseous involvement. Compliant on all of her medications including Coumadin; however, has only had one therapeutic INR result as an outpatient over the past month. Will be admitted for further evaluation and management of her deteriorating, poorly healing dorsal foot infection and lymphangitis in the setting of chronic venous insufficiency s/p L GSV ablation 07/2021. Will obtain foot CT to rule out osteomyelitis, rule out clot due to subtherapeutic INR with LLE Doppler US, obtain CRP, continue IV antibiotics and adjust based on wound cultures, WOCN consult placed and continue other medicines for chronic comorbidities. Consider involving infectious disease if no noted improvement. Cellulitis of foot, left: Chronic venous insufficiency: History of staph infection: Peripheral neuropathy: Chronic In the setting of delayed wound healing status post left GSV ablation 07/[address] Dueñas at [facility] [place]; last appointment 12/31 who indicated no surgery at that time Has been following with WOCN as outpatient most recent dressings with aqua seal; new orthotics Darco shoe given to patient at most recent appointment Follows with pain management due to persistent neuropathy in left lower extremity; Next appointment Friday 07/14 No leukocytosis; does not appear toxic Parents CRP is mildly elevated at 2.90 Takes pregabalin and carbamazepine; continue CT foot negative for osteomyelitis/abscess Started on Ancef in ED; continue and adjust based on wound culture results Appreciate podiatry input and recommendation Has had local minimal debridement which the wound requires right now No further surgery indicated Wound culture is growing Staph aureus and that is sensitive to oxacillin Will continue current antibiotic of cefazolin Blood cultures have been negative-wound culture Staph aureus sensitive to ox acillin. Has been getting cefazolin and will continue Left foot cellulitis has been improving with decreasing pain and redness and drainage from the wound Will continue current management with IV antibiotic and dressing as per the wound care nurse Will get vascular surgery evaluation tomorrow History of DVT: Current use of long-term anticoagulation: Chronic DVT x 2 LLE over 10 years ago Compliant with Coumadin As outpatient subtherapeutic INR's over past month with only 1 being in the 2-3 range Most recent INR 07/08/2023; 1.9 LE Doppler US negative for DVT Pt with noted enoxaparin allergy; per EMR link in 2007, patient has numerous coagulopathies noted and was seen by Dr. Sukh Espinoza; she no longer follows with him. It appears that she has been seen numerous times through coagulation clinic and have tried numerous LMWH therapies, but appears Coumadin was the best suited. Recommend following with Heme as an OPT INR noted to be 1.5 today INR remains low at 1.2 and will give 10 mg of Coumadin tonight Her INR remains subtherapeutic likely secondary to interaction with Coumadin and cefazolin Outpatient records reviewed and she has been receiving heparin for her interstitial cystitis without any problem Discussed with the pharmacist and she will be given preventive dose of heparin on top of Coumadin Will check INR tomorrow [id number] diabetes: Chronic [id number] Prescribed metformin Most recent A1c 04/26; 5.4 Diabetic diet SSI ACHS while inpatient-blood sugar is maintaining Migraine: Chronic Takes Ajovy monthly; has not taken it in July RAYMOND: Morbid obesity: Chronic CPAP at night OAB: Chronic Takes Vesicare; continue Depression: Takes duloxetine; continue Disposition: PCP: Dr. Reed Code Status: Full Code VTE Prophylaxis: On Coumadin; given subtherapeutic; Allergic to heparin Admission and Anticipated Discharge Date Admission Date: July 10, 2023 Subjective 07/11/2023 The patient was seen and examined in medical telemetry She was brought in with worsening left leg and foot cellulitis Did have more pain but no fever and or chills Denies any chest pain and no shortness of breath 07/12/2023 The patient was seen and examined in medical telemetry unit She has been feeling much better Left leg pain is better. Swelling and redness have improved too Denies any fever and chills 07/13/2023 The patient was seen and examined in telemetry unit She has been feeling a lot better Denies any significant symptoms-no fever and or chills, denies any pain in the left lower extremity or foot She has been getting heparin for her interstitial cystitis as an outpatient Review of Systems Review of Systems: All systems reviewed and are unremarkable except as noted below Physical Exam 2 Physical Exam: Sitting on a chair without any acute distress Constitutional: well developed, well nourished, + ill appearing and + obese Eyes: PERRL, conjunctivae normal, anicteric sclerae ENMT: external ear and nose normal, oropharynx normal Neck: trachea midline, no thyromegaly Respiratory: no respiratory distress Auscultation: lungs clear to auscultation bilaterally Cardiovascular: Rate/Rhythm: regular rate, regular rhythm and + bradycardic Heart Sounds: normal S1 and normal S2; no murmur Extremities: + edema Gastrointestinal (Abdomen): Inspection/Auscultation: normal bowel sounds; abdomen not distended Percussion/Palpation: abdomen soft; abdomen nontender Musculoskeletal: No acute arthritis involving any of the joints Neurologic: normal touch/pain/proprioception and moves all extremities; no focal motor deficits Lymphatic: no cervical or axillary lymphadenopathy Results & Data Results & Data Vital Signs (Past 12 Hours) Vital Signs Temp Pulse Pulse Resp BP BP Pulse Ox 07/13/23 11:40 36.7 C 69 18 163/74 H 97 07/13/23 08:11 36.3 C L 57 L 16 135/85 96 07/13/23 07:13 51 L 07/13/23 04:01 36.6 C 77 16 139/88 97 O2 Del Method 07/13/23 11:40 Room Air 07/13/23 08:11 Room Air 07/13/23 07:13 07/13/23 04:01 Room Air, BiPAP Medications Administered Current Inpatient Medications Acetaminophen (Acetaminophen 325 Mg Tab) 650 mg PO Q4H PRN PRN Reason: Pain or Fever Stop: 08/09/23 12:58 Al Hydrox/Mg Hydrox/Simethicone (Aluminum/Magnesium Susp 30 Ml Udc) 15 ml PO Q4H PRN PRN Reason: Dyspepsia Stop: 08/09/23 12:58 Carbamazepine (Carbamazepine Xr 100 Mg Tabcr) 100 mg PO BID LUAN Stop: 08/09/23 20:59 Last Admin: 07/13/23 08:30 Dose: 100 mg Cetirizine HCl (Cetirizine Hcl 10 Mg Tablet) 10 mg PO BID LUAN Stop: 08/09/23 20:59 Last Admin: 07/13/23 08:31 Dose: 10 mg Dextrose (Dextrose 50% 50 Ml Syringe) 25 - 50 ml IV UD PRN; Protocol PRN Reason: Hypoglycemia Protocol Stop: 08/09/23 18:03 Duloxetine HCl (Duloxetine Hcl 60 Mg Cap) 120 mg PO DAILY LUAN Stop: 08/10/23 08:59 Last Admin: 07/13/23 08:31 Dose: 120 mg Furosemide (Furosemide 20 Mg Tab) 20 mg PO [id number] LUAN Stop: 08/09/23 16:59 Last Admin: 07/13/23 08:31 Dose: 20 mg Glucagon (Glucagon For Inj 1 Mg Vial) 1 mg SQ UD PRN; Protocol PRN Reason: Hypoglycemia Protocol Stop: 08/09/23 18:03 Glucose (Glucose 40% Gel 15 Gm Tube) 15 - 30 gm PO UD PRN; Protocol PRN Reason: Hypoglycemia Protocol Stop: 08/09/23 18:03 Glucose (Glucose 10 Tab/Tube) 4 - 8 tab PO UD PRN; Protocol PRN Reason: Hypoglycemia Treatment Stop: 08/09/23 18:03 Heparin Sodium (Porcine) (Heparin Sod 5,000 Unit/0.5 Ml Vial) 5,000 units SQ Q12 LUAN; Protocol Stop: 08/12/23 10:49 Cefazolin Sodium (Ancef 2000mg) 2,000 mg in 15 mls @ 3.75 mls/min IV Q8H LUAN Stop: 07/17/23 16:59 Last Admin: 07/13/23 08:31 Dose: 3.75 mls/min Insulin Aspart (Insulin Aspart Per Unit Charge) 0 units SC ACHS LUAN Stop: 08/09/23 20:59 Last Admin: 07/13/23 08:29 Dose: Not Given Lorazepam (Lorazepam 1 Mg Tab) 1 mg PO TID PRN PRN Reason: Anxiety Stop: 08/09/23 13:59 Magnesium Hydroxide (Magnesium Hydroxide Susp 30 Ml Udc) 30 ml PO Q12H PRN PRN Reason: Constipation Stop: 08/09/23 12:58 Magnesium Oxide (Magnesium Oxide 400 Mg Tab) 400 mg PO QAM LUAN Stop: 08/10/23 08:59 Last Admin: 07/13/23 08:31 Dose: 400 mg Miscellaneous (Carbohydrates For Hypoglycemia ) 15 - 30 gm PO UD PRN PRN Reason: Hypoglycemia Protocol Stop: 08/09/23 18:03 Last Admin: 07/10/23 17:43 Dose: 15 gm Montelukast Sodium (Montelukast Sodium 10 Mg Tablet) 10 mg PO HS [facility] Stop: 08/09/23 20:59 Last Admin: 07/12/23 20:45 Dose: 10 mg Ondansetron HCl (Ondansetron Inj 2 Mg/Ml 2 Ml Vial) 4 mg IV Q6H PRN PRN Reason: Nausea Stop: 08/09/23 12:58 Oxybutynin Chloride (Oxybutynin Chloride Xl 5 Mg Tabcr) 10 mg PO DAILY LUAN Stop: 08/10/23 08:59 Last Admin: 07/13/23 08:31 Dose: 10 mg Oxycodone HCl (Oxycodone Hcl Ir 5 Mg Tab (Immediate Release)) 5 mg PO Q6H PRN PRN Reason: Mod-Sev Pain (Scale 4-10) Stop: 07/24/23 21:15 Last Admin: 07/13/23 08:30 Dose: 5 mg Polyethylene Glycol (Polyethylene (Miralax) 17 Gm Pack) 17 gm PO DAILY PRN PRN Reason: Constipation Stop: 08/09/23 12:58 Potassium Chloride (Potassium Chloride 10 Meq Tabcr) 10 meq PO DAILY LUAN Stop: 08/10/23 08:59 Last Admin: 07/13/23 08:31 Dose: 10 meq Pregabalin (Pregabalin 100 Mg Cap) 100 mg PO BID LUAN Stop: 08/09/23 20:59 Last Admin: 07/13/23 08:30 Dose: 100 mg Pregabalin (Pregabalin 100 Mg Cap) 200 mg PO BID LUAN Stop: 08/09/23 20:59 Last Admin: 07/13/23 08:30 Dose: 200 mg Sennosides (Senna 8.6 Mg Tab) 8.6 mg PO HS LUAN Stop: 08/09/23 20:59 Last Admin: 07/12/23 20:44 Dose: 8.6 mg Trazodone HCl (Trazodone Hcl 100 Mg Tab) 200 mg PO HS PRN PRN Reason: Sleep Stop: 08/09/23 13:59 Last Admin: 07/12/23 22:20 Dose: 200 mg Vitamin D (Cholecalciferol 25 Mcg (1000 Units) Tab) 50 mcg PO QAM [facility] Stop: 08/10/23 08:59 Last Admin: 07/13/23 08:31 Dose: 50 mcg Warfarin Sodium (Warfarin Sod 10 Mg Tab) 10 mg PO DAILY@1600 [facility] Stop: 08/11/23 15:59 Last Admin: 07/12/23 17:41 Dose: 10 mg
[2023-07-13] MEDS: HEPARIN SOD 5,000 UNIT/0.5 ML VIAL SQ SCH (12:50)
[2023-07-14 06:33] LABS: INR 1.2 (0.9-1.1); Prothrombin Time 12.4 Seconds (9.0-12.0)
--- NOTE | 2023-07-14 13:16 | Hospitalist Progress Note ---
Date of Service July 14, 2023 Assessment & Plan (1) Chronic venous insufficiency: (2) Staph infection: (3) Peripheral neuropathy: (4) DVT (deep venous thrombosis): (5) Current use of correction anticoagulation: (6) Diabetes: (7) Migraine: (8) Sleep apnea: (9) Morbid obesity with BMI of 40.0-44.9, adult: (10) OAB (overactive bladder): (11) Depression: Plan: 58 year old F presents to the ED as recommended by the wound care clinic today after continued deterioration of a chronic dorsal left foot wound in the setting of chronic venous insufficiency s/p L GSV ablation 07/22. Patient started on Bactrim DS 3 days ago for wound cultures growing staph. She has had worsening neuropathy in the left lower extremity. No leukocytosis, does not appear septic or toxic. On examination patient left foot with erythema and cellulitis with lymphangitis streaking up the hollins to mid hollins. Ankle x-ray indicates soft tissue swelling without osseous involvement. Compliant on all of her medications including Coumadin; however, has only had one therapeutic INR result as an outpatient over the past month. Will be admitted for further evaluation and management of her deteriorating, poorly healing dorsal foot infection and lymphangitis in the setting of chronic venous insufficiency s/p L GSV ablation 07/2021. Will obtain foot CT to rule out osteomyelitis, rule out clot due to subtherapeutic INR with LLE Doppler US, obtain CRP, continue IV antibiotics and adjust based on wound cultures, WOCN consult placed and continue other medicines for chronic comorbidities. Consider involving infectious disease if no noted improvement. Cellulitis of foot, left: Chronic venous insufficiency: History of staph infection: Peripheral neuropathy: Chronic In the setting of delayed wound healing status post left GSV ablation 07/[address] Dueñas at [facility] [place]; last appointment 12/31 who indicated no surgery at that time Has been following with WOCN as outpatient most recent dressings with aqua seal; new orthotics Darco shoe given to patient at most recent appointment Follows with pain management due to persistent neuropathy in left lower extremity; Next appointment Friday 07/14 No leukocytosis; does not appear toxic Parents CRP is mildly elevated at 2.90 Takes pregabalin and carbamazepine; continue CT foot negative for osteomyelitis/abscess Started on Ancef in ED; continue and adjust based on wound culture results Appreciate podiatry input and recommendation Has had local minimal debridement which the wound requires right now No further surgery indicated Wound culture is growing Staph aureus and that is sensitive to oxacillin Will continue current antibiotic of cefazolin Blood cultures have been negative-wound culture Staph aureus sensitive to ox acillin. Has been getting cefazolin and will continue Left foot cellulitis has been improving with decreasing pain and redness and drainage from the wound Will continue current management with IV antibiotic and dressing as per the wound care nurse As HAZEL remains normal the left ankle she can have a follow-up appointment with vascular surgery as an outpatient Will start oral antibiotic with cephalexin 500 mg 4 times daily to finish the course of antibiotic Will get PT and OT evaluation and possible discharge tomorrow History of DVT: Current use of long-term anticoagulation: Chronic DVT x 2 LLE over 10 years ago Compliant with Coumadin As outpatient subtherapeutic INR's over past month with only 1 being in the 2-3 range Most recent INR 07/08/2023; 1.9 LE Doppler US negative for DVT Pt with noted enoxaparin allergy; per EMR link in 2007, patient has numerous coagulopathies noted and was seen by Dr. Sukh Espinoza; she no longer follows with him. It appears that she has been seen numerous times through coagulation clinic and have tried numerous LMWH therapies, but appears Coumadin was the best suited. Recommend following with Heme as an OPT INR noted to be 1.5 today INR remains low at 1.2 and will give 10 mg of Coumadin tonight Her INR remains subtherapeutic likely secondary to interaction with Coumadin and cefazolin Outpatient records reviewed and she has been receiving heparin for her interstitial cystitis without any problem Discussed with the pharmacist and she will be given preventive dose of heparin on top of Coumadin Has been getting heparin subcu without any rash and/or side effect so she does not have any allergic reaction to heparin INR is 1.2 today and will continue with 10 mg Coumadin [id number] diabetes: Chronic [id number] Prescribed metformin Most recent A1c 04/26; 5.4 Diabetic diet SSI ACHS while inpatient-blood sugar is maintaining Migraine: Chronic Takes Ajovy monthly; has not taken it in July RAYMOND: Morbid obesity: Chronic CPAP at night OAB: Chronic Takes Vesicare; continue Depression: Takes duloxetine; continue Disposition: PCP: Dr. Reed Code Status: Full Code VTE Prophylaxis: On Coumadin; given subtherapeutic; She is not allergic to heparin Admission and Anticipated Discharge Date Admission Date: July 10, 2023 Subjective 07/11/2023 The patient was seen and examined in medical telemetry She was brought in with worsening left leg and foot cellulitis Did have more pain but no fever and or chills Denies any chest pain and no shortness of breath 07/12/2023 The patient was seen and examined in medical telemetry unit She has been feeling much better Left leg pain is better. Swelling and redness have improved too Denies any fever and chills 07/13/2023 The patient was seen and examined in telemetry unit She has been feeling a lot better Denies any significant symptoms-no fever and or chills, denies any pain in the left lower extremity or foot She has been getting heparin for her interstitial cystitis as an outpatient 07/14/2023 The patient was seen and examined in medical telemetry unit She has been feeling much better Swelling of the left foot and pain have improved Denies any fever and chills Review of Systems Review of Systems: All systems reviewed and are unremarkable except as noted below Physical Exam Physical Exam: Sitting on a chair without any acute distress Constitutional: well developed, well nourished, + ill appearing and + obese Eyes: PERRL, conjunctivae normal, anicteric sclerae ENMT: external ear and nose normal, oropharynx normal Neck: trachea midline, no thyromegaly Respiratory: no respiratory distress Auscultation: lungs clear to auscultation bilaterally Cardiovascular: Rate/Rhythm: regular rate, regular rhythm and + bradycardic Heart Sounds: normal S1 and normal S2; no murmur Extremities: + edema Gastrointestinal (Abdomen): Inspection/Auscultation: normal bowel sounds; abdomen not distended Percussion/Palpation: abdomen soft; abdomen nontender Musculoskeletal: No acute arthritis involving any of the joints Neurologic: normal touch/pain/proprioception and moves all extremities; no focal motor deficits Lymphatic: no cervical or axillary lymphadenopathy Results & Data Results & Data Vital Signs (Past 12 Hours) Vital Signs Temp Pulse Pulse Resp BP BP Pulse Ox 07/14/23 11:21 37.0 C 67 18 107/74 96 07/14/23 07:56 36.7 C 63 18 122/81 96 07/14/23 07:08 63 07/14/23 03:45 36.9 C 68 16 102/65 95 07/14/23 02:32 14 O2 Del Method 07/14/23 11:21 Room Air 07/14/23 07:56 Room Air 07/14/23 07:08 07/14/23 03:45 Room Air, CPAP 07/14/23 02:32 Medications Administered Current Inpatient Medications Acetaminophen (Acetaminophen 325 Mg Tab) 650 mg PO Q4H PRN PRN Reason: Pain or Fever Stop: 08/09/23 12:58 Al Hydrox/Mg Hydrox/Simethicone (Aluminum/Magnesium Susp 30 Ml Udc) 15 ml PO Q4H PRN PRN Reason: Dyspepsia Stop: 08/09/23 12:58 Carbamazepine (Carbamazepine Xr 100 Mg Tabcr) 100 mg PO BID [facility] Stop: 08/09/23 20:59 Last Admin: 07/14/23 08:21 Dose: 100 mg Cephalexin HCl (Cephalexin 500 Mg Cap) 500 mg PO QID [facility]; Protocol Stop: 07/21/23 16:59 Cetirizine HCl (Cetirizine Hcl 10 Mg Tablet) 10 mg PO BID [facility] Stop: 08/09/23 20:59 Last Admin: 07/14/23 08:21 Dose: 10 mg Dextrose (Dextrose 50% 50 Ml Syringe) 25 - 50 ml IV UD PRN; Protocol PRN Reason: Hypoglycemia Protocol Stop: 08/09/23 18:03 Duloxetine HCl (Duloxetine Hcl 60 Mg Cap) 120 mg PO DAILY [facility] Stop: 08/10/23 08:59 Last Admin: 07/14/23 08:21 Dose: 120 mg Furosemide (Furosemide 20 Mg Tab) 20 mg PO BID17 [facility] Stop: 08/09/23 16:59 Last Admin: 07/14/23 08:21 Dose: 20 mg Glucagon (Glucagon For Inj 1 Mg Vial) 1 mg SQ UD PRN; Protocol PRN Reason: Hypoglycemia Protocol Stop: 08/09/23 18:03 Glucose (Glucose 40% Gel 15 Gm Tube) 15 - 30 gm PO UD PRN; Protocol PRN Reason: Hypoglycemia Protocol Stop: 08/09/23 18:03 Glucose (Glucose 10 Tab/Tube) 4 - 8 tab PO UD PRN; Protocol PRN Reason: Hypoglycemia Treatment Stop: 08/09/23 18:03 Heparin Sodium (Porcine) (Heparin Sod 5,000 Unit/0.5 Ml Vial) 5,000 units SQ Q12 [facility]; Protocol Stop: 08/12/23 10:49 Last Admin: 07/14/23 08:20 Dose: 5,000 units Insulin Aspart (Insulin Aspart Per Unit Charge) 0 units SC ACHS [facility] Stop: 08/09/23 20:59 Last Admin: 07/14/23 12:18 Dose: Not Given Lorazepam (Lorazepam 1 Mg Tab) 1 mg PO TID PRN PRN Reason: Anxiety Stop: 08/09/23 13:59 Magnesium Hydroxide (Magnesium Hydroxide Susp 30 Ml Udc) 30 ml PO Q12H PRN PRN Reason: Constipation Stop: 08/09/23 12:58 Magnesium Oxide (Magnesium Oxide 400 Mg Tab) 400 mg PO QAM [facility] Stop: 08/10/23 08:59 Last Admin: 07/14/23 08:21 Dose: 400 mg Miscellaneous (Carbohydrates For Hypoglycemia ) 15 - 30 gm PO UD PRN PRN Reason: Hypoglycemia Protocol Stop: 08/09/23 18:03 Last Admin: 07/10/23 17:43 Dose: 15 gm Montelukast Sodium (Montelukast Sodium 10 Mg Tablet) 10 mg PO HS [facility] Stop: 08/09/23 20:59 Last Admin: 07/13/23 19:17 Dose: 10 mg Ondansetron HCl (Ondansetron Inj 2 Mg/Ml 2 Ml Vial) 4 mg IV Q6H PRN PRN Reason: Nausea Stop: 08/09/23 12:58 Oxybutynin Chloride (Oxybutynin Chloride Xl 5 Mg Tabcr) 10 mg PO DAILY [facility] Stop: 08/10/23 08:59 Last Admin: 07/14/23 08:21 Dose: 10 mg Oxycodone HCl (Oxycodone Hcl Ir 5 Mg Tab (Immediate Release)) 5 mg PO Q6H PRN PRN Reason: Mod-Sev Pain (Scale 4-10) Stop: 07/24/23 21:15 Last Admin: 07/14/23 12:38 Dose: 5 mg Polyethylene Glycol (Polyethylene (Miralax) 17 Gm Pack) 17 gm PO DAILY PRN PRN Reason: Constipation Stop: 08/09/23 12:58 Potassium Chloride (Potassium Chloride 10 Meq Tabcr) 10 meq PO DAILY [facility] Stop: 08/10/23 08:59 Last Admin: 07/14/23 08:21 Dose: 10 meq Pregabalin (Pregabalin 100 Mg Cap) 100 mg PO BID [facility] Stop: 08/09/23 20:59 Last Admin: 07/14/23 08:20 Dose: 100 mg Pregabalin (Pregabalin 100 Mg Cap) 200 mg PO BID [facility] Stop: 08/09/23 20:59 Last Admin: 07/14/23 08:20 Dose: 200 mg Sennosides (Senna 8.6 Mg Tab) 8.6 mg PO HS [facility] Stop: 08/09/23 20:59 Last Admin: 07/13/23 19:17 Dose: 8.6 mg Trazodone HCl (Trazodone Hcl 100 Mg Tab) 200 mg PO HS PRN PRN Reason: Sleep Stop: 08/09/23 13:59 Last Admin: 07/13/23 21:30 Dose: 200 mg Vitamin D (Cholecalciferol 25 Mcg (1000 Units) Tab) 50 mcg PO QAM [facility] Stop: 08/10/23 08:59 Last Admin: 07/14/23 08:21 Dose: 50 mcg Warfarin Sodium (Warfarin Sod 10 Mg Tab) 10 mg PO DAILY@1600 [facility] Stop: 08/11/23 15:59 Last Admin: 07/13/23 17:28 Dose: 10 mg
[2023-07-14] MEDS ORDERED: WARFARIN SOD 5 MG TAB PO SCH (16:00)
[2023-07-14] MEDS: cephALEXin 500 MG CAP PO SCH (17:20)
[2023-07-15 07:31] LABS: INR 1.3 (0.9-1.1); Prothrombin Time 13.4 Seconds (9.0-12.0)
--- NOTE | 2023-07-15 11:05 | Hospitalist Progress Note ---
Date of Service July 15, 2023 Assessment & Plan (1) Chronic venous insufficiency: (2) Staph infection: (3) Peripheral neuropathy: (4) DVT (deep venous thrombosis): (5) Current use of penitentiary anticoagulation: (6) Diabetes: (7) Migraine: (8) Sleep apnea: (9) Morbid obesity with BMI of 40.0-44.9, adult: (10) OAB (overactive bladder): (11) Depression: Plan: 58 year old F presents to the ED as recommended by the wound care clinic today after continued deterioration of a chronic dorsal left foot wound in the setting of chronic venous insufficiency s/p L GSV ablation 07/22. Patient started on Bactrim DS 3 days ago for wound cultures growing staph. She has had worsening neuropathy in the left lower extremity. No leukocytosis, does not appear septic or toxic. On examination patient left foot with erythema and cellulitis with lymphangitis streaking up the hollins to mid hollins. Ankle x-ray indicates soft tissue swelling without osseous involvement. Compliant on all of her medications including Coumadin; however, has only had one therapeutic INR result as an outpatient over the past month. Will be admitted for further evaluation and management of her deteriorating, poorly healing dorsal foot infection and lymphangitis in the setting of chronic venous insufficiency s/p L GSV ablation 07/2021. Will obtain foot CT to rule out osteomyelitis, rule out clot due to subtherapeutic INR with LLE Doppler US, obtain CRP, continue IV antibiotics and adjust based on wound cultures, WOCN consult placed and continue other medicines for chronic comorbidities. Consider involving infectious disease if no noted improvement. Cellulitis of foot, left: Chronic venous insufficiency: History of staph infection: Peripheral neuropathy: Chronic In the setting of delayed wound healing status post left GSV ablation 07/[address] Dueñas at [facility] [place]; last appointment 12/31 who indicated no surgery at that time Has been following with WOCN as outpatient most recent dressings with aqua seal; new orthotics Darco shoe given to patient at most recent appointment Follows with pain management due to persistent neuropathy in left lower extremity; Next appointment Friday 07/14 No leukocytosis; does not appear toxic Parents CRP is mildly elevated at 2.90 Takes pregabalin and carbamazepine; continue CT foot negative for osteomyelitis/abscess Started on Ancef in ED; continue and adjust based on wound culture results Appreciate podiatry input and recommendation Has had local minimal debridement which the wound requires right now No further surgery indicated Wound culture is growing Staph aureus and that is sensitive to oxacillin Will continue current antibiotic of cefazolin Blood cultures have been negative-wound culture Staph aureus sensitive to ox acillin. Has been getting cefazolin and will continue Left foot cellulitis has been improving with decreasing pain and redness and drainage from the wound Will continue current management with IV antibiotic and dressing as per the wound care nurse As HAZEL remains normal the left ankle she can have a follow-up appointment with vascular surgery as an outpatient Will start oral antibiotic with cephalexin 500 mg 4 times daily to finish the course of antibiotic Will get PT and OT evaluation and possible discharge tomorrow Has had PT and OT and recommended home Her cellulitis of the left foot has been improving and she has an appointment as an outpatient with the wound clinic She will be given oral Keflex to continue for the next few days to finish the course History of DVT: Current use of long-term anticoagulation: Chronic DVT x 2 LLE over 10 years ago Compliant with Coumadin As outpatient subtherapeutic INR's over past month with only 1 being in the 2-3 range Most recent INR 07/08/2023; 1.9 LE Doppler US negative for DVT Pt with noted enoxaparin allergy; per EMR link in 2007, patient has numerous coagulopathies noted and was seen by Dr. Sukh Espinoza; she no longer follows with him. It appears that she has been seen numerous times through coagulation clinic and have tried numerous LMWH therapies, but appears Coumadin was the best suited. Recommend following with Heme as an OPT INR noted to be 1.5 today INR remains low at 1.2 and will give 10 mg of Coumadin tonight Her INR remains subtherapeutic likely secondary to interaction with Coumadin and cefazolin Outpatient records reviewed and she has been receiving heparin for her interstitial cystitis without any problem Discussed with the pharmacist and she will be given preventive dose of heparin on top of Coumadin Has been getting heparin subcu without any rash and/or side effect so she does not have any allergic reaction to heparin INR is 1.2 today and will continue with 10 mg Coumadin INR is 1.3 today and she will be given Lovenox and there are discussed with her given the history of rash with Lovenox but she has been tolerating heparin well She may need a day or 2 of Lovenox as an outpatient until the Coumadin is therapeutic [id number] diabetes: Chronic [id number] Prescribed metformin Most recent A1c 04/26; 5.4 Diabetic diet SSI ACHS while inpatient-blood sugar is maintaining Migraine: Chronic Takes Ajovy monthly; has not taken it in July RAYMOND: Morbid obesity: Chronic CPAP at night OAB: Chronic Takes Vesicare; continue Depression: Takes duloxetine; continue Disposition: PCP: Dr. Reed Code Status: Full Code VTE Prophylaxis: On Coumadin; given subtherapeutic; She is not allergic to heparin Admission and Anticipated Discharge Date Admission Date: July 10, 2023 Subjective 07/11/2023 The patient was seen and examined in medical telemetry She was brought in with worsening left leg and foot cellulitis Did have more pain but no fever and or chills Denies any chest pain and no shortness of breath 07/12/2023 The patient was seen and examined in medical telemetry unit She has been feeling much better Left leg pain is better. Swelling and redness have improved too Denies any fever and chills 07/13/2023 The patient was seen and examined in telemetry unit She has been feeling a lot better Denies any significant symptoms-no fever and or chills, denies any pain in the left lower extremity or foot She has been getting heparin for her interstitial cystitis as an outpatient 07/14/2023 The patient was seen and examined in medical telemetry unit She has been feeling much better Swelling of the left foot and pain have improved Denies any fever and chills 07/15/2023 The patient was seen and examined in medical telemetry unit She has been feeling much better and has had physical therapy with recommendation to go home Her INR is not therapeutic She has been on heparin without any side effect so she will be given Lovenox with Coumadin until the INR is therapeutic at home Review of Systems Review of Systems: All systems reviewed and are unremarkable except as noted below Physical Exam Physical Exam: Sitting on a chair without any acute distress Constitutional: well developed, well nourished, + ill appearing and + obese Eyes: PERRL, conjunctivae normal, anicteric sclerae ENMT: external ear and nose normal, oropharynx normal Neck: trachea midline, no thyromegaly Respiratory: no respiratory distress Auscultation: lungs clear to auscultation bilaterally Cardiovascular: Rate/Rhythm: regular rate, regular rhythm and + bradycardic Heart Sounds: normal S1 and normal S2; no murmur Extremities: + edema Gastrointestinal (Abdomen): Inspection/Auscultation: normal bowel sounds; abdomen not distended Percussion/Palpation: abdomen soft; abdomen nontender Musculoskeletal: No acute arthritis involving any of the joints Neurologic: normal touch/pain/proprioception and moves all extremities; no focal motor deficits Lymphatic: no cervical or axillary lymphadenopathy Results & Data Results & Data Vital Signs (Past 12 Hours) Vital Signs Temp Pulse Pulse Resp BP BP Pulse Ox 07/15/23 07:18 36.6 C 77 18 119/74 98 07/15/23 07:03 48 L 07/15/23 03:25 36.4 C L 62 18 121/74 96 07/15/23 03:11 14 07/14/23 23:40 62 O2 Del Method 07/15/23 07:18 Room Air 07/15/23 07:03 07/15/23 03:25 Room Air, CPAP 07/15/23 03:11 07/14/23 23:40 Medications Administered Current Inpatient Medications Acetaminophen (Acetaminophen 325 Mg Tab) 650 mg PO Q4H PRN PRN Reason: Pain or Fever Stop: 08/09/23 12:58 Al Hydrox/Mg Hydrox/Simethicone (Aluminum/Magnesium Susp 30 Ml Udc) 15 ml PO Q4H PRN PRN Reason: Dyspepsia Stop: 08/09/23 12:58 Carbamazepine (Carbamazepine Xr 100 Mg Tabcr) 100 mg PO BID [facility] Stop: 08/09/23 20:59 Last Admin: 07/15/23 08:43 Dose: 100 mg Cephalexin HCl (Cephalexin 500 Mg Cap) 500 mg PO QID [facility]; Protocol Stop: 07/21/23 16:59 Last Admin: 07/15/23 08:43 Dose: 500 mg Cetirizine HCl (Cetirizine Hcl 10 Mg Tablet) 10 mg PO BID [facility] Stop: 08/09/23 20:59 Last Admin: 07/15/23 08:43 Dose: 10 mg Dextrose (Dextrose 50% 50 Ml Syringe) 25 - 50 ml IV UD PRN; Protocol PRN Reason: Hypoglycemia Protocol Stop: 08/09/23 18:03 Duloxetine HCl (Duloxetine Hcl 60 Mg Cap) 120 mg PO DAILY [facility] Stop: 08/10/23 08:59 Last Admin: 07/15/23 08:43 Dose: 120 mg Furosemide (Furosemide 20 Mg Tab) 20 mg PO BID17 [facility] Stop: 08/09/23 16:59 Last Admin: 07/15/23 08:43 Dose: 20 mg Glucagon (Glucagon For Inj 1 Mg Vial) 1 mg SQ UD PRN; Protocol PRN Reason: Hypoglycemia Protocol Stop: 08/09/23 18:03 Glucose (Glucose 40% Gel 15 Gm Tube) 15 - 30 gm PO UD PRN; Protocol PRN Reason: Hypoglycemia Protocol Stop: 08/09/23 18:03 Glucose (Glucose 10 Tab/Tube) 4 - 8 tab PO UD PRN; Protocol PRN Reason: Hypoglycemia Treatment Stop: 08/09/23 18:03 Insulin Aspart (Insulin Aspart Per Unit Charge) 0 units SC ACHS [facility] Stop: 08/09/23 20:59 Last Admin: 07/15/23 08:09 Dose: Not Given Lorazepam (Lorazepam 1 Mg Tab) 1 mg PO TID PRN PRN Reason: Anxiety Stop: 08/09/23 13:59 Magnesium Hydroxide (Magnesium Hydroxide Susp 30 Ml Udc) 30 ml PO Q12H PRN PRN Reason: Constipation Stop: 08/09/23 12:58 Magnesium Oxide (Magnesium Oxide 400 Mg Tab) 400 mg PO QAM [facility] Stop: 08/10/23 08:59 Last Admin: 07/15/23 08:44 Dose: 400 mg Miscellaneous (Carbohydrates For Hypoglycemia ) 15 - 30 gm PO UD PRN PRN Reason: Hypoglycemia Protocol Stop: 08/09/23 18:03 Last Admin: 07/10/23 17:43 Dose: 15 gm Montelukast Sodium (Montelukast Sodium 10 Mg Tablet) 10 mg PO HS [facility] Stop: 08/09/23 20:59 Last Admin: 07/14/23 20:27 Dose: 10 mg Ondansetron HCl (Ondansetron Inj 2 Mg/Ml 2 Ml Vial) 4 mg IV Q6H PRN PRN Reason: Nausea Stop: 08/09/23 12:58 Oxybutynin Chloride (Oxybutynin Chloride Xl 5 Mg Tabcr) 10 mg PO DAILY [facility] Stop: 08/10/23 08:59 Last Admin: 07/15/23 08:44 Dose: 10 mg Oxycodone HCl (Oxycodone Hcl Ir 5 Mg Tab (Immediate Release)) 5 mg PO Q6H PRN PRN Reason: Mod-Sev Pain (Scale 4-10) Stop: 07/24/23 21:15 Last Admin: 07/14/23 12:38 Dose: 5 mg Polyethylene Glycol (Polyethylene (Miralax) 17 Gm Pack) 17 gm PO DAILY PRN PRN Reason: Constipation Stop: 08/09/23 12:58 Potassium Chloride (Potassium Chloride 10 Meq Tabcr) 10 meq PO DAILY [facility] Stop: 08/10/23 08:59 Last Admin: 07/15/23 08:44 Dose: 10 meq Pregabalin (Pregabalin 100 Mg Cap) 100 mg PO BID [facility] Stop: 08/09/23 20:59 Last Admin: 07/15/23 08:43 Dose: 100 mg Pregabalin (Pregabalin 100 Mg Cap) 200 mg PO BID [facility] Stop: 08/09/23 20:59 Last Admin: 07/15/23 08:43 Dose: 200 mg Sennosides (Senna 8.6 Mg Tab) 8.6 mg PO HS [facility] Stop: 08/09/23 20:59 Last Admin: 07/14/23 20:28 Dose: 8.6 mg Trazodone HCl (Trazodone Hcl 100 Mg Tab) 200 mg PO HS PRN PRN Reason: Sleep Stop: 08/09/23 13:59 Last Admin: 07/14/23 21:26 Dose: 200 mg Vitamin D (Cholecalciferol 25 Mcg (1000 Units) Tab) 50 mcg PO QAM [facility] Stop: 08/10/23 08:59 Last Admin: 07/15/23 08:44 Dose: 50 mcg Warfarin Sodium (Warfarin Sod 10 Mg Tab) 10 mg PO DAILY@1600 [facility] Stop: 08/11/23 15:59 Last Admin: 07/14/23 17:20 Dose: 10 mg
[2023-07-15] MEDS: ENOXAPARIN 100 MG/1ML SYR SQ ONE (12:00)
--- NOTE | 2023-07-15 15:30 | Podiatry Progress Note ---
Date of Service July 14, 2023 Assessment & Plan (1) Left leg cellulitis: (2) Surgical wound, non healing: (3) Chronic ulcer of left foot with fat layer exposed: Plan - Pt seen at bedside. - Wound cleaned with betadine, gently debrided at bedside. No deep probing noted. No palpable abscess formation. - Continue IV antibiotics. Home on oral antibiotics in the next day or so. - Recommend vascular consult; arterial doppler performed, underlying small vessel vascular disease - No surgery planned. Continue wound care and outpatient wound care follow-up, as well. We are happy to offer further surgical intervention, if needed, if this continues to fail to heal. Admission and Anticipated Discharge Date Admission Date: July 10, 2023 Anticipated date of discharge: 07/15/23 Subjective Patient seen at bedside. No new concerns. She states that she is doing well with antibiotics and wound care on this hospitalization. She states that she is currently scheduled to be discharged home tomorrow. She denies any new pain or signs or symptoms of infection. Review of Systems 2 Constitutional: no fever, no chills and no fatigue Eyes: no problem reported Ear, Nose, Mouth, Throat: no problem reported Respiratory: no problem reported Cardiovascular: + edema; no problem reported Gastrointestinal: no nausea, no vomiting and no problem reported Genitourinary: no problem reported Musculoskeletal: no problem reported Integumentary: + skin ulcer, + wounds and + erythema Neurologic: + loss of sensation, + numbness and + pa resthesia; no generalized weakness Psychiatric: no problem reported Physical Exam Physical Exam: lower extremity focused exam: DP/PT is 0/4 bilaterally. DFT is brisk digits, though advanced trophic changes are noted otherwise. This consists of atrophic skin changes, decreased hair growth, nail dystrophy, and this nonhealing ulceration. This dorsal foot ulceration is noted overlying the second metatarsal phalangeal joint. The ulcer itself is deep to the subcutaneous fat with a relatively healthy bed. No deep probing is noted. Fibrous slough is appreciated, though no undermining of the wound edges is noted. The wound itself measures 1.6 x 1.0 x 0.3 cm. There is cellulitis extending up to the proximal tibia and is well demarcated with marker prior exam, likely by the emergency department. It has not progressed past the delineation. Pain sensation is intact to the ulceration with relative decrease in sensation globally to the foot and ankle otherwise. Constitutional: WD/WN, vitals as above + ill appearing and + obese Eyes: PERRL, conjunctivae normal, anicteric sclerae ENMT: external ear and nose normal, oropharynx normal Neck: trachea midline, no thyromegaly normal visual inspection Respiratory: normal respiratory effort; no respiratory distress Cardiovascular: Rate/Rhythm: regular rate and regular rhythm Chest (Breasts): Chest: normal inspection of chest Gastrointestinal (Abdomen): Inspection/Auscultation: abdomen normal to inspection Percussion/Palpation: + abdomen tender and abdomen soft Musculoskeletal: no cyanosis or clubbing, extremities motor strength 5/5 Head/Neck/Chest: normocephalic and head atraumatic Extremities: extremities normal to inspection Skin: + ulcer, + wound, + skin atrophy and + n ails dystrophic Neurologic: moves all extremities and awake; no focal motor deficits Psychiatric: A+Ox3, euthymic affect Results & Data Results & Data Vital Signs (Past 12 Hours) Vital Signs Temp Pulse Pulse Resp BP BP Pulse Ox 07/15/23 14:38 67 07/15/23 11:30 36.8 C 63 16 121/80 98 07/15/23 07:18 36.6 C 77 18 119/74 98 07/15/23 07:03 48 L 07/15/23 03:25 36.4 C L 62 18 121/74 96 O2 Del Method 07/15/23 14:38 07/15/23 11:30 Room Air 07/15/23 07:18 Room Air 07/15/23 07:03 07/15/23 03:25 Room Air, CPAP (2) Surgical wound, non healing Encounter type: subsequent encounter Qualified Code(s): T81.89XD - Other complications of procedures, not elsewhere classified, subsequent encounter
[2023-07-15] MEDS: WARFARIN SOD 2.5 MG TAB PO STA (17:33)
--- NOTE | 2023-07-15 19:03 | Discharge Summary ---
Date of Service July 15, 2023 Admission HPI Per Admitting Provider Ms. Mckinney is a 58 year old that presented to the ED as recommended by the wound care clinic today after deterioration of a chronic dorsal left foot wound In the setting of chronic venous insufficiency. Patient started on Bactrim DS 3 days ago for wound cultures growing staph. Patient is status post left GSV ablation 07/22 with delayed wound healing. She has had worsening neuropathy in the left lower extremity and has been following with pain management and taking pregabalin. No leukocytosis, does not appear septic or toxic. On examination patient left foot with erythema and cellulitis with lymphangitis streaking up the hollins to mid hollins. Ankle x-ray indicates soft tissue swelling without osseous involvement. Due to complexity of poorly healing wound would like to rule out osteomyelitis with a left ankle/foot CT. Creatinine 0.94. Patient will be admitted for further evaluation and management of her left dorsal foot cellulitis with IV antibiotics, adjust based on wound culture, WOCN consult for wound dressing changes and evaluation, continue IV fluids for now; throw threshold for clot in LLE due to being compliant on Coumadin. Patient denies headache, visual or auditory changes, chest pain, palpitations, shortness of breath, abdominal pain or tenderness, urinary or bowel changes, altered mental status, recent falls or trauma. Patient denies tobacco, alcohol, recreational drug use including medical marijuana. Patient has been compliant on all of her medications including Coumadin; however, has only had one therapeutic INR result as an outpatient over the past month. Pt with noted enoxaparin allergy; per EMR link in 2007, patient has numerous coagulopathies noted and was seen by Dr. Sukh Espinoza; she no longer follows with him. It appears that she has been seen numerous tiems through coagulation clinic and have tried numerous LMWH therapies, but appears Coumadin was the best suited. Patient reports she has no longer been taking metformin. Most recent A1c 04/30/2023 5.4. Patient Will be admitted for further evaluation and management of her deteriorating, poorly healing dorsal foot infection and lymphangitis in the setting of chronic venous insufficiency s/p L GSV ablation 07/2021. Will obtain foot CT to rule out osteomyelitis, rule out clot due to subtherapeutic INR with LLE Doppler US, obtain CRP, continue IV antibiotics and adjust based on wound cultures, WOCN consult placed and continue other medicines for chronic comorbidities. Consider involving infectious disease if no noted improvement. Admission Exam Per Admitting Provider Physical Exam: Neuro: AAOx4, PERRLA, no aphagia, memory changes, CNII-XII grossly intact HEENT: head normocephalic, moist mucus membranes CV: S1/S2, (-) M/G/R, (-) edema, cap refill < 3 seconds Resp: Lungs CTA in all sanchez. On RA GI: Abdomen S/NT/ND, Ax4 bowel sounds, (-) CVA tenderness Musculoskeletal: 5/5 B/L UE strength, 5/5 B/L LE strength. No gait disturbance Skin: (-) rashes , (+) erythema. L dorsal foot infection; quarter-sized non- healing wound, (+) seroussangenous drainage (-) malodor. Anterior lymphangitic streak Psych: euthymic mood Principal Diagnosis Chronic ulcer of left foot, chronic venous insufficiency, history of DVT on long-term anticoagulation, type 2 diabetes Discharge Exam Sitting on a chair without any acute distress Constitutional well developed, well nourished, + ill appearing and + obese Eyes PERRL, conjunctivae normal, anicteric sclerae ENMT external ear and nose normal, oropharynx normal Neck trachea midline, no thyromegaly Respiratory no respiratory distress Auscultation: lungs clear to auscultation bilaterally Cardiovascular Rate/Rhythm: regular rate, regular rhythm and + bradycardic Heart Sounds: normal S1 and normal S2; no murmur Extremities: + edema Gastrointestinal (Abdomen) Inspection/Auscultation: normal bowel sounds; abdomen not distended Percussion/Palpation: abdomen soft; abdomen nontender Neurologic normal touch/pain/proprioception and moves all extremities; no focal motor deficits Lymphatic no cervical or axillary lymphadenopathy Discharge Data Allergies Allergy/AdvReac Type Severity Reaction Status Date / Time enoxaparin Allergy Severe Hives Verified 07/10/23 07:57 doxycycline Allergy Intermediate Hives Verified 07/10/23 07:57 hydrocortisone Allergy Mild Rash Verified 07/10/23 07:57 Penicillins Allergy Unknown Unknown Verified 07/10/23 07:57 childhood reaction cephalexin Allergy Verified 07/10/23 07:57 suture AdvReac Intermediate vicryl Verified 07/10/23 07:57 nylon-non healing would Consultations 07/10/23 12:55 ED Decision to Admit Stat 07/10/23 14:46 Consult Podiatry Routine Ordered Studies 07/10/23 13:53 US venous doppler LE LT Stat 07/10/23 13:59 CT angio foot LT wo/w con Stat 07/11/23 US ankle/brachial index ltd Routine Hospital Course (1) Chronic venous insufficiency: (2) Staph infection: (3) Peripheral neuropathy: (4) DVT (deep venous thrombosis): (5) Current use of senior living anticoagulation: (6) Diabetes: (7) Migraine: (8) Sleep apnea: (9) Morbid obesity with BMI of 40.0-44.9, adult: (10) OAB (overactive bladder): (11) Depression: 58 year old F presents to the ED as recommended by the wound care clinic today after continued deterioration of a chronic dorsal left foot wound in the setting of chronic venous insufficiency s/p L GSV ablation 07/22. Patient started on Bactrim DS 3 days ago for wound cultures growing staph. She has had worsening neuropathy in the left lower extremity. No leukocytosis, does not appear septic or toxic. On examination patient left foot with erythema and cellulitis with lymphangitis streaking up the hollins to mid hollins. Ankle x-ray indicates soft tissue swelling without osseous involvement. Compliant on all of her medications including Coumadin; however, has only had one therapeutic INR result as an outpatient over the past month. Will be admitted for further evaluation and management of her deteriorating, poorly healing dorsal foot infection and lymphangitis in the setting of chronic venous insufficiency s/p L GSV ablation 07/2021. Will obtain foot CT to rule out osteomyelitis, rule out clot due to subtherapeutic INR with LLE Doppler US, obtain CRP, continue IV antibiotics and adjust based on wound cultures, WOCN consult placed and continue other medicines for chronic comorbidities. Consider involving infectious disease if no noted improvement. Cellulitis of foot, left: Chronic venous insufficiency: History of staph infection: Peripheral neuropathy: Chronic In the setting of delayed wound healing status post left GSV ablation 07/[address] Dueñas at [facility]; last appointment 12/31 who indicated no surgery at that time Has been following with WOCN as outpatient most recent dressings with aqua seal; new orthotics Darco shoe given to patient at most recent appointment Follows with pain management due to persistent neuropathy in left lower extremity; Next appointment Friday 07/14 No leukocytosis; does not appear toxic Parents CRP is mildly elevated at 2.90 Takes pregabalin and carbamazepine; continue CT foot negative for osteomyelitis/abscess Started on Ancef in ED; continue and adjust based on wound culture results Appreciate podiatry input and recommendation Has had local minimal debridement which the wound requires right now No further surgery indicated Wound culture is growing Staph aureus and that is sensitive to oxacillin Will continue current antibiotic of cefazolin Blood cultures have been negative-wound culture Staph aureus sensitive to oxacillin. Has been getting cefazolin and will continue Left foot cellulitis has been improving with decreasing pain and redness and drainage from the wound Will continue current management with IV antibiotic and dressing as per the wound care nurse As HAZEL remains normal the left ankle she can have a follow-up appointment with vascular surgery as an outpatient Will start oral antibiotic with cephalexin 500 mg 4 times daily to finish the course of antibiotic Will get PT and OT evaluation and possible discharge tomorrow Has had PT and OT and recommended home Her cellulitis of the left foot has been improving and she has an appointment as an outpatient with the wound clinic She will be given oral Keflex to continue for the next few days to finish the course History of DVT: Current use of long-term anticoagulation: Chronic DVT x 2 LLE over 10 years ago Compliant with Coumadin As outpatient subtherapeutic INR's over past month with only 1 being in the 2-3 range Most recent INR 07/08/2023; 1.9 LE Doppler US negative for DVT Pt with noted enoxaparin allergy; per EMR link in 2007, patient has numerous coagulopathies noted and was seen by Dr. Sukh Espinoza; she no longer follows with him. It appears that she has been seen numerous times through coagulation clinic and have tried numerous LMWH therapies, but appears Coumadin was the best suited. Recommend following with Heme as an OPT INR noted to be 1.5 today INR remains low at 1.2 and will give 10 mg of Coumadin tonight Her INR remains subtherapeutic likely secondary to interaction with Coumadin and cefazolin Outpatient records reviewed and she has been receiving heparin for her interstitial cystitis without any problem Discussed with the pharmacist and she will be given preventive dose of heparin on top of Coumadin Has been getting heparin subcu without any rash and/or side effect so she does not have any allergic reaction to heparin INR is 1.2 today and will continue with 10 mg Coumadin INR is 1.3 today and she will be given Lovenox and there are discussed with her given the history of rash with Lovenox but she has been tolerating heparin well She may need a day or 2 of Lovenox as an outpatient until the Coumadin is therapeutic [id number] diabetes: Chronic [id number] Prescribed metformin Most recent A1c 04/26; 5.4 Diabetic diet SSI ACHS while inpatient-blood sugar is maintaining Migraine: Chronic Takes Ajovy monthly; has not taken it in July RAYMOND: Morbid obesity: Chronic CPAP at night OAB: Chronic Takes Vesicare; continue Depression: Takes duloxetine; continue Disposition: PCP: Dr. Reed Code Status: Full Code VTE Prophylaxis: On Coumadin; given subtherapeutic; She is not allergic to heparin Total Time Total Time Spent Total Time Spent (In Minutes): 40 minutes Discharge Plan Discharge Items Patient Disposition: Home - Self-Care Reason For Visit: NON-HEALING CELLULITIS Discharge Diagnosis: Chronic ulcer of left foot, chronic venous insufficiency, history of DVT on long-term anticoagulation, type 2 diabetes Condition on Discharge: Good Activity: Resume your previous activity Non-emergency contact: Primary Care Provider Call non-emergency contact if: you have any medication questions and your symptoms worsen Follow-up/Referrals: [facility] [Other] - 07/17/23 8:00 am Rama Reed MD [Primary Care Provider] - 07/18/23 8:20 am (Date & Time 07/18/2023 8:20 AM Provider Godfrey Marquis MD [facility] ) Diet: Carb Consistent or DM2 Addtl Attending Provider Instructions: Please take precautions to avoid falls You will need to take Lovenox subcu 2 times a day for a day or 2 until your INR is therapeutic Continue Coumadin as before and check your INR daily and stop Lovenox when INR is more than 2 Finish the course of antibiotic Wound care dressing as advised Please keep appointments with the healthcare providers Pending Studies at Discharge: No Stand-Alone Forms: My [facility], Smoking Cessation Medications and DC Order Prescriptions: New cephalexin 500 mg Capsule 500 mg PO QID Qty: 20 0RF enoxaparin [Lovenox] 120 mg/0.8 mL syringe 120 mg subcut Q12H Qty: 6 0RF Continued solifenacin 10 mg tablet 10 mg PO DAILY duloxetine [Cymbalta] 60 mg capsule,delayed release(DR/EC) 120 mg PO DAILY clotrimazole 1 % cream 1 applic topical BID pregabalin 100 mg capsule 100 mg PO BID Qty: 60 0RF metformin 500 mg tablet 2,000 mg PO HS tramadol 50 mg tablet 50 - 100 mg PO Q6H PRN (Reason: pain) Qty: 60 0RF carbamazepine [Carbatrol] 100 mg capsule, ER multiphase 12 hr 100 mg PO BID cetirizine [Zyrtec] 10 mg Tablet 10 mg PO BID montelukast [Singulair] 10 mg Tablet 10 mg PO HS ascorbic acid (vitamin C) 100 mg Tablet,Chewable 300 mg PO QAM pregabalin [Lyrica] 200 mg Capsule 200 mg PO BID cholecalciferol (vitamin D3) [Vitamin D3] 50 mcg (2,000 unit) Tablet 2,000 unit PO QAM magnesium oxide 400 mg magnesium Tablet 400 mg PO QAM albuterol sulfate 90 mcg/actuation Aero Powdr Breath Act W/Sensor 1 inh INHALATION Q6H PRN (Reason: Shortness Of Breath) warfarin 5 mg Tablet 5 - 10 mg PO DIRECTED Rx Instructions: 5 mg orally; QPM--TAKES 5 MG ON MONDAYS ONLY, THEN 10 MG EVERY ALL OTHER DAYS OF THE WEEK. dose is adjusted per Coumadin Clinic. Ajovy Autoinjector 225 mg/1.5 mL Auto-Injector 225 mg SUBCUT MONTHLY Rx Instructions: PER PT USUALLY AROUNG THE MIDDLE OF MONTH. potassium chloride 10 mEq tablet,ER particles/crystals 10 meq PO DAILY furosemide [Lasix] 20 mg Tablet 20 mg PO BID trazodone 100 mg tablet 200 mg PO HS PRN (Reason: Sleep) multivit with min-folic acid [Adult Multivitamin Gummies] 200 mcg Tablet,Chewable 2 tab PO DAILY sennosides [Senokot] 8.6 mg tablet 8.6 mg PO HS Qty: 30 0RF lorazepam [Ativan] 1 mg tablet 1 mg PO TID PRN (Reason: Anxiety) Discontinued sulfamethoxazole-trimethoprim [Bactrim DS] 800-160 mg tablet 1 tab PO BID 14 Days Qty: 28 0RF Discharge Orders: Discharge Order (Routine); Ordered 07/15/23 Ordered By: Rogers Quinn Admission Data Admit Date/Time: 07/10/23 12:59 Attending Provider: Rogers Quinn Admit Provider: Kya Ahumada Primary Care Provider: Rama Reed Other Providers: Kya Ahumada; Lauro Borjas Other Interventions: Discharge Summary Assessment (RN) Last Done: 07/15/23 17:37
== END 2023-07-15 18:54 | disposition home or self-care (01) | DRG 603 ==
LOC: ED 08:48 → SUATTDRO 12:59 → 2N 12:59